=== PATIENT | female | born 1960 ===

== ENCOUNTER 2020-10-23 08:24 | Outpatient (REF) | payer OTHER, SELFPAY ==
--- NOTE | 2020-10-23 08:29 | MM_ITS ---
EXAMINATION: MM SCREENING DIGITAL BREAST TOMOSYNTHESIS, BILATERAL CLINICAL INFORMATION: Screening. Asymptomatic. The lifetime risk of breast cancer based on the Tyrer-Cuzick Model is 8%. COMPARISON: Mammography: 10/06/2018, 08/29/2017 TECHNIQUE: Digital breast tomosynthesis is performed in both the craniocaudal and mediolateral oblique views along with computer-aided detection (CAD). Synthesized 2D images are generated from the tomosynthesis. FINDINGS: The breasts are heterogeneously dense, which may obscure small masses (ACR BI-RADS breast composition Category c). There are no significant masses, abnormal calcifications, or other abnormalities. There are bilateral vascular calcifications. Some superimposed digital processing artifact from the vascular calcifications are seen inner right breast on synthesized right CC view. The axilla and skin contours are unremarkable. No significant changes. MM/MM tomosynthesis screening BI IMPRESSION: No significant changes from prior exams. ASSESSMENT: BI-RADS 2: Benign RECOMMENDATION: Routine annual mammography screening. This patient's information was entered into a reminder system with a target due date for their next mammogram.
== END 2020-10-23 08:25 | disposition home or self-care (01) ==
LOC: HO.MAMMO 08:24
PROVIDERS: PCP Internal Medicine; Visit Provider Internal Medicine
DX: Z12.31 Encounter for screening mammogram for malignant neoplasm of breast (principal)
CPT/HCPCS: 77063; 77067

== ENCOUNTER 2020-10-23 09:36 | Outpatient (REF) | payer OTHER, SELFPAY ==
[2020-10-25 20:57] LABS: TS Negative Control Passed; TS Panel A 6; TS Panel B 0; TS Positive Control Passed; TSpotTB BORDERLINE (SeeBelow)
== END 2020-10-23 09:37 | disposition home or self-care (01) ==
LOC: HO.HMGCLDS 09:36
PROVIDERS: PCP Internal Medicine; Visit Provider Internal Medicine
DX: Z11.1 Encounter for screening for respiratory tuberculosis (principal); Z12.31 Encounter for screening mammogram for malignant neoplasm of breast
CPT/HCPCS: 86481

== ENCOUNTER 2021-02-27 13:57 | Outpatient (REF) | payer OTHER, SELFPAY ==
[2021-02-27 16:54] LABS: Alanine Aminotransferase 23 U/L (0-31); Albumin Level 4.5 g/dL (3.5-5.0); Alkaline Phosphatase 100 U/L (39-117); Anion Gap 13 (12-20); Aspartate Amino Transferase 14 U/L (5-31); Bilirubin Total 0.7 mg/dL (0.0-1.0); Blood Urea Nitrogen 14 mg/dL (9-16); Calcium 9.4 mg/dL (8.4-10.2); Carbon Dioxide 27 mmol/L (22-29); Chloride 102 mmol/L (96-108); Estimated Glomerular Filt Rate > 60; Glucose Random 234 mg/dL (60-115); Potassium 4.4 mmol/L (3.3-5.1); Sodium 138 mmol/L (135-145); Total Protein 7.7 g/dL (6.5-8.0)
== END 2021-02-27 13:58 | disposition home or self-care (01) ==
LOC: HO.HMGCLDS 13:57
PROVIDERS: PCP Internal Medicine; Visit Provider Internal Medicine
DX: F41.1 Generalized anxiety disorder (principal); I10 Essential (primary) hypertension; M79.7 Fibromyalgia; M62.830 Muscle spasm of back
CPT/HCPCS: 36415; 80053

== ENCOUNTER 2021-11-01 12:44 | Outpatient (REF) | payer OTHER, SELFPAY ==
[2021-11-01 12:54] LABS: MANUAL DIFF FLAG NO
[2021-11-01 13:51] LABS: Basophils Percent Auto 0.4 % (0-2); Eosinophils Absolute Auto 0.1 X10*3/uL (0.0-0.4); Eosinophils Percent Auto 0.7 % (0-4); Hematocrit 43.4 % (37.0-47.0); Hemoglobin 14.2 g/dl (12.0-16.0); Imm Gran Abs Auto 0.02 X10*3/uL (0.00-0.03); Imm Gran Pct Auto 0.3 % (0.0-0.4); Lymphocytes Absolute Auto 2.2 X10*3/uL (1.2-4.9); Lymphocytes Percent Auto 32.2 % (20-40); Mean Corpuscular HGB Conc 32.7 g/dl (31.0-35.0); Mean Corpuscular Hemoglobin 29.5 pg (27.0-33.0); Mean Platelet Volume 9.2 fL (9.4-12.3); Monocytes Absolute Auto 0.6 X10*3/uL (0.1-1.2); Neutrophils Percent Auto 58.4 % (45-73); Platelet Count 352 X10*3/uL (160-400); Red Blood Count 4.82 X10*6/uL (4.20-5.50); Red Cell Distribution Width 11.6 % (11.0-16.0); White Blood Count 6.8 X10*3/uL (4.8-10.8)
[2021-11-01 14:14] LABS: Estimated Average Glucose 126 mg/dL
[2021-11-01 14:15] LABS: Alanine Aminotransferase 20 U/L (0-31); Albumin Level 4.6 g/dL (3.5-5.0); Alkaline Phosphatase 102 U/L (39-117); Anion Gap 13 (12-20); Aspartate Amino Transferase 14 U/L (5-31); Bilirubin Total 0.8 mg/dL (0.0-1.0); Blood Urea Nitrogen 12 mg/dL (9-16); Calcium 9.9 mg/dL (8.4-10.2); Carbon Dioxide 30 mmol/L (22-29); Chloride 104 mmol/L (96-108); Estimated Glomerular Filt Rate > 60; Glucose Random 156 mg/dL (60-115); Sodium 143 mmol/L (135-145); Total Protein 7.9 g/dL (6.5-8.0)
[2021-11-01 15:06] LABS: Microalbum/Creatinine Ratio Ur 34.1 ug/mg cr
== END 2021-11-01 12:45 | disposition home or self-care (01) ==
LOC: HO.MRI 12:44
PROVIDERS: PCP Internal Medicine; Visit Provider Psychiatry & Neurology Neurology
DX: E11.65 Type 2 diabetes mellitus with hyperglycemia (principal); F41.1 Generalized anxiety disorder; G43.909 Migraine, unspecified, not intractable, without status migrainosus; I10 Essential (primary) hypertension; M79.7 Fibromyalgia; H53.2 Diplopia
CPT/HCPCS: 36415; 80053; 82043; 83036; 85025

== ENCOUNTER 2021-11-20 17:43 | Outpatient (REF) | payer OTHER, SELFPAY ==
--- NOTE | ~2021-11-20 | MR_ITS ---
EXAMINATION: MR BRAIN WITHOUT CONTRAST CLINICAL INFORMATION: Diplopia. COMPARISON: None available. TECHNIQUE: MRI of the brain was obtained using routine sequences without contrast. FINDINGS: No focal restricted diffusion is demonstrated to suggest acute or subacute cerebral ischemia. No evidence of acute hemorrhagic products on heme-sensitive imaging. Mild hemosiderin staining along a small lacunar infarct of the left cerebellar hemisphere. Scattered periventricular and deep white matter T2 FLAIR hyperintensities consistent with mild underlying microangiopathy. Small chronic lacunar infarcts of the right thalamus and left cerebellar hemisphere. Proportional prominence of the ventricles and sulcal spaces without evidence of obstructive hydrocephalus. No abnormal mass effect. No midline shift. Normal appearance of the pituitary gland. The suprasellar cistern remains widely patent. Normal positioning of the cerebellar tonsils. Normal arterial and venous vascular flow voids are present. Normal, homogeneous marrow signal. Mild mucosal thickening of the paranasal sinuses. Moderate rightward nasal septal deviation. Ossific conchal bullosa. No signal abnormalities within the mastoids. Mild bilateral staphylomas. No additional demonstrated abnormalities of the orbits on limited evaluation. MR/MR head/brain wo con IMPRESSION: 1. No acute intracranial abnormalities. 2. Mild underlying microangiopathy. Chronic lacunar infarcts of the right thalamus and left cerebellar hemisphere. 3. Mild bilateral staphylomas. No additional demonstrated abnormalities of the orbits on limited evaluation.
== END 2021-11-20 17:44 | disposition home or self-care (01) ==
LOC: HO.MRI 17:43
PROVIDERS: Visit Provider Psychiatry & Neurology Neurology
DX: H53.2 Diplopia (principal)
CPT/HCPCS: 70551

== ENCOUNTER 2022-12-12 06:42 | Outpatient (REF) | payer OTHER, SELFPAY ==
[2022-12-12 11:23] LABS: MANUAL DIFF FLAG NO
[2022-12-12 11:38] LABS: Basophils Percent Auto 0.5 % (0-2); Eosinophils Absolute Auto 0.1 X10*3/uL (0.0-0.4); Eosinophils Percent Auto 1.4 % (0-4); Hematocrit 44.9 % (37.0-47.0); Hemoglobin 14.9 g/dl (12.0-16.0); Imm Gran Abs Auto 0.01 X10*3/uL (0.00-0.03); Imm Gran Pct Auto 0.2 % (0.0-0.4); Lymphocytes Absolute Auto 2.4 X10*3/uL (1.2-4.9); Lymphocytes Percent Auto 41.8 % (20-40); Mean Corpuscular HGB Conc 33.2 g/dl (31.0-35.0); Mean Corpuscular Hemoglobin 29.8 pg (27.0-33.0); Mean Corpuscular Volume 89.8 fL (80.0-98.0); Mean Platelet Volume 9.5 fL (9.4-12.3); Monocytes Absolute Auto 0.5 X10*3/uL (0.1-1.2); Monocytes Percent Auto 8.3 % (2-11); Neutrophils Absolute Auto 2.7 x10*3/uL (2.0-8.3); Neutrophils Percent Auto 47.8 % (45-73); Platelet Count 339 X10*3/uL (160-400); Red Cell Distribution Width 11.9 % (11.0-16.0); White Blood Count 5.7 X10*3/uL (4.8-10.8)
[2022-12-12 12:06] LABS: Alanine Aminotransferase 21 U/L (0-31); Albumin Level 4.6 g/dL (3.5-5.0); Alkaline Phosphatase 103 U/L (39-117); Anion Gap 11 (12-20); Aspartate Amino Transferase 18 U/L (5-31); Bilirubin Total 0.8 mg/dL (0.0-1.0); Blood Urea Nitrogen 11 mg/dL (9-16); Calcium 9.5 mg/dL (8.4-10.2); Carbon Dioxide 29 mmol/L (22-29); Chloride 105 mmol/L (96-108); Estimated Glomerular Filt Rate > 60; Glucose Random 151 mg/dL (60-115); Potassium 4.6 mmol/L (3.3-5.1); Sodium 140 mmol/L (135-145); Total Protein 7.6 g/dL (6.5-8.0)
[2022-12-12 12:11] LABS: Estimated Average Glucose 128 mg/dL; Hemoglobin A1c % 6.1 %
[2022-12-12 12:27] LABS: Creatinine Urine 127.37 mg/dL; Microalbum/Creatinine Ratio Ur 41.6 ug/mg cr
[2022-12-13 22:04] LABS: LDL Cholesterol Direct 189 mg/dL (<100)
[2022-12-17 15:52] LABS: TSpotTB Invalid (Negative)
== END 2022-12-12 06:43 | disposition home or self-care (01) ==
LOC: HO.HMGCLDS 06:42
PROVIDERS: PCP Internal Medicine; Visit Provider Internal Medicine
DX: Z11.1 Encounter for screening for respiratory tuberculosis (principal); M79.7 Fibromyalgia; E10.9 Type 1 diabetes mellitus without complications; F41.1 Generalized anxiety disorder; G43.909 Migraine, unspecified, not intractable, without status migrainosus; I10 Essential (primary) hypertension; Z79.4 Long term (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 of insulin
CPT/HCPCS: 36415; 80053; 82043; 83036; 83721; 85025; 86481

== ENCOUNTER 2022-12-27 06:49 | Outpatient (REF) | payer OTHER, SELFPAY ==
[2023-01-02 13:28] LABS: TSpotTB Invalid (Negative)
== END 2022-12-27 06:50 | disposition home or self-care (01) ==
LOC: HO.HMGCLDS 06:49
PROVIDERS: PCP Internal Medicine; Visit Provider Internal Medicine
DX: Z11.1 Encounter for screening for respiratory tuberculosis (principal)
CPT/HCPCS: 36415; 86481

== ENCOUNTER 2023-01-03 12:19 | Outpatient (REF) | payer OTHER, SELFPAY ==
--- NOTE | ~2023-01-03 | XR_ITS ---
EXAMINATION: XR CHEST CLINICAL INFORMATION: Respiratory tuberculosis screening COMPARISON: None TECHNIQUE: 2 views of the chest were obtained. FINDINGS: Normal symmetric lung volumes. No parenchymal consolidation. No pleural effusion. No pneumothorax. Cardiomediastinal silhouette and pulmonary vascularity are within normal limits. No acute osseous abnormalities. XR/XR chest 2V IMPRESSION: Clear lungs
== END 2023-01-03 12:20 | disposition home or self-care (01) ==
LOC: HO.HMGCX 12:19
PROVIDERS: PCP Internal Medicine; Visit Provider Internal Medicine
DX: Z11.1 Encounter for screening for respiratory tuberculosis (principal)
CPT/HCPCS: 71046

== ENCOUNTER 2023-11-19 13:35 | Outpatient (AMB) | payer OTHER, SELFPAY ==
[2023-11-19 13:37] VITALS: BP 130/68; PULSE 97; O2SAT 97; BMI 23.8
--- NOTE | 2023-11-19 13:37 | A.OFFPC_ITS ---
Vital Signs 11/19/23 13:37 Height 5 ft 3 in Weight 134 lb 6 oz BMI 23.8 BP 130/68 Blood Pressure Location Lt brachial Position Sitting Pulse 97 Pulse Source Pulse Oximeter Pulse Oximetry (%) 97 Oxygen Delivery Method Room Air Intake Visit Reasons: Overdue F/U~ Allergies lisinopril Allergy (Unknown, Verified 11/19/23 13:44) rash Medication List - Last Reconciled 11/19/23 by Gila Bragg MD amlodipine 10 mg PO DAILY aspirin (Adult Low Dose Aspirin) 81 mg PO DAILY atorvastatin 40 mg PO BEDTIME cyclobenzaprine 10 mg PO BEDTIME ergocalciferol (vitamin D2) 2,000 units PO DAILY 90 days escitalopram oxalate 10 mg PO DAILY 90 days gabapentin 300 mg PO BEDTIME 90 days ibuprofen 400 mg PO TID 90 days losartan 25 mg PO DAILY meloxicam 15 mg PO DAILY [strips one touch Verio TID] Tobacco use date assessed: 11/19/23 Dental Screening Dental Screen Date: 11/19/23 Did you have a dental visit in the last 12 months?: Yes Did you have a dental problem in the last 6 months where you did not have access to dental care?: No Was dental information given to patient?: Patient has dentist HPI Overdue F/U~ HPI Details Patient is 63-year-old female who has not been seen over 6 months Patient went to [place] as her mother . She tells me that she has been taking her medications she got them from [place] However she is now about to run out She is no longer taking gabapentin as she does not have 1 patient is complaining of pain She has fibromyalgia. She was on gabapentin 300 mg at night I am increasing the dose to b.i.d. We have told her to stop taking all NSAIDs. Blood pressure is 130/80 , she is taking amlodipine 10 mg and losartan 25 mg Continue Lexapro patient is taking that for depression and anxiety Lipid disorder treated with atorvastatin 40 mg, patient is tolerating medication Diabetes mellitus: Patient was on long-acting insulin 17 units before she went to [place], she stopped taking insulin and started taking Ozempic she is requesting a refill on that. I have sent the script for Ozempic patient was notified just in case if that is not covered I have also sent insulin start taking that as her sugars are running above 230 fasting. However if she is able to seed cone picker Ozempic she is not supposed to take both insulin and Ozempic. Lab order placed to be done fasting Chronic back pain: Patient is requesting Lidoderm patch which I have sent for her Patient speaks [place] all communication was done with help of a staff member. [facility] Medical History Fibromyalgia Encounter for general adult medical examination with abnormal findings Anxiety, generalized Vitamin D deficiency Back spasm Hypertension, essential Surgical History History of abdominal hysterectomy Family History Father Parkinson disease Mother Osteoporosis HTN (hypertension) Maternal Grandmother Cancer of kidney Maternal Grandfather Stroke Brother No problems noted. Brother No problems noted. Brother No problems noted. Sister No problems noted. Sister No problems noted. Sister No problems noted. Son No problems noted. Son No problems noted. Daughter No problems noted. Social History Housing: Apartment Alcohol intake: never Patient Tobacco Use Status: Never used Tobacco e-Cigarette/Vaping Use: Never Used service: No Current occupational status: employed Cognitive needs: No Hearing needs: No Vision needs: No Questionnaire PHQ-9 Over the last 2 weeks, how often have you been bothered by any of the following problems? 1. Little interest or pleasure in doing things: not at all 2. Feeling down, depressed, or hopeless: not at all 3. Trouble falling or staying asleep, or sleeping too much: not at all 4. Feeling tired or having little energy: not at all 5. Poor appetite or overeating: not at all 6. Feeling bad about yourself - or that you are a failure or have let yourself or your family down: not at all 7. Trouble concentrating on things, such as reading the newspaper or watching television: not at all 8. Moving or speaking so slowly that other people could have noticed. Or the opposite - being so fidgety or restless that you have been moving around a lot more than usual: not at all 9. Thoughts that you would be better off or of hurting yourself in some way: not at all Total score: 0 Depression Screening Interpretation: Negative Depression Screening Done: Yes [id number] - PHQ-9 Billing: Yes Source: Developed by Drs. Duarte Coleman, George Huerta and colleagues, with an educational chris from [employer]. Thrive Questionnaire Date Thrive assessed: 11/19/23 I am a: Patient What is your living situation today?: I have a steady place to live Within the past 12 months, did the food you bought not last and you didn't have the money to get more?: Often true Within the past 12 months, did you worry whether your food would run out before you got money to buy more?: Often true Do you have trouble paying for medicines?: Yes Do you have trouble getting transportation to medical appointments?: No Do you have trouble paying your heating and electricity bill?: Yes Do you have trouble taking care of your child, family member or friend?: No Do you have trouble with day-to-day activities such as bathing, preparing meals, shopping, managing finances, etc.?: Yes Are you currently unemployed and looking for a job?: No Are you interested in more education?: Yes Please select the resources that you would like help with: Food, Paying for medicine and Utilities Currently or been in a relationship where the following occur: no concerns reported MINDY-7 AMB Questionnaire MINDY-7 Date MINDY - 7 assessed: 11/19/23 Feeling nervous, anxious, or on edge: 1 = Several days Not being able to stop or control worryin = More than half the days Worrying too much about different things: 3 = Nearly every day Trouble relaxin = Nearly every day Being so restless that it is hard to sit still: 2 = More than half the days Becoming easily annoyed or irritable: 2 = More than half the days Feeling afraid as if something awful might happen: 0 = Not at all Total MINDY-7 score (0-4 normal; 5-9 mild; 10-14 moderate; 15-21 severe): 13 Source: Developed by Megan Armenta Kurt Kroenke and colleagues, with an educational chris from [employer]. MINDY-7 Assessment Billing MINDY-7 Assessment Tool: MINDY-7 Assessment 37414 Review of Systems Const Denies chills and Denies fever(s) ENT Denies epistaxis and Denies nasal discharge Card Denies chest pain Resp Denies chest congestion, Denies cough and Denies hemoptysis GI Denies diarrhea and Denies nausea Skin/Breast Denies rash Neuro Reports no additional complaints Psych Reports no additional complaints Endo Reports no additional complaints Physical exam (Primary Care) Vital Signs: Last Vital Signs Pulse 97 11/19/23 13:37 BP 130/68 11/19/23 13:37 Pulse Ox 97 11/19/23 13:37 Oxygen Delivery Method Room Air 11/19/23 13:37 BMI result Body Mass Index 23.8 Tobacco/Smoking Status: Tobacco use Status Tobacco use date assessed 11/19/23 11/19/23 13:38 Patient Tobacco Use Status Never used Tobacco 11/19/23 13:38 e-Cigarette/Vaping Use Never Used 11/19/23 13:38 PHQ-9: PHQ-9 Score PHQ-9: Total score 0 11/19/23 14:02 Depression Screening Interpretation: Negative Thrive Assessment: Date of Thrive Assessment Date Thrive assessed 11/19/23 11/19/23 14:02 Currently or been in a relationship where the following occur: no concerns reported Const General: cooperative, comfortable and no acute distress Orientation/consciousness: patient oriented x3 HENMT Head: Yes normocephalic Eyes General: appearance normal, both eyes and all related structures Neck Neck: Yes supple Resp Effort & Inspection: normal respiratory effort, no cough and no stridor Cardio Rhythm: regular rhythm Heart sounds: S1 normal heart sound present and S2 normal heart sound present Skin General skin exam: turgor normal Neuro General: patient oriented x3, tone normal and moves all extremities Extrem Right lower extremity: no edema Left lower extremity: no edema Assessment and Plan Assessment & Plan (1) [facility] (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 of insulin: Code(s): Z79.4 - 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 container 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 (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 of insulin (2) Insulin dependent type 1 diabetes mellitus: Code(s): E10.9 - Type 1 diabetes mellitus without complications Qualifiers: Diabetes mellitus complication detail: with autonomic neuropathy Diabetes mellitus complication status: with neurologic complications Qualified Code(s): E10.43 - Type 1 diabetes mellitus with diabetic autonomic (poly)neuropathy (3) Hypertension, essential: Code(s): I10 - Essential (primary) hypertension (4) Fibromyalgia: Code(s): M79.7 - Fibromyalgia (5) Major depression, recurrent: Code(s): F33.9 - Major depressive disorder, recurrent, unspecified Qualifiers: Active/Remission status: in partial remission Qualified Code(s): F33.41 - Major depressive disorder, recurrent, in partial remission (6) Lipid disorder: Code(s): E78.9 - Disorder of lipoprotein metabolism, unspecified (7) Migraine headache: Code(s): G43.909 - Migraine, unspecified, not intractable, without status migrainosus Qualifiers: Intractability: intractable Migraine type: unspecified Status migrainosus presence: without status migrainosus Qualified Code(s): G43.919 - Migraine, unspecified, intractable, without status migrainosus (8) Anxiety, generalized: Code(s): F41.1 - Generalized anxiety disorder (9) Vitamin D deficiency: Code(s): E55.9 - Vitamin D deficiency, unspecified (10) Back spasm: Code(s): M62.830 - Muscle spasm of back (11) Difficulty sleeping: Code(s): G47.9 - Sleep disorder, unspecified (12) Chronic pain syndrome: Code(s): G89.4 - Chronic pain syndrome Plan Patient is 63-year-old female who has not been seen over 6 months Patient went to [place] as her mother . She tells me that she has been taking her medications she got them from [facility] However she is now about to run out She is no longer taking gabapentin as she does not have 1 patient is complaining of pain She has fibromyalgia. She was on gabapentin 300 mg at night I am increasing the dose to b.i.d. We have told her to stop taking all NSAIDs. Blood pressure is 130/80 , she is taking amlodipine 10 mg and losartan 25 mg Continue Lexapro patient is taking that for depression and anxiety Lipid disorder treated with atorvastatin 40 mg, patient is tolerating medication Diabetes mellitus: Patient was on long-acting insulin 17 units before she went to [place], she stopped taking insulin and started taking Ozempic she is requesting a refill on that. I have sent the script for Ozempic patient was notified just in case if that is not covered I have also sent insulin start taking that as her sugars are running above 230 fasting. However if she is able to seed cone picker Ozempic she is not supposed to take both insulin and Ozempic. Lab order placed to be done fasting Chronic back pain: Patient is requesting Lidoderm patch which I have sent for her Difficulty sleeping: Patient has started taking CBD gummies which has hurt her. Patient speaks [place] all communication was done with help of a staff member. Orders: Orders Vitamin D 25-OH (D2 and D3) Today E10.9 - Type 1 diabetes mellitus without complications, E55.9 - Vitamin D deficiency, unspecified, E78.9 - Disorder of lipoprotein metabolism, unspecified, F33.9 - Major depressive disorder, recurrent, unspecified, F41.1 - Generalized anxiety disorder, G43.909 - Migraine, unspecified, not intractable, without status migrainosus, G47.9 - Sleep disorder, unspecified, G89.4 - Chronic pain syndrome, I10 - Essential (primary) hypertension, M62.830 - Muscle spasm of back, M79.7 - Fibromyalgia, Z79.4 - 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 container terminal (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 of insulin Vitamin B12 Today E10.9 - Type 1 diabetes mellitus without complications, E55.9 - Vitamin D deficiency, unspecified, E78.9 - Disorder of lipoprotein metabolism, unspecified, F33.9 - Major depressive disorder, recurrent, unspecified, F41.1 - Generalized anxiety disorder, G43.909 - Migraine, unspecified, not intractable, without status migrainosus, G47.9 - Sleep disorder, unspecified, G89.4 - Chronic pain syndrome, I10 - Essential (primary) hypertension, M62.830 - Muscle spasm of back, M79.7 - Fibromyalgia, Z79.4 - 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 container terminal (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 of insulin Microalbumin, Random (w Creat) Today E10.9 - Type 1 diabetes mellitus without complications, E55.9 - Vitamin D deficiency, unspecified, E78.9 - Disorder of lipoprotein metabolism, unspecified, F33.9 - Major depressive disorder, recurrent, unspecified, F41.1 - Generalized anxiety disorder, G43.909 - Migraine, unspecified, not intractable, without status migrainosus, G47.9 - Sleep disorder, unspecified, G89.4 - Chronic pain syndrome, I10 - Essential (primary) hypertension, M62.830 - Muscle spasm of back, M79.7 - Fibromyalgia, Z79.4 - [facility] (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 of insulin Hemoglobin A1c Today E10.9 - Type 1 diabetes mellitus without complications, E55.9 - Vitamin D deficiency, unspecified, E78.9 - Disorder of lipoprotein metabolism, unspecified, F33.9 - Major depressive disorder, recurrent, unsp ecified, F41.1 - Generalized anxiety disorder, G43.909 - Migraine, unspecified, not intractable, without status migrainosus, G47.9 - Sleep disorder, unspecified, G89.4 - Chronic pain syndrome, I10 - Essential (primary) hypertension, M62.830 - Muscle spasm of back, M79.7 - Fibromyalgia, Z79.4 - [facility] (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 of insulin Complete Blood Count Auto Diff Today E10.9 - Type 1 diabetes mellitus without complications, E55.9 - Vitamin D deficiency, unspecified, E78.9 - Disorder of lipoprotein metabolism, unspecified, F33.9 - Major depressive disorder, recurrent, unspecified, F41.1 - Generalized anxiety disorder, G43.909 - Migraine, unspecified, not intractable, without status migrainosus, G47.9 - Sleep disorder, unspecified, G89.4 - Chronic pain syndrome, I10 - Essential (primary) hypertension, M62.830 - Muscle spasm of back, M79.7 - Fibromyalgia, Z79.4 - [facility] (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 of insulin Comprehensive [place]. Panel Fast Today E10.9 - Type 1 diabetes mellitus without complications, E55.9 - Vitamin D deficiency, unspecified, E78.9 - Disorder of lipoprotein metabolism, unspecified, F33.9 - Major depressive disorder, recurrent, unspecified, F41.1 - Generalized anxiety disorder, G43.909 - Migraine, unspecified, not intractable, without status migrainosus, G47.9 - Sleep disorder, unspecified, G89.4 - Chronic pain syndrome, I10 - Essential (primary) hypertension, M62.830 - Muscle spasm of back, M79.7 - Fibromyalgia, Z79.4 - [facility] (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 of insulin Lipid Panel Today E10.9 - Type 1 diabetes mellitus without complications, E55.9 - Vitamin D deficiency, unspecified, E78.9 - Disorder of lipoprotein metabolism, unspecified, F33.9 - Major depressive disorder, recurrent, unspecified, F41.1 - Generalized anxiety disorder, G43.909 - Migraine, unspecified, not intractable, without status migrainosus, G47.9 - Sleep disorder, unspecified, G89.4 - Chronic pain syndrome, I10 - Essential (primary) hypertension, M62.830 - Muscle spasm of back, M79.7 - Fibromyalgia, Z79.4 - [facility] (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 of insulin TSH reflex Free T4 Today E10.9 - Type 1 diabetes mellitus without complications, E55.9 - Vitamin D deficiency, unspecified, E78.9 - Disorder of lipoprotein metabolism, unspecified, F33.9 - Major depressive disorder, recurrent, unspecified, F41.1 - Generalized anxiety disorder, G43.909 - Migraine, unspecified, not intractable, without status migrainosus, G47.9 - Sleep disorder, unspecified, G89.4 - Chronic pain syndrome, I10 - Essential (primary) hypertension, M62.830 - Muscle spasm of back, M79.7 - Fibromyalgia, Z79.4 - 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 container terminal (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 of insulin Medications: New Ozempic (semaglutide) 1 mg (0.75 mL) subcut QWEEK 3 mL 3RF NS lidocaine 5% (Lidoderm) leave on most painful area for up to 12 hrs 1 patch topical DAILY 30 ea 0RF Changed From gabapentin 300 mg PO BEDTIME 90 days 90 caps 1RF For body aches and pains M79.7 - Fibromyalgia To gabapentin 300 mg PO BID 90 days 180 caps 1RF For body aches and pains M79.7 - Fibromyalgia Refilled losartan 25 mg PO DAILY 90 tabs 1RF For high blood pressure insulin glargine U-300 conc 17 units (0.0567 mL) subcut BEDTIME 30 days 1.701 mL 0RF amlodipine 10 mg PO DAILY 90 tabs 0RF I10 - Essential (primary) hypertension aspirin (Adult Low Dose Aspirin) 81 mg PO DAILY 90 tabs 3RF atorvastatin 40 mg PO BEDTIME 90 tabs 1RF For high cholesterol ergocalciferol (vitamin D2) 2,000 units PO DAILY 90 days 90 tabs 1RF E55.9 - Vitamin D deficiency, unspecified escitalopram oxalate 10 mg PO DAILY 90 days 90 tabs 1RF For depression F41.1 - Generalized anxiety disorder Discontinued ibuprofen Take 1 tab 3 times a day with food as needed for back and joint pain[provided [place] instructions] Discontinued Reason: Doctor's Order 400 mg PO TID 90 days 270 tabs 0RF M54.5 - Low back pain meloxicam Discontinued Reason: Doctor's Order 15 mg PO DAILY 14 tabs 0RF cyclobenzaprine Discontinued Reason: Doctor's Order 10 mg PO BEDTIME 14 tabs 0RF Coding Level of Care Code Est Pt Level 5 (82816) Diagnoses 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 container terminal (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 of insulin Z79.4 Type 1 diabetes mellitus with diabetic autonomic neuropathy E10.43 Diabetes mellitus complication detail: with autonomic neuropathy Diabetes mellitus complication status: with neurologic complications Hypertension, essential I10 Fibromyalgia M79.7 Recurrent major depressive disorder, in partial remission F33.41 Active/Remission status: in partial remission Lipid disorder E78.9 Intractable migraine without status migrainosus, unspecified migraine type G43.919 Intractability: intractable Migraine type: unspecified Status migrainosus presence: without status migrainosus Anxiety, generalized F41.1 Vitamin D deficiency E55.9 Back spasm M62.830 Difficulty sleeping G47.9 Chronic pain syndrome G89.4 Additional Codes MINDY-7 Assessment Billing - MINDY-7 Assessment Tool: MINDY-7 Assessment 01263 ([id number]) Time Spent (min) 42 Comment 7 prep, 25 patient, 10 charting coordination care
== END 2023-11-19 14:05 | disposition home or self-care (01) ==
PROVIDERS: PCP Internal Medicine; Visit Provider Internal Medicine
DX: E10.43 Type 1 diabetes mellitus with diabetic autonomic (poly)neuropathy (principal); Z79.4 Long term (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 of insulin; F33.41 Major depressive disorder, recurrent, in partial remission; I10 Essential (primary) hypertension; M79.7 Fibromyalgia; E78.9 Disorder of lipoprotein metabolism, unspecified; G43.919 Migraine, unspecified, intractable, without status migrainosus; F41.1 Generalized anxiety disorder; E55.9 Vitamin D deficiency, unspecified; M62.830 Muscle spasm of back; G47.9 Sleep disorder, unspecified; G89.4 Chronic pain syndrome
CPT/HCPCS: 99215

== ENCOUNTER 2023-11-25 09:19 | Outpatient (REF) | payer OTHER, SELFPAY ==
[2023-11-25 11:45] LABS: MANUAL DIFF FLAG NO
[2023-11-25 11:50] LABS: Basophils Percent Auto 0.3 % (0-2); Eosinophils Absolute Auto 0.1 X10*3/uL (0.0-0.4); Eosinophils Percent Auto 0.9 % (0-4); Hematocrit 42.4 % (37.0-47.0); Hemoglobin 14.3 g/dl (12.0-16.0); Imm Gran Abs Auto 0.01 X10*3/uL (0.00-0.03); Imm Gran Pct Auto 0.2 % (0.0-0.4); Lymphocytes Percent Auto 34.7 % (20-40); Mean Corpuscular HGB Conc 33.7 g/dl (31.0-35.0); Mean Corpuscular Hemoglobin 30.4 pg (27.0-33.0); Mean Platelet Volume 9.6 fL (9.4-12.3); Monocytes Absolute Auto 0.5 X10*3/uL (0.1-1.2); Monocytes Percent Auto 8.6 % (2-11); Neutrophils Absolute Auto 3.2 x10*3/uL (2.0-8.3); Neutrophils Percent Auto 55.3 % (45-73); Platelet Count 341 X10*3/uL (160-400); Red Blood Count 4.71 X10*6/uL (4.20-5.50); Red Cell Distribution Width 11.6 % (11.0-16.0); White Blood Count 5.8 X10*3/uL (4.8-10.8)
[2023-11-25 12:03] LABS: Estimated Average Glucose 151 mg/dL; Hemoglobin A1c % 6.9 % (<6.0)
[2023-11-25 12:16] LABS: Creatinine Urine 134.86 mg/dL; Microalbum/Creatinine Ratio Ur 77.1 ug/mg cr (<30)
[2023-11-25 12:25] LABS: Alanine Aminotransferase 21 U/L (0-31); Albumin Level 4.4 g/dL (3.5-5.0); Alkaline Phosphatase 86 U/L (39-117); Anion Gap 13 (12-20); Aspartate Amino Transferase 13 U/L (5-31); Bilirubin Total 0.7 mg/dL (0.0-1.0); Blood Urea Nitrogen 13 mg/dL (9-16); Calcium 9.5 mg/dL (8.4-10.2); Carbon Dioxide 27 mmol/L (22-29); Chloride 103 mmol/L (96-108); Cholesterol 168 mg/dL (<200); Estimated Glomerular Filt Rate > 60; Glucose Fasting 183 mg/dL (60-99); HDL Cholesterol 41 mg/dL (>40); LDL Cholesterol Calculated 114 mg/dL (<100); Potassium 4.1 mmol/L (3.3-5.1); Sodium 139 mmol/L (135-145); Total Protein 7.9 g/dL (6.5-8.0); Triglycerides 67 mg/dL (<150)
[2023-11-25 12:41] LABS: TSH reflex Free T4 1.39 uIU/mL (0.32-4.0)
[2023-11-25 12:50] LABS: Vitamin B12 956 pg/mL (200-900)
[2023-11-29 14:59] LABS: Vitamin D 25-OH, D2 <4 ng/mL; Vitamin D 25-OH, D3 21 ng/mL; Vitamin D 25-OH, Total 21 ng/mL (30-100)
== END 2023-11-25 09:20 | disposition home or self-care (01) ==
LOC: HO.HMGCLDS 09:19
PROVIDERS: PCP Internal Medicine; Visit Provider Internal Medicine
DX: G43.909 Migraine, unspecified, not intractable, without status migrainosus (principal); F33.9 Major depressive disorder, recurrent, unspecified; E78.9 Disorder of lipoprotein metabolism, unspecified; F41.1 Generalized anxiety disorder; E55.9 Vitamin D deficiency, unspecified; M62.830 Muscle spasm of back; G47.9 Sleep disorder, unspecified; M79.7 Fibromyalgia; G89.4 Chronic pain syndrome; E10.9 Type 1 diabetes mellitus without complications; I10 Essential (primary) hypertension; Z79.4 Long term (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 of insulin
CPT/HCPCS: 36415; 80053; 80061; 82043; 82306; 82570; 82607; 83036; 84443; 85025

== ENCOUNTER 2024-02-25 13:35 | Outpatient (AMB) | payer OTHER, SELFPAY ==
[2024-02-25 13:47] VITALS: BP 130/72; PULSE 76; O2SAT 98; BMI 23.7
--- NOTE | 2024-02-25 13:48 | A.OFFPC_ITS ---
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 Accompanied by: Self / Same As Patient Allergies lisinopril Allergy (Unknown, Verified 02/25/24 13:48) rash Medication List - Last Reconciled 02/25/24 by Gila Bragg MD amlodipine 10 mg PO DAILY aspirin (Adult Low Dose Aspirin) 81 mg PO DAILY atorvastatin 40 mg PO BEDTIME ergocalciferol (vitamin D2) 2,000 units PO DAILY 90 days escitalopram oxalate 10 mg PO DAILY 90 days gabapentin 300 mg PO BID 90 days insulin glargine U-300 conc 17 units (0.0567 mL) subcut BEDTIME 30 days lidocaine 5% (Lidoderm) 1 patch topical DAILY losartan 25 mg PO DAILY Ozempic (semaglutide) 1 mg (0.75 mL) subcut QWEEK NS [strips one touch Verio TID] Tobacco use date assessed: 11/19/23 Dental Screening Dental Screen Date: 11/19/23 HPI 3 month fu HPI Details Patient is a 63-year-old female came in today for regular follow-up appointment Patient says that because of allergies she get asthma exacerbation and is requesting an updraft machine Script provided Patient is also hypertensive and would like to have a monitor, script provided for that as well Fibromyalgia stable these days patient is on gabapentin 300 mg b.i.d. Blood pressure is 130/72 , she is taking amlodipine 10 mg, and losartan 25 mg Continue Lexapro patient is taking that for depression and anxiety Lipid disorder treated with atorvastatin 40 mg, patient is tolerating medication Diabetes mellitus: Patient was on long-acting insulin 17 units , she is also on semaglutide 1 mg once a week She has stopped taking insulin, sugars are running 108 fasting, her last A1c was 6.9 in November we will repeat it again before her next visit Lab order placed to be done fasting Chronic back pain: Patient is requesting Lidoderm patch which I have sent for her Difficulty sleeping: Patient has started taking CBD gummies which has hurt her. Follow-up 3 months [facility] Medical History Fibromyalgia Encounter for general adult medical examination with abnormal findings Anxiety, generalized Vitamin D deficiency Back spasm Hypertension, essential Surgical History History of abdominal hysterectomy Family History Father Parkinson disease Mother Osteoporosis HTN (hypertension) Maternal Grandmother Cancer of kidney Maternal Grandfather Stroke Brother No problems noted. Brother No problems noted. Brother No problems noted. Sister No problems noted. Sister No problems noted. Sister No problems noted. Son No problems noted. Son No problems noted. Daughter No problems noted. Social History Housing: Apartment Alcohol intake: never Patient Tobacco Use Status: Never used Tobacco e-Cigarette/Vaping Use: Never Used service: No Current occupational status: employed Cognitive needs: No Hearing needs: No Vision needs: No Questionnaire PHQ-9 Over the last 2 weeks, how often have you been bothered by any of the following problems? 1. Little interest or pleasure in doing things: not at all 2. Feeling down, depressed, or hopeless: not at all 3. Trouble falling or staying asleep, or sleeping too much: not at all 4. Feeling tired or having little energy: not at all 5. Poor appetite or overeating: not at all 6. Feeling bad about yourself - or that you are a failure or have let yourself or your family down: not at all 7. Trouble concentrating on things, such as reading the newspaper or watching television: not at all 8. Moving or speaking so slowly that other people could have noticed. Or the opposite - being so fidgety or restless that you have been moving around a lot more than usual: not at all 9. Thoughts that you would be better off or of hurting yourself in some way: not at all Total score: 0 Depression Screening Interpretation: Negative Depression Screening Done: Yes 21356 - PHQ-9 Billing: Yes Source: Developed by Drs. Duarte Coleman, Megan Wilson, George Hernandez and colleagues, with an educational chris from [employer]. Thrive Questionnaire Date Thrive assessed: 11/19/23 MINDY-7 AMB Questionnaire MINDY-7 Date MINDY - 7 assessed: 11/19/23 Source: Developed by Drs. Duarte Coleman, Megan Wilson, George Hernandez and colleagues, with an educational chris from [employer]. Review of Systems Const Denies chills and Denies fever(s) ENT Denies epistaxis and Denies nasal discharge Card Denies chest pain Resp Denies chest congestion, Denies cough and Denies hemoptysis GI Denies diarrhea and Denies nausea Skin/Breast Denies rash Neuro Reports no additional complaints Psych Reports no additional complaints Endo Reports no additional complaints Physical exam (Primary Care) Vital Signs: Last Vital Signs Pulse 76 02/25/24 13:47 BP 130/72 02/25/24 13:47 Pulse Ox 98 02/25/24 13:47 Oxygen Delivery Method Room Air 02/25/24 13:47 BMI result Body Mass Index 23.7 Tobacco/Smoking Status: Tobacco use Status Tobacco use date assessed 11/19/23 02/25/24 13:48 Patient Tobacco Use Status Never used Tobacco 02/25/24 13:48 e-Cigarette/Vaping Use Never Used 02/25/24 13:48 PHQ-9: PHQ-9 Score PHQ-9: Total score 0 02/25/24 14:16 Depression Screening Interpretation: Negative Thrive Assessment: Date of Thrive Assessment Date Thrive assessed 11/19/23 02/25/24 13:48 Const General: cooperative, comfortable and no acute distress Orientation/consciousness: patient oriented x3 HENMT Head: Yes normocephalic Eyes General: appearance normal, both eyes and all related structures Neck Neck: Yes supple Resp Effort & Inspection: normal respiratory effort, no cough and no stridor Cardio Rhythm: regular rhythm Heart sounds: S1 normal heart sound present and S2 normal heart sound present Skin General skin exam: turgor normal Neuro General: patient oriented x3, tone normal and moves all extremities Extrem Right lower extremity: no edema Left lower extremity: no edema Assessment and Plan Assessment & Plan (1) Microalbuminuria due to type 2 diabetes mellitus: Code(s): E11.29 - Type 2 diabetes mellitus with other diabetic kidney complication; R80.9 - Proteinuria, unspecified (2) Chronic pain syndrome: Code(s): G89.4 - Chronic pain syndrome (3) Difficulty sleeping: Code(s): G47.9 - Sleep disorder, unspecified (4) Major depression, recurrent: Code(s): F33.9 - Major depressive disorder, recurrent, unspecified Qualifiers: Active/Remission status: in partial remission Qualified Code(s): F33.41 - Major depressive disorder, recurrent, in partial remission (5) Lipid disorder: Code(s): E78.9 - Disorder of lipoprotein metabolism, unspecified (6) 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: Code(s): Z79.4 - FPC (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 of insulin (7) Insulin dependent type 1 diabetes mellitus: Code(s): E10.9 - Type 1 diabetes mellitus without complications Qualifiers: Diabetes mellitus complication detail: with autonomic neuropathy Diabetes mellitus complication status: with neurologic complications Qualified Code(s): E10.43 - Type 1 diabetes mellitus with diabetic autonomic (poly)neuropathy (8) Migraine headache: Code(s): G43.909 - Migraine, unspecified, not intractable, without status migrainosus Qualifiers: Intractability: intractable Migraine type: unspecified Status migr ainosus presence: without status migrainosus Qualified Code(s): G43.919 - Migraine, unspecified, intractable, without status migrainosus (9) Vertigo: Code(s): R42 - Dizziness and giddiness (10) Fibromyalgia: Code(s): M79.7 - Fibromyalgia (11) Hypertension, essential: Code(s): I10 - Essential (primary) hypertension (12) Anxiety, generalized: Code(s): F41.1 - Generalized anxiety disorder (13) Asthma exacerbation: Code(s): J45.901 - Unspecified asthma with (acute) exacerbation Qualifiers: Asthma severity: mild Asthma persistence: intermittent Qualified Code(s): J45.21 - Mild intermittent asthma with (acute) exacerbation (14) Vitamin D deficiency: Code(s): E55.9 - Vitamin D deficiency, unspecified Plan Patient is 63-year-old female who has not been seen over 6 months Patient went to [place] as her mother . She tells me that she has been taking her medications she got them from [place] However she is now about to run out She is no longer taking gabapentin as she does not have 1 patient is complaining of pain She has fibromyalgia. She was on gabapentin 300 mg at night I am increasing the dose to b.i.d. We have told her to stop taking all NSAIDs. Blood pressure is 130/80 , she is taking amlodipine 10 mg and losartan 25 mg Continue Lexapro patient is taking that for depression and anxiety Lipid disorder treated with atorvastatin 40 mg, patient is tolerating medication Diabetes mellitus: Patient was on long-acting insulin 17 units before she went to [place], she stopped taking insulin and started taking Ozempic she is requesting a refill on that. I have sent the script for Ozempic patient was notified just in case if that is not covered I have also sent insulin start taking that as her sugars are running above 230 fasting. 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 Lab order placed to be done fasting Chronic back pain: Patient is requesting Lidoderm patch which I have sent for her Difficulty sleeping: Patient has started taking CBD gummies which has hurt her. Patient speaks Welsh all communication was done with help of a staff member. Orders: Orders Hemoglobin A1c Today E10.43 - Type 1 diabetes mellitus with diabetic autonomic (poly)neuropathy, E11.29 - Type 2 diabetes mellitus with other diabetic kidney complication, E78.9 - Disorder of lipoprotein metabolism, unspecified, F33.41 - Major depressive disorder, recurrent, in partial remission, F41.1 - Generalized anxiety disorder, G43.919 - Migraine, unspecified, intractable, without status migrainosus, G47.9 - Sleep disorder, unspecified, G89.4 - Chronic pain syndrome, I10 - Essential (primary) hypertension, M79.7 - Fibromyalgia, R42 - Dizziness and giddiness, R80.9 - Proteinuria, unspecified, Z79.4 - 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 Microalbumin, Random (w Creat) Today E10.43 - Type 1 diabetes mellitus with diabetic autonomic (poly)neuropathy, E11.29 - Type 2 diabetes mellitus with other diabetic kidney complication, E78.9 - Disorder of lipoprotein metabolism, unspecified, F33.41 - Major depressive disorder, recurrent, in partial remission, F41.1 - Generalized anxiety disorder, G43.919 - Migraine, unspecified, intractable, without status migrainosus, G47.9 - Sleep disorder, unspecified, G89.4 - Chronic pain syndrome, I10 - Essential (primary) hypertension, M79.7 - Fibromyalgia, R42 - Dizziness and giddiness, R80.9 - Proteinuria, unspecified, Z79.4 - 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 Complete Blood Count Auto Diff Today E10.43 - Type 1 diabetes mellitus with diabetic autonomic (poly)neuropathy, E11.29 - Type 2 diabetes mellitus with other diabetic kidney complication, E78.9 - Disorder of lipoprotein metabolism, unspecified, F33.41 - Major depressive disorder, recurrent, in partial remission, F41.1 - Generalized anxiety disorder, G43.919 - Migraine, unspecified, intractable, without status migrainosus, G47.9 - Sleep disorder, unspecified, G89.4 - Chronic pain syndrome, I10 - Essential (primary) hypertension, M79.7 - Fibromyalgia, R42 - Dizziness and giddiness, R80.9 - Proteinuria, unspecified, Z79.4 - 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 Panel Today E10.43 - Type 1 diabetes mellitus with diabetic autonomic (poly)neuropathy, E11.29 - Type 2 diabetes mellitus with other diabeti c kidney complication, E78.9 - Disorder of lipoprotein metabolism, unspecified, F33.41 - Major depressive disorder, recurrent, in partial remission, F41.1 - Generalized anxiety disorder, G43.919 - Migraine, unspecified, intractable, without status migrainosus, G47.9 - Sleep disorder, unspecified, G89.4 - Chronic pain syndrome, I10 - Essential (primary) hypertension, M79.7 - Fibromyalgia, R42 - Dizziness and giddiness, R80.9 - Proteinuria, unspecified, Z79.4 - 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 Medications: New [Blood pressure monitor] As directed 1 ea 0RF I10 - Essential (primary) hypertension albuterol sulfate 0.63 mg (3 mL) inhalation QID PRN 75 mL 0RF shortness of breath or wheezing [Updraft machine] As directed 1 ea 0RF J45.901 - Unspecified asthma with (acute) exacerbation Coding Level of Care Code Est Pt Level 4 (81401) Diagnoses Microalbuminuria due to type 2 diabetes mellitus E11.29; R80.9 Chronic pain syndrome G89.4 Difficulty sleeping G47.9 Recurrent major depressive disorder, in partial remission F33.41 Active/Remission status: in partial remission Lipid disorder E78.9 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 Z79.4 Type 1 diabetes mellitus with diabetic autonomic neuropathy E10.43 Diabetes mellitus complication detail: with autonomic neuropathy Diabetes mellitus complication status: with neurologic complications Intractable migraine without status migrainosus, unspecified migraine type G43.919 Intractability: intractable Migraine type: unspecified Status migrainosus presence: without status migrainosus Vertigo R42 Fibromyalgia M79.7 Hypertension, essential I10 Anxiety, generalized F41.1 Mild intermittent asthma with exacerbation J45.21 Asthma severity: mild Asthma persistence: intermittent Vitamin D deficiency E55.9
== END 2024-02-25 14:17 | disposition home or self-care (01) ==
PROVIDERS: PCP Internal Medicine; Visit Provider Internal Medicine
DX: E11.29 Type 2 diabetes mellitus with other diabetic kidney complication (principal); F33.41 Major depressive disorder, recurrent, in partial remission; Z79.4 Long term (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 of insulin; R80.9 Proteinuria, unspecified; G89.4 Chronic pain syndrome; G47.9 Sleep disorder, unspecified; E78.9 Disorder of lipoprotein metabolism, unspecified; G43.919 Migraine, unspecified, intractable, without status migrainosus; R42 Dizziness and giddiness; M79.7 Fibromyalgia; I10 Essential (primary) hypertension
CPT/HCPCS: 99214

== ENCOUNTER 2024-04-09 07:36 | Outpatient (AMB) | payer OTHER, SELFPAY ==
[2024-04-09 07:39] VITALS: BP 110/70; PULSE 68; O2SAT 99; BMI 22.7
--- NOTE | 2024-04-09 07:39 | A.OFFPC_ITS ---
Vital Signs 04/09/24 07:39 Height 5 ft 3 in Weight 128 lb BMI 22.7 BP 110/70 Blood Pressure Location Rt brachial Position Sitting Pulse 68 Pulse Source Pulse Oximeter Pulse Oximetry (%) 99 Oxygen Delivery Method Room Air Intake Visit Reasons: follow up rescheduled Allergies lisinopril Allergy (Unknown, Verified 04/09/24 07:42) rash Medication List - Last Reconciled 04/09/24 by Gila Bragg MD albuterol sulfate 0.63 mg (3 mL) inhalation QID PRN amlodipine 10 mg PO DAILY aspirin (Adult Low Dose Aspirin) 81 mg PO DAILY atorvastatin 40 mg PO BEDTIME [Blood pressure monitor As directed] ergocalciferol (vitamin D2) 2,000 units PO DAILY 90 days escitalopram oxalate 10 mg PO DAILY 90 days gabapentin 300 mg PO BID 90 days insulin glargine U-300 conc 17 units (0.0567 mL) subcut BEDTIME lidocaine 5% (Lidoderm) 1 patch topical DAILY losartan 25 mg PO DAILY Ozempic (semaglutide) 1 mg (0.75 mL) subcut QWEEK NS [strips one touch Verio TID] [Updraft machine As directed] Tobacco use date assessed: 04/09/24 Dental Screening Dental Screen Date: 04/09/24 Did you have a dental visit in the last 12 months?: No Was dental information given to patient?: No HPI follow up rescheduled HPI Details Patient is 63-year-old female came in for her regular follow-up appointment Patient suffers from fibromyalgia and multiple joint arthrosis She is on gabapentin 300 mg b.i.d., refill sent Blood pressure is well-controlled , she is taking amlodipine 10 mg and losartan 25 mg Continue Lexapro patient is taking that for depression and anxiety Lipid disorder treated with atorvastatin 40 mg, patient is tolerating medication Diabetes mellitus: She is on Ozempic once a week and is doing well , her last hemoglobin A1c was 6.9 in November She forgot to do labs, patient will have them done today Chronic back pain: Using Lidoderm patches with some relief Difficulty sleeping: Patient has started taking CBD gummies She already have appointment for May set up. [facility] Medical History Fibromyalgia Encounter for general adult medical examination with abnormal findings Anxiety, generalized Vitamin D deficiency Back spasm Hypertension, essential Surgical History History of abdominal hysterectomy Family History Father Parkinson disease Mother Osteoporosis HTN (hypertension) Maternal Grandmother Cancer of kidney Maternal Grandfather Stroke Brother No problems noted. Brother No problems noted. Brother No problems noted. Sister No problems noted. Sister No problems noted. Sister No problems noted. Son No problems noted. Son No problems noted. Daughter No problems noted. Social History Housing: Apartment Alcohol intake: never Patient Tobacco Use Status: Never used Tobacco e-Cigarette/Vaping Use: Never Used service: No Current occupational status: employed Cognitive needs: No Hearing needs: No Vision needs: No Questionnaire Thrive Questionnaire Date Thrive assessed: 11/19/23 MNIDY-7 AMB Questionnaire MINDY-7 Date MINDY - 7 assessed: 11/19/23 Source: Developed by Drs. Duarte Coleman, Megan Wilson, George Hernandez and colleagues, with an educational chris from [employer]. Review of Systems Const Denies chills and Denies fever(s) ENT Denies epistaxis and Denies nasal discharge Card Denies chest pain Resp Denies chest congestion, Denies cough and Denies hemoptysis GI Denies diarrhea and Denies nausea Skin/Breast Denies rash Neuro Reports no additional complaints Psych Reports no additional complaints Endo Reports no additional complaints Physical exam (Primary Care) Vital Signs: Last Vital Signs Pulse 68 04/09/24 07:39 BP 110/70 04/09/24 07:39 Pulse Ox 99 04/09/24 07:39 Oxygen Delivery Method Room Air 04/09/24 07:39 BMI result Body Mass Index 22.7 Tobacco/Smoking Status: Tobacco use Status Tobacco use date assessed 04/09/24 04/09/24 07:44 Patient Tobacco Use Status Never used Tobacco 04/09/24 07:41 e-Cigarette/Vaping Use Never Used 04/09/24 07:41 Thrive Assessment: Date of Thrive Assessment Date Thrive assessed 11/19/23 04/09/24 07:41 Const General: cooperative, comfortable and no acute distress Orientation/consciousness: patient oriented x3 HENMD Head: Yes normocephalic Eyes General: appearance normal, both eyes and all related structures Neck Neck: Yes supple Resp Effort & Inspection: normal respiratory effort, no cough and no stridor Cardio Rhythm: regular rhythm Heart sounds: S1 normal heart sound present and S2 normal heart sound present Skin General skin exam: turgor normal Neuro General: patient oriented x3, tone normal and moves all extremities Extrem Right lower extremity: no edema Left lower extremity: no edema Assessment and Plan Assessment & Plan (1) Microalbuminuria due to type 2 diabetes mellitus: Code(s): E11.29 - Type 2 diabetes mellitus with other diabetic kidney complication; R80.9 - Proteinuria, unspecified (2) Chronic pain syndrome: Code(s): G89.4 - Chronic pain syndrome (3) Difficulty sleeping: Code(s): G47.9 - Sleep disorder, unspecified (4) Major depression, recurrent: Code(s): F33.9 - Major depressive disorder, recurrent, unspecified Qualifiers: Active/Remission status: in partial remission Qualified Code(s): F33.41 - Major depressive disorder, recurrent, in partial remission (5) Lipid disorder: Code(s): E78.9 - Disorder of lipoprotein metabolism, unspecified (6) 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: Code(s): Z79.4 - 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 (7) Insulin dependent type 1 diabetes mellitus: Code(s): E10.9 - Type 1 diabetes mellitus without complications Qualifiers: Diabetes mellitus complication status: with neurologic complications Diabetes mellitus complication detail: with autonomic neuropathy Qualified Code (s): E10.43 - Type 1 diabetes mellitus with diabetic autonomic (poly)neuropathy (8) Migraine headache: Code(s): G43.909 - Migraine, unspecified, not intractable, without status migrainosus Qualifiers: Migraine type: unspecified Status migrainosus presence: without status migrainosus Intractability: intractable Qualified Code(s): G43.919 - Migraine, unspecified, intractable, without status migrainosus (9) Vertigo: Code(s): R42 - Dizziness and giddiness (10) Fibromyalgia: Code(s): M79.7 - Fibromyalgia (11) Hypertension, essential: Code(s): I10 - Essential (primary) hypertension (12) Anxiety, generalized: Code(s): F41.1 - Generalized anxiety disorder (13) Vitamin D deficiency: Code(s): E55.9 - Vitamin D deficiency, unspecified (14) Asthma, moderate persistent: Code(s): J45.40 - Moderate persistent asthma, uncomplicated Qualifiers: Asthma complication type: uncomplicated Qualified Code(s): J45.40 - Moderate persistent asthma, uncomplicated Plan Patient is 63-year-old female came in for her regular follow-up appointment She has a history of asthma, doing well at this time Patient suffers from fibromyalgia and multiple joint arthrosis She is on gabapentin 300 mg b.i.d., refill sent Blood pressure is well-controlled , she is taking amlodipine 10 mg and losartan 25 mg Continue Lexapro patient is taking that for depression and anxiety Lipid disorder treated with atorvastatin 40 mg, patient is tolerating medication Diabetes mellitus: She is on Ozempic once a week and is doing well , her last hemoglobin A1c was 6.9 in November She forgot to do labs, patient will have them done today Chronic back pain: Using Lidoderm patches with some relief Difficulty sleeping: Patient has started taking CBD gummies She already have appointment for May set up. 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 Z79.4 Type 1 diabetes mellitus with diabetic autonomic neuropathy E10.43 Diabetes mellitus complication status: with neurologic complications Diabetes mellitus complication detail: with autonomic neuropathy Intractable migraine without status migrainosus, unspecified migraine type G43.919 Migraine type: unspecified Status migrainosus presence: without status migrainosus Intractability: intractable Vertigo R42 Fibromyalgia M79.7 Hypertension, essential I10 Anxiety, generalized F41.1 Vitamin D deficiency E55.9 Moderate persistent asthma without complication J45.40 Asthma complication type: uncomplicated
== END 2024-04-09 08:59 | disposition home or self-care (01) ==
PROVIDERS: PCP Internal Medicine; Visit Provider Internal Medicine
DX: E11.29 Type 2 diabetes mellitus with other diabetic kidney complication (principal); F33.41 Major depressive disorder, recurrent, in partial remission; Z79.4 Long term (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 of insulin; R80.9 Proteinuria, unspecified; G89.4 Chronic pain syndrome; G47.9 Sleep disorder, unspecified; E78.9 Disorder of lipoprotein metabolism, unspecified; G43.919 Migraine, unspecified, intractable, without status migrainosus; R42 Dizziness and giddiness; M79.7 Fibromyalgia; I10 Essential (primary) hypertension
CPT/HCPCS: 99214; G2211

== ENCOUNTER 2024-08-09 12:10 | Emergency (ER) | payer MEDICAID, SELFPAY ==
[2024-08-09 13:13] VITALS: BP 158/89; PULSE 77; RESP 18; O2SAT 96; BMI 19.7
--- NOTE | 2024-08-09 13:14 | ED_ITS ---
HPI - General Adult General Chief complaint: Recheck/Abnormal Lab/Rx Stated complaint: High blood sugar Time Seen by Provider: 08/09/24 21:04 Source: patient Mode of arrival: ambulatory Limitations: no limitations History of Present Illness ED Provider: Dr. Viviana Wells HPI narrative: Patient comes to the emergency room complaining of high blood sugar. Patient states that she checked her blood sugar today with a glucometer of 1 of her patient states she takes care during the day and noted to be above 300. Patient states that she is known to be diabetic. 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 Patient states that it would cost her approximately 350 dollars a month for her medications which she can not afford. Patient states that instead she has been trying to manage her diabetes with diet and exercise, patient states that over the last couple of months she lost 22 lb. Patient states she has a new insurance which will start tomorrow. Patient has no symptoms Related Data Previous Rx's ?Medication ?Instructions ?Recorded strips one touch Verio #100 ea 06/13/21 lidocaine 5 % topical patch 1 patch topical DAILY #30 ea 11/19/23 (Lidoderm) aspirin 81 mg tablet,delayed 81 mg PO DAILY #90 tabs 02/03/24 release (Adult Low Dose Aspirin) Blood pressure monitor #1 ea 02/25/24 Updraft machine #1 ea 02/25/24 albuterol sulfate 0.63 mg/3 mL 0.63 mg (3 mL) inhalation QID PRN 02/25/24 solution for nebulization shortness of breath or wheezing #75 mL escitalopram oxalate 10 mg tablet 10 mg PO DAILY For depression 90 03/15/24 days #90 tabs atorvastatin 40 mg tablet 40 mg PO BEDTIME For high 05/05/24 cholesterol #90 tabs ergocalciferol (vitamin D2) 50 mcg 2,000 unit PO DAILY 90 days #90 05/05/24 (2,000 unit) tablet tabs gabapentin 300 mg capsule 300 mg PO BID For body aches and 05/05/24 pains 90 days #180 caps losartan 25 mg tablet 25 mg PO DAILY For high blood 05/05/24 pressure #90 tabs Ozempic 1 mg/dose (4 mg/3 mL) 1 mg (0.75 mL) subcut QWEEK #9 mL 07/09/24 subcutaneous pen injector (semaglutide) amlodipine 10 mg tablet 10 mg PO DAILY #90 tabs 07/09/24 Touwernero SoloStar U-300 Insulin 300 17 unit (0.0567 mL) subcut BEDTIME 07/13/24 unit/mL (1.5 mL) subcutaneous pen #4.5 mL (insulin glargine U-300 conc) metformin 500 mg tablet 500 mg PO BID #60 tabs 08/09/24 Allergies Allergy/AdvReac Type Severity Reaction Status Date / Time lisinopril Allergy Unknown rash Verified 08/09/24 13:16 Review of Systems 2 Review of Systems: Constitutional : No Weight loss, No Fever, No Chills, No Night Sweats, No Fatigue, No Malaise ENT/Mouth : No Hearing loss, No Ear Pain, No Nasal Congestion, No Sinus Pain, No Hoarseness, No sore throat, No Rhinorrhea, No Swallowing Difficulty Eyes: No Eye Pain, No Swelling, No Redness, No Foreign Body, No Discharge, No Vision Changes Cardiovascular : No Chest Pain, No SOB, No Dyspnea on Exertion, No Orthopnea, No Edema, No Palpitations Respiratory : No Cough, No Sputum, No Wheezing, No Smoke Exposure, No Dyspnea Gastrointestinal : No Nausea, No Vomiting, No Diarrhea, No Constipation, No abdominal Pain, No Hematochezia, No Melena Genitourinary : no irregular bleeding, No Dysuria, No Urinary Frequency, No Hematuria, No Urinary Incontinence, No Urgency, No Flank Pain, No Urinary Flow Changes, No Hesitancy Musculoskeletal : No joint pain, No Myalgias, No Joint Swelling Skin : No Skin Lesions, No rash Neuro : No Weakness, No Numbness, No Paresthesias, No Loss of Consciousness, No Dizziness, No Headache Psych : No Anxiety/Panic, No Depression, No SI/HI/AH/VH, No Social Issues, Heme/Lymph: No Bruising, No Bleeding,No Lymphadenopathy Endocrine : No Polyuria, No Polydipsia, No Temperature Intolerance [facility] Past Medical History Medical History Fibromyalgia Encounter for general adult medical examination with abnormal findings Anxiety, generalized Vitamin D deficiency Back spasm Hypertension, essential Surgical History History of abdominal hysterectomy Family History Family History Father Parkinson disease Mother Osteoporosis HTN (hypertension) Maternal Grandmother Cancer of kidney Maternal Grandfather Stroke Brother No problems noted. Brother No problems noted. Brother No problems noted. Sister No problems noted. Sister No problems noted. Sister No problems noted. Son No problems noted. Son No problems noted. Daughter No problems noted. Social History Social History Housing: Apartment Alcohol intake: never Patient Tobacco Use Status: Never used Tobacco e-Cigarette/Vaping Use: Never Used Do you have a plan to hurt others: No Plan service: No Current occupational status: employed Cognitive needs: No Hearing needs: No Vision needs: No Physical Exam ED Vital Signs: Vital Signs - 24 hr 08/09/24 13:13 Pulse Rate 77 Respiratory Rate 18 Blood Pressure 158/89 H Pulse Oximetry 96 Oxygen Delivery Method Room Air BMI result Body Mass Index 19.7 Const Other: Appearance: Alert. Oriented X3. No acute distress. Eyes: Pupils equal, round and reactive to light. ENT: Pharynx normal. Neck: Normal inspection. Neck supple. No lymph nodes noted. No crepitus CVS: Normal heart rate and rhythm. Pulses normal. Normal S1 and S2 Respiratory: No respiratory distress. Breath sounds normal. No Wheezing. No rales Abdomen: Soft and nontender. No rigidity. No distention. Skin: Skin warm and dry. Normal skin color. Normal skin turgor. Extremities: No lower extremity edema. No Lacerations. No Rash Neuro: Oriented X 3. No motor deficit. No sensory deficit. Moving all extremities. No slurred speech. CN 2 through 12 grossly intact Psych: calm, cooperative, normal affect Course Course Course Narrative: RME, this is a rapid medical exam performed by Manjinder Garcia please refer to primary provider for complete H&P- 64-year-old female presents for evaluation of high blood sugar. She has a history of asthma, diabetes presents for evaluation of elevated blood sugar. She reports an hour prior to arrival her blood sugar was 394. She states that she stopped using her insulin because she did not like poking herself. Plan for labs including beta hydroxybutyrate Medical Decision Making Medical Decision Making [facility] Narrative: My interpretation of labs: Normal hematology and chemistry. Initial glucose 311, then decreased to 165, gap closed. -patient states that she would like to avoid restarting insulin. I discussed with the patient her previous management of diabetes. Patient states that she was started from nothing straight into insulin treatment without metformin or any oral medications. Inserting that the patient has been managing her diabetes diet and exercise and recently lost weight, it is reasonable to start the patient's treatment again with metformin b.i.d.. Discussed the side effects with the patient. Patient agreeable. Patient aware that she needs to have good follow-up with her primary care physician and a log of her blood sugars Differential Diagnosis Differential Diagnoses: The differential diagnosis associated with the presentation includes (Hyperglycemia, medication noncompliance, insurance problems) Lab Data [facility] Lab Attestation statement: I reviewed the patient's lab results. 08/09/24 13:41 08/09/24 13:41 Labs: Lab Results 08/09/24 08/09/24 08/09/24 Range/Units 13:41 13:47 19:55 WBC 6.4 (4.8-10.8) X10*3/uL RBC 4.49 (4.20-5.50) X10*6/uL Hgb 13.9 (12.0-16.0) g/dl Hct 40.5 (37.0-47.0) % MCV 90.2 (80.0-98.0) fL MCH 31.0 (27.0-33.0) pg MCHC 34.3 (31.0-35.0) g/dl RDW 11.3 (11.0-16.0) % Plt Count 344 (160-400) X10*3/uL MPV 9.1 L (9.4-12.3) fL Immature Gran % (Auto) 0.2 (0.0-0.4) % Neut % (Auto) 58.6 (45-73) % Lymph % (Auto) 33.4 (20-40) % [place] % (Auto) 7.3 (2-11) % Eos % (Auto) 0.3 (0-4) % Baso % (Auto) 0.2 (0-2) % Lymph # (Auto) 2.1 (1.2-4.9) X10*3/uL [place] # (Auto) 0.5 (0.1-1.2) X10*3/uL Eos # (Auto) 0.0 (0.0-0.4) X10*3/uL Baso # (Auto) 0.0 (0.0-0.2) X10*3/uL Abs Immat Gran (auto) 0.01 (0.00-0.03) X10*3/uL Absolute Neuts (auto) 3.8 (2.0-8.3) x10*3/uL Absolute Nucleated RBC 0.000 (0.0-0.012) X10*3/uL Nucleated RBC % (auto) 0.0 (0.0-0.2) /100WBC VBG pH 7.37 (7.32-7.43) VBG pCO2 49 mmHg VBG pO2 34 mmHg VBG HCO3 29 H (22-26) mmol/L VBG O2 Saturation 53.0 % VBG Base Excess 3.3 mmol/L Sodium 134 L (135-145) mmol/L Potassium 4.4 (3.3-5.1) mmol/L Chloride 99 (96-108) mmol/L Carbon Dioxide 27 (22-29) mmol/L Anion Gap 12 (12-20) BUN 13 (9-16) mg/dL Creatinine 0.89 (0.5-1.4) mg/dL Estim Creat Clear Calc 52.1 Estimated GFR > 60 POC Glucose 165 H (60-115) mg/dL Random Glucose 311 H (60-115) mg/dL Calcium 9.9 (8.4-10.2) mg/dL Total Bilirubin 0.8 (0.0-1.0) mg/dL AST 19 (5-31) U/L ALT 31 (0-31) U/L Alkaline Phosphatase 99 (39-117) U/L Total Protein 7.8 (6.5-8.0) g/dL Albumin 4.5 (3.5-5.0) g/dL Lipase 22 (8-78) U/L Beta-Hydroxybutyrate 0.49 H (0.02-0.27) mmol/L Discharge Plan Discharge Clinical Impression: Hyperglycemia Patient Disposition: Home, Self-Care Instructions: Diabetic Hyperglycemia (ED) Additional Instructions: Please follow-up with your primary care physician tomorrow. If you have any worsening or new symptoms, please return to the emergency room or call 911 Prescriptions: New metformin 500 mg tablet 500 mg PO BID Qty: 60 3RF No Action aspirin [Adult Low Dose Aspirin] 81 mg tablet,delayed release (DR/EC) 81 mg PO DAILY Qty: 90 3RF escitalopram oxalate 10 mg tablet 10 mg PO DAILY 90 Days Qty: 90 1RF atorvastatin 40 mg tablet 40 mg PO BEDTIME Qty: 90 1RF ergocalciferol (vitamin D2) 50 mcg (2,000 unit) tablet 2,000 unit PO DAILY 90 Days Qty: 90 1RF gabapentin 300 mg capsule 300 mg PO BID 90 Days Qty: 180 1RF losartan 25 mg tablet 25 mg PO DAILY Qty: 90 1RF Ozempic 1 mg/dose (4 mg/3 mL) pen injector 1 mg subcut QWEEK Qty: 9 0RF amlodipine 10 mg tablet 10 mg PO DAILY Qty: 90 0RF insulin glargine U-300 conc [Toujeo SoloStar U-300 Insulin] 300 unit/mL (1.5 mL) insulin pen 17 unit subcut BEDTIME Qty: 4.5 0RF (DME) strips one touch Verio See Rx Instructions .Route .MEDSUPPLY Qty: 100 1RF Rx Instructions: TID lidocaine [Lidoderm] 5 % adhesive patch,medicated 1 patch topical DAILY Qty: 30 0RF Rx Instructions: leave on most painful area for up to 12 hrs (DME) Blood pressure monitor Medium See Rx Instructions .Route .MEDSUPPLY Qty: 1 0RF Rx Instructions: As directed (DME) Updraft machine See Rx Instructions .Route .MEDSUPPLY Qty: 1 0RF Rx Instructions: As directed albuterol sulfate 0.63 mg/3 mL solution for nebulization 0.63 mg inhalation QID PRN (Reason: shortness of breath or wheezing) Qty: 75 0RF Print Language: Ukrainian
--- NOTE | 2024-08-09 13:17 | ECG_ITS ---
Test Reason : PAIN Blood Pressure : / mmHG Vent. Rate : 070 BPM Atrial Rate : 070 BPM P-R Int : 166 ms QRS Dur : 090 ms QT Int : 404 ms P-R-T Axes : 000 -27 -13 degrees QTc Int : 436 ms Normal sinus rhythm Normal ECG When compared with ECG of 22-FEB-2016 17:13, QRS axis Shifted left Referred By: Oli Garcia Electronically Signed By:MICHELLE BENTON
[2024-08-09 13:46] LABS: MANUAL DIFF FLAG NO
[2024-08-09 13:48] LABS: Basophils Percent Auto 0.2 % (0-2); Eosinophils Percent Auto 0.3 % (0-4); Hematocrit 40.5 % (37.0-47.0); Hemoglobin 13.9 g/dl (12.0-16.0); Imm Gran Abs Auto 0.01 X10*3/uL (0.00-0.03); Imm Gran Pct Auto 0.2 % (0.0-0.4); Lymphocytes Absolute Auto 2.1 X10*3/uL (1.2-4.9); Lymphocytes Percent Auto 33.4 % (20-40); Mean Corpuscular HGB Conc 34.3 g/dl (31.0-35.0); Mean Corpuscular Volume 90.2 fL (80.0-98.0); Mean Platelet Volume 9.1 fL (9.4-12.3); Monocytes Absolute Auto 0.5 X10*3/uL (0.1-1.2); Monocytes Percent Auto 7.3 % (2-11); Neutrophils Absolute Auto 3.8 x10*3/uL (2.0-8.3); Neutrophils Percent Auto 58.6 % (45-73); Platelet Count 344 X10*3/uL (160-400); Red Blood Count 4.49 X10*6/uL (4.20-5.50); Red Cell Distribution Width 11.3 % (11.0-16.0); White Blood Count 6.4 X10*3/uL (4.8-10.8)
[2024-08-09 13:51] LABS: VBG Base Excess 3.3 mmol/L; VBG HCO3 29 mmol/L (22-26); VBG pCO2 49 mmHg; VBG pH 7.37 (7.32-7.43); VBG pO2 34 mmHg
[2024-08-09 13:51] LABS: Venous Blood Gas Refer to POC result
[2024-08-09 14:03] LABS: Alanine Aminotransferase 31 U/L (0-31); Albumin Level 4.5 g/dL (3.5-5.0); Alkaline Phosphatase 99 U/L (39-117); Anion Gap 12 (12-20); Aspartate Amino Transferase 19 U/L (5-31); Beta-Hydroxybutyrate 0.49 mmol/L (0.02-0.27); Bilirubin Total 0.8 mg/dL (0.0-1.0); Blood Urea Nitrogen 13 mg/dL (9-16); Calcium 9.9 mg/dL (8.4-10.2); Carbon Dioxide 27 mmol/L (22-29); Chloride 99 mmol/L (96-108); Creatinine Clr Calc Pharmacy 52.1; Estimated Glomerular Filt Rate > 60; Glucose Random 311 mg/dL (60-115); Lipase 22 U/L (8-78); Potassium 4.4 mmol/L (3.3-5.1); Sodium 134 mmol/L (135-145); Total Protein 7.8 g/dL (6.5-8.0)
--- NOTE | 2024-08-09 19:57 | PC.NURSE ---
POC Glucose 165.
[2024-08-09 19:59] LABS: Glucose, Whole Blood 165 mg/dL (60-115)
[2024-08-09 21:45] VITALS: BP 142/79; PULSE 62; RESP 16; TEMP 36.2; O2SAT 95
== END 2024-08-09 21:46 | disposition home or self-care (01) ==
PROVIDERS: Physician Assistant; Emergency Provider Emergency Medicine; PCP Internal Medicine
DX: E11.65 Type 2 diabetes mellitus with hyperglycemia (principal); I10 Essential (primary) hypertension
CPT/HCPCS: 36415; 80053; 82010; 82803; 82947; 83690; 85025; 93005; 99283; 99284

== ENCOUNTER 2024-08-11 09:06 | Emergency (ER) | payer MEDICAID, SELFPAY ==
[2024-08-11 09:12] VITALS: BP 135/79; PULSE 79; RESP 16; TEMP 2.6; TEMP 36.6; O2SAT 98
--- NOTE | 2024-08-11 09:35 | ED_ITS ---
HPI - General Adult General Chief complaint: Recheck/Abnormal Lab/Rx Stated complaint: high blood sugar-diabetic Time Seen by Provider: 08/11/24 09:33 Source: patient Mode of arrival: ambulatory Limitations: no limitations History of Present Illness HPI narrative: 64-year-old female insulin-dependent diabetic who stopped taking her insulin due to cost she states she stopped taking because she was tired of taking in triage. She was seen here 3 days ago and states that it is due to cost. She has past medical history significant for hypertension hyperlipidemia diabetes asthma noncompliant with her medications. She states she is having excessive thirst she denies any falls or injuries chest pain cough Related Data Previous Rx's ?Medication ?Instructions ?Recorded strips one touch Verio #100 ea 06/13/21 lidocaine 5 % topical patch 1 patch topical DAILY #30 ea 11/19/23 (Lidoderm) aspirin 81 mg tablet,delayed 81 mg PO DAILY #90 tabs 02/03/24 release (Adult Low Dose Aspirin) Blood pressure monitor #1 ea 02/25/24 Updraft machine #1 ea 02/25/24 albuterol sulfate 0.63 mg/3 mL 0.63 mg (3 mL) inhalation QID PRN 02/25/24 solution for nebulization shortness of breath or wheezing #75 mL escitalopram oxalate 10 mg tablet 10 mg PO DAILY For depression 90 03/15/24 days #90 tabs atorvastatin 40 mg tablet 40 mg PO BEDTIME For high 05/05/24 cholesterol #90 tabs ergocalciferol (vitamin D2) 50 mcg 2,000 unit PO DAILY 90 days #90 05/05/24 (2,000 unit) tablet tabs gabapentin 300 mg capsule 300 mg PO BID For body aches and 05/05/24 pains 90 days #180 caps losartan 25 mg tablet 25 mg PO DAILY For high blood 05/05/24 pressure #90 tabs Ozempic 1 mg/dose (4 mg/3 mL) 1 mg (0.75 mL) subcut QWEEK #9 mL 07/09/24 subcutaneous pen injector (semaglutide) amlodipine 10 mg tablet 10 mg PO DAILY #90 tabs 07/09/24 Toureji SoloStar U-300 Insulin 300 17 unit (0.0567 mL) subcut BEDTIME 07/13/24 unit/mL (1.5 mL) subcutaneous pen #4.5 mL (insulin glargine U-300 conc) metformin 500 mg tablet 500 mg PO BID #60 tabs 08/09/24 Allergies Allergy/AdvReac Type Severity Reaction Status Date / Time lisinopril Allergy Unknown rash Verified 08/11/24 09:21 Review of Systems 2 Review of Systems: Review of systems: General: Patient denies any fever chills recent illness or falls she is experiencing thirst Musculoskeletal: Denies back pain or body aches or other injuries HEENT: denies headache, runny nose, ear pain Respiratory: denies shortness of breath, cough Cardiovascular: no chest pain or palpitations : denies dysuria, frequency Abdomen: no nausea vomiting denies abdominal pain Extremities: no swelling, no pain Skin: no diaphoresis Yes all other systems are reviewed and are negative [facility] Past Medical History Medical History Fibromyalgia Encounter for general adult medical examination with abnormal findings Anxiety, generalized Vitamin D deficiency Back spasm Hypertension, essential Surgical History History of abdominal hysterectomy Family History Family History Father Parkinson disease Mother Osteoporosis HTN (hypertension) Maternal Grandmother Cancer of kidney Maternal Grandfather Stroke Brother No problems noted. Brother No problems noted. Brother No problems noted. Sister No problems noted. Sister No problems noted. Sister No problems noted. Son No problems noted. Son No problems noted. Daughter No problems noted. Social History Social History Housing: Apartment Alcohol intake: never Patient Tobacco Use Status: Never used Tobacco Smoked in Last 30 Days: No e-Cigarette/Vaping Use: Never Used Use of substances other than those prescribed or required for medical reasons: No Advance Directives: No Do you have a plan to hurt others: No Plan Patient : No service: No Current occupational status: employed Cognitive needs: No Hearing needs: No Vision needs: No Physical Exam ED Vital Signs: Vital Signs - 24 hr 08/11/24 09:12 08/11/24 10:24 Temperature 36.6 F L 98.1 F Pulse Rate 79 76 Respiratory Rate 16 16 Blood Pressure 135/79 125/73 Pulse Oximetry 98 98 Oxygen Delivery Method Room Air Room Air BMI result Body Mass Index 20.0 General: Well-appearing well-nourished in no signs of distress HEENT: Normocephalic atraumatic Neck: No signs of JVD, no masses no tenderness or lymphadenopathy Cardiovascular: Regular rate and rhythm Respiratory: Clear to auscultation bilaterally Abdomen: Soft nontender no masses Extremities: Normal pedal pulses no signs of edema Skin: Dry warm no rashes Back: No tenderness full ROM Course Reevaluation(s) Reevaluation #1: Patient looks well blood sugar is trending down I did explain the need for the patient to start insulin she has a plan with her doctor soon I will discharge the patient home she has no signs of DKA her labs are actually improved other than her blood sugar was little bit higher today than it was when she was here previously. Time: 10:49 Medications Administered Discontinued Medications Generic Name Dose Route Start Last Admin Trade Name Freq PRN Reason Stop Dose Admin Sodium Chloride 1,000 mls @ 999 mls/hr 08/11/24 09:45 08/11/24 09:49 Ns IV 08/11/24 10:45 999 mls/hr .Q1H1M EJ Administration Lactated Ringer's 1,000 mls @ 999 mls/hr 08/11/24 09:45 08/11/24 09:49 Lr IV 08/11/24 10:45 999 mls/hr .Q1H1M EJ Administration Insulin Human Lispro 5 unit 08/11/24 10:19 08/11/24 10:26 Insulin Lispro 100 Unit/Ml 3 Ml Vial SUBCUT 08/11/24 10:20 5 unit ONCE ONE Administration Medical Decision Making Medical Decision Making [facility] Narrative: I will give the patient 2 L flu I will check for DKA and reassess Differential Diagnosis Differential Diagnoses: The differential diagnosis associated with the presentation includes DKA medication noncompliance dehydration electrolyte abnormality Lab Data 08/11/24 09:30 08/11/24 09:30 Labs: Lab Results 08/11/24 08/11/24 08/11/24 Range/Units 09:30 09:44 09:47 WBC 5.8 (4.8-10.8) X10*3/uL RBC 4.30 (4.20-5.50) X10*6/uL Hgb 13.4 (12.0-16.0) g/dl Hct 38.7 (37.0-47.0) % MCV 90.0 (80.0-98.0) fL MCH 31.2 (27.0-33.0) pg MCHC 34.6 (31.0-35.0) g/dl RDW 11.5 (11.0-16.0) % Plt Count 350 (160-400) X10*3/uL MPV 9.1 L (9.4-12.3) fL Immature Gran % (Auto) 0.3 (0.0-0.4) % Neut % (Auto) 66.3 (45-73) % Lymph % (Auto) 23.8 (20-40) % [place] % (Auto) 8.6 (2-11) % Eos % (Auto) 0.7 (0-4) % Baso % (Auto) 0.3 (0-2) % Lymph # (Auto) 1.4 (1.2-4.9) X10*3/uL [place] # (Auto) 0.5 (0.1-1.2) X10*3/uL Eos # (Auto) 0.0 (0.0-0.4) X10*3/uL Baso # (Auto) 0.0 (0.0-0.2) X10*3/uL Abs Immat Gran (auto) 0.02 (0.00-0.03) X10*3/uL Absolute Neuts (auto) 3.9 (2.0-8.3) x10*3/uL Absolute Nucleated RBC 0.000 (0.0-0.012) X10*3/uL Nucleated RBC % (auto) 0.0 (0.0-0.2) /100WBC VBG pH (7.32-7.43) VBG pCO2 mmHg VBG pO2 mmHg VBG HCO3 (22-26) mmol/L VBG O2 Saturation % VBG Base Excess mmol/L Sodium 134 L (135-145) mmol/L Potassium 4.6 (3.3-5.1) mmol/L Chloride 103 (96-108) mmol/L Carbon Dioxide 22 (22-29) mmol/L Anion Gap 14 (12-20) BUN 17 H (9-16) mg/dL Creatinine 0.98 (0.5-1.4) mg/dL Estim Creat Clear Calc 47.9 Estimated GFR 58 POC Glucose 450 H* (60-115) mg/dL Random Glucose 503 H* (60-115) mg/dL Calcium 8.9 D (8.4-10.2) mg/dL Total Bilirubin 0.5 (0.0-1.0) mg/dL Direct Bilirubin 0.2 (0.0-0.5) mg/dL AST 18 (5-31) U/L ALT 26 (0-31) U/L Alkaline Phosphatase 94 (39-117) U/L Total Protein 7.0 (6.5-8.0) g/dL Albumin 4.1 (3.5-5.0) g/dL Lipase 31 (8-78) U/L Beta-Hydroxybutyrate 0.23 (0.02-0.27) mmol/L Urine Color Urine Appearance Urine pH (5.0-9.0) Ur Specific [place] (1.005-1.025) Urine Protein (Neg-Trace) mg/dL Urine Glucose (UA) (Negative) mg/dL Urine Ketones (Negative) mg/dL Urine Blood (Negative) Urine Nitrite (Negative) Ur Leukocyte Esterase (Negative) 08/11/24 08/11/24 Range/Units 10:01 10:20 WBC (4.8-10.8) X10*3/uL RBC (4.20-5.50) X10*6/uL Hgb (12.0-16.0) g/dl Hct (37.0-47.0) % MCV (80.0-98.0) fL MCH (27.0-33.0) pg MCHC (31.0-35.0) g/dl RDW (11.0-16.0) % Plt Count (160-400) X10*3/uL MPV (9.4-12.3) fL Immature Gran % (Auto) (0.0-0.4) % Neut % (Auto) (45-73) % Lymph % (Auto) (20-40) % [place] % (Auto) (2-11) % Eos % (Auto) (0-4) % Baso % (Auto) (0-2) % Lymph # (Auto) (1.2-4.9) X10*3/uL [place] # (Auto) (0.1-1.2) X10*3/uL Eos # (Auto) (0.0-0.4) X10*3/uL Baso # (Auto) (0.0-0.2) X10*3/uL Abs Immat Gran (auto) (0.00-0.03) X10*3/uL Absolute Neuts (auto) (2.0-8.3) x10*3/uL Absolute Nucleated RBC (0.0-0.012) X10*3/uL Nucleated RBC % (auto) (0.0-0.2) /100WBC VBG pH 7.35 (7.32-7.43) VBG pCO2 41 mmHg VBG pO2 38 mmHg VBG HCO3 23 (22-26) mmol/L VBG O2 Saturation 58.0 % VBG Base Excess -1.7 mmol/L Sodium (135-145) mmol/L Potassium (3.3-5.1) mmol/L Chloride (96-108) mmol/L Carbon Dioxide (22-29) mmol/L Anion Gap (12-20) BUN (9-16) mg/dL Creatinine (0.5-1.4) mg/dL Estim Creat Clear Calc Estimated GFR POC Glucose (60-115) mg/dL Random Glucose (60-115) mg/dL Calcium (8.4-10.2) mg/dL Total Bilirubin (0.0-1.0) mg/dL Direct Bilirubin (0.0-0.5) mg/dL AST (5-31) U/L ALT (0-31) U/L Alkaline Phosphatase (39-117) U/L Total Protein (6.5-8.0) g/dL Albumin (3.5-5.0) g/dL Lipase (8-78) U/L Beta-Hydroxybutyrate (0.02-0.27) mmol/L Urine Color Yellow Urine Appearance Clear Urine pH 6.0 (5.0-9.0) Ur Specific [place] 1.025 (1.005-1.025) Urine Protein Negative (Neg-Trace) mg/dL Urine Glucose (UA) >=1000 H (Negative) mg/dL Urine Ketones Negative (Negative) mg/dL Urine Blood Negative (Negative) Urine Nitrite Positive H (Negative) Ur Leukocyte Esterase Moderate (2+) H (Negative) Discharge Plan Discharge Clinical Impression: Type 2 diabetes mellitus, Diabetes mellitus with hyperglycemia, Noncompliance with medication regimen Patient Disposition: Home, Self-Care Instructions: Diabetic Hyperglycemia (ED), How to Give an Insulin Injection (ED) Additional Instructions: You were seen today for elevated blood sugar. You have appointment to follow up with her doctor if you have any other concerns please return to emergency department. Prescriptions: No Action aspirin [Adult Low Dose Aspirin] 81 mg tablet,delayed release (DR/EC) 81 mg PO DAILY Qty: 90 3RF escitalopram oxalate 10 mg tablet 10 mg PO DAILY 90 Days Qty: 90 1RF atorvastatin 40 mg tablet 40 mg PO BEDTIME Qty: 90 1RF ergocalciferol (vitamin D2) 50 mcg (2,000 unit) tablet 2,000 unit PO DAILY 90 Days Qty: 90 1RF gabapentin 300 mg capsule 300 mg PO BID 90 Days Qty: 180 1RF losartan 25 mg tablet 25 mg PO DAILY Qty: 90 1RF Ozempic 1 mg/dose (4 mg/3 mL) pen injector 1 mg subcut QWEEK Qty: 9 0RF amlodipine 10 mg tablet 10 mg PO DAILY Qty: 90 0RF insulin glargine U-300 conc [Toujeo SoloStar U-300 Insulin] 300 unit/mL (1.5 mL) insulin pen 17 unit subcut BEDTIME Qty: 4.5 0RF metformin 500 mg tablet 500 mg PO BID Qty: 60 3RF (DME) strips one touch Verio See Rx Instructions .Route .MEDSUPPLY Qty: 100 1RF Rx Instructions: TID lidocaine [Lidoderm] 5 % adhesive patch,medicated 1 patch topical DAILY Qty: 30 0RF Rx Instructions: leave on most painful area for up to 12 hrs (DME) Blood pressure monitor Medium See Rx Instructions .Route .MEDSUPPLY Qty: 1 0RF Rx Instructions: As directed (DME) Updraft machine See Rx Instructions .Route .MEDSUPPLY Qty: 1 0RF Rx Instructions: As directed albuterol sulfate 0.63 mg/3 mL solution for nebulization 0.63 mg inhalation QID PRN (Reason: shortness of breath or wheezing) Qty: 75 0RF Print Language: Malay
[2024-08-11 09:36] LABS: MANUAL DIFF FLAG NO
[2024-08-11 09:37] LABS: Basophils Percent Auto 0.3 % (0-2); Eosinophils Percent Auto 0.7 % (0-4); Hematocrit 38.7 % (37.0-47.0); Hemoglobin 13.4 g/dl (12.0-16.0); Imm Gran Abs Auto 0.02 X10*3/uL (0.00-0.03); Imm Gran Pct Auto 0.3 % (0.0-0.4); Lymphocytes Absolute Auto 1.4 X10*3/uL (1.2-4.9); Lymphocytes Percent Auto 23.8 % (20-40); Mean Corpuscular HGB Conc 34.6 g/dl (31.0-35.0); Mean Corpuscular Hemoglobin 31.2 pg (27.0-33.0); Mean Platelet Volume 9.1 fL (9.4-12.3); Monocytes Absolute Auto 0.5 X10*3/uL (0.1-1.2); Monocytes Percent Auto 8.6 % (2-11); Neutrophils Absolute Auto 3.9 x10*3/uL (2.0-8.3); Neutrophils Percent Auto 66.3 % (45-73); Platelet Count 350 X10*3/uL (160-400); Red Cell Distribution Width 11.5 % (11.0-16.0); White Blood Count 5.8 X10*3/uL (4.8-10.8)
[2024-08-11 09:48] LABS: Glucose, Whole Blood 450 mg/dL (60-115)
[2024-08-11] MEDS: 0.9 % Sodium Chloride 1,000 ML 999 ML IV (09:49)
[2024-08-11] MEDS: Lactated Ringers 1,000 ML 999 ML IV (09:49)
--- NOTE | 2024-08-11 09:52 | PC.NURSE ---
18gIV placed in the right forearm - labs obtained/sent to lab. repeat POC obtained by tech displaying 450mg/dL. MD bedside/aware. IVF infusing per provider order. will reassess POC shortly. no sob/wob noted. respirations even/unlabored. plan of care ongoing. call drew placed within reach.
[2024-08-11 09:59] LABS: Anion Gap 14 (12-20); Blood Urea Nitrogen 17 mg/dL (9-16); Calcium 8.9 mg/dL (8.4-10.2); Carbon Dioxide 22 mmol/L (22-29); Chloride 103 mmol/L (96-108); Creatinine Clr Calc Pharmacy 47.9; Estimated Glomerular Filt Rate 58; Glucose Random 503 mg/dL (60-115); Potassium 4.6 mmol/L (3.3-5.1); Sodium 134 mmol/L (135-145)
[2024-08-11 10:07] LABS: VBG Base Excess -1.7 mmol/L; VBG HCO3 23 mmol/L (22-26); VBG pCO2 41 mmHg; VBG pH 7.35 (7.32-7.43); VBG pO2 38 mmHg
[2024-08-11 10:09] LABS: Venous Blood Gas Refer to POC result
[2024-08-11 10:24] VITALS: BP 125/73; PULSE 76; RESP 16; TEMP 36.7; O2SAT 98
[2024-08-11 10:25] LABS: Beta-Hydroxybutyrate 0.23 mmol/L (0.02-0.27)
[2024-08-11 10:26] LABS: Alanine Aminotransferase 26 U/L (0-31); Albumin Level 4.1 g/dL (3.5-5.0); Alkaline Phosphatase 94 U/L (39-117); Aspartate Amino Transferase 18 U/L (5-31); Bilirubin Direct 0.2 mg/dL (0.0-0.5); Bilirubin Total 0.5 mg/dL (0.0-1.0); Lipase 31 U/L (8-78)
[2024-08-11] MEDS: Insulin Lispro 100 UNIT/ML 3 ML VIAL SUBCUT (10:26)
--- NOTE | 2024-08-11 10:28 | PC.NURSE ---
vss and up to date. nsr on the maintenance service dispatcher. UA obtained/sent to lab. IVF continues to infuse at this time. insulin administered per provider order. effectiveness pending. will reassess POC s/p IVF infusion. respirations remain even/unlabored. plan of care ongoing.
[2024-08-11 10:44] LABS: Appearance Urine Clear; Color Urine Yellow; Glucose Urine UA >=1000 mg/dL (Negative); Leukocyte Esterase Urine Moderate (2+) (Negative); Nitrite Urine Positive (Negative); Specific Gravity - Urine 1.025 (1.005-1.025); UMIC TRIGGER UACC YES; Urine Blood Negative (Negative); Urine Ketones Negative (Negative); Urine Protein Negative (Neg-Trace)
--- NOTE | 2024-08-11 10:50 | PC.NURSE ---
repeat POC s/p insulin/IVF = 344mg/dL. Dr. Kim notified/aware.
[2024-08-11 10:51] LABS: Bacteria Urine 4+ (None Seen); Hyaline Casts Urine 0-2 /LPF (0-2); RBC Urine 0-2 /HPF (0-2); Squamous Epithelial Cell Urine 0-2 /HPF (0-2); UACC Culture Trigger YES; WBC Urine 21-50 /HPF (0-5)
[2024-08-11 10:52] LABS: Glucose, Whole Blood 344 mg/dL (60-115)
[2024-08-11 10:58] VITALS: BP 125/73; PULSE 76; RESP 16; TEMP 36.7; O2SAT 98
== END 2024-08-11 11:28 | disposition home or self-care (01) ==
PROVIDERS: Emergency Provider Student in an Organized Health Care Education/Training Program; PCP Internal Medicine
DX: E11.65 Type 2 diabetes mellitus with hyperglycemia (principal); Z91.141 Patient's other noncompliance with medication regimen due to financial hardship; I10 Essential (primary) hypertension; E78.5 Hyperlipidemia, unspecified; Z79.82 Long term (current) use of aspirin; Z79.02 Long term (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 of antithrombotics/antiplatelets; Z79.899 Other long term (current) drug therapy
CPT/HCPCS: 36415; 80048; 80076; 81001; 82010; 82803; 82947; 83690; 85025; 87086; 87088; 87186; 96360; 99284; J7120

== ENCOUNTER 2024-08-17 09:19 | Outpatient (AMB) | payer OTHER, SELFPAY ==
[2024-08-17 09:21] VITALS: BP 110/68; PULSE 65; O2SAT 98; BMI 20.2
--- NOTE | 2024-08-17 09:21 | A.OFFPC_ITS ---
Vital Signs 08/17/24 09:21 Height 5 ft 3 in Weight 114 lb BMI 20.2 BP 110/68 Blood Pressure Location Lt brachial Position Sitting Pulse 65 Pulse Source Pulse Oximeter Pulse Oximetry (%) 98 Oxygen Delivery Method Room Air Intake Visit Reasons: 9 Month F/U Allergies lisinopril Allergy (Unknown, Verified 08/17/24 09:26) rash Medication List - Last Reconciled 08/17/24 by Gila Bragg MD albuterol sulfate 0.63 mg (3 mL) inhalation QID PRN alcohol swabs (Alcohol Pads) 1 pad topical .three times per day amlodipine 10 mg PO DAILY aspirin (Adult Low Dose Aspirin) 81 mg PO DAILY atorvastatin 40 mg PO BEDTIME [Blood pressure monitor As directed] blood-glucose meter ([employer] Verio Flex Meter) As directed ergocalciferol (vitamin D2) 2,000 units PO DAILY 90 days escitalopram oxalate 10 mg PO DAILY 90 days gabapentin 300 mg PO BID 90 days insulin glargine 17 units (0.17 mL) subcut QPM 90 days lancets (Asetek Delica Plus Lancet) As directed lidocaine 5% (Lidoderm) 1 patch topical DAILY losartan 25 mg PO DAILY metformin 500 mg PO BID Ozempic (semaglutide) 1 mg (0.75 mL) subcut QWEEK NS [strips one touch Verio TID] [Updraft machine As directed] Tobacco use date assessed: 08/17/24 Dental Screening Dental Screen Date: 08/17/24 Did you have a dental visit in the last 12 months?: Yes Did you have a dental problem in the last 6 months where you did not have access to dental care?: No Was dental information given to patient?: Patient has dentist HPI 9 Month F/U HPI Details Patient was in [facility] Emergency room on 08/11/2024 64-year-old female insulin-dependent laura duncan who stopped taking her insulin due to cost . She has past medical history significant for hypertension, hyperlipidemia , asthma Patient was on Toujeo, she lost her insurance in between and stopped taking medication We will call the pharmacy to make sure she has gotten her insulin Also will sent Becky glucometer She will have labs done today Patient will return in 7-10 days for follow-up again Her other medications are Escitalopram for anxiety Gabapentin 300 b.i.d. for fibromyalgia pain Atorvastatin 40 mg for lipid control amlodipine 10 mg for blood pressure control along with losartan 25 mg She is supposed to be on 17 units of insulin glargine and metformin 500 mg b.i.d., patient was on semaglutide 1 mg injection per week as well I have sent all her medications again [facility] Medical History Fibromyalgia Encounter for general adult medical examination with abnormal findings Anxiety, generalized Vitamin D deficiency Back spasm Hypertension, essential Surgical History History of abdominal hysterectomy Family History Father Parkinson disease Mother Osteoporosis HTN (hypertension) Maternal Grandmother Cancer of kidney Maternal Grandfather Stroke Brother No problems noted. Brother No problems noted. Brother No problems noted. Sister No problems noted. Sister No problems noted. Sister No problems noted. Son No problems noted. Son No problems noted. Daughter No problems noted. Social History Housing: Apartment Alcohol intake: never Patient Tobacco Use Status: Never used Tobacco e-Cigarette/Vaping Use: Never Used service: No Current occupational status: employed Cognitive needs: No Hearing needs: No Vision needs: No Questionnaire PHQ-9 Over the last 2 weeks, how often have you been bothered by any of the following problems? 1. Little interest or pleasure in doing things: not at all 2. Feeling down, depressed, or hopeless: not at all 3. Trouble falling or staying asleep, or sleeping too much: not at all 4. Feeling tired or having little energy: several days 5. Poor appetite or overeating: not at all 6. Feeling bad about yourself - or that you are a failure or have let yourself or your family down: not at all 7. Trouble concentrating on things, such as reading the newspaper or watching television: not at all 8. Moving or speaking so slowly that other people could have noticed. Or the opposite - being so fidgety or restless that you have been moving around a lot more than usual: not at all 9. Thoughts that you would be better off or of hurting yourself in some way: not at all Total score: 1 Depression Screening Interpretation: Negative Depression Screening Done: Yes 93757 - PHQ-9 Billing: Yes Source: Developed by Drs. Durate Coleman, Megan Wilson, George Hernandez and colleagues, with an educational chris from [employer]. Thrive Questionnaire Date Thrive assessed: 08/17/24 I am a: Patient What is your living situation today?: I have a steady place to live Within the past 12 months, did the food you bought not last and you didn't have the money to get more?: Sometimes True Within the past 12 months, did you worry whether your food would run out before you got money to buy more?: Often true Do you have trouble paying for medicines?: Yes Do you have trouble getting transportation to medical appointments?: No Do you have trouble paying your heating and electricity bill?: No Do you have trouble taking care of your child, family member or friend?: No Do you have trouble with day-to-day activities such as bathing, preparing meals, shopping, managing finances, etc.?: No Are you currently unemployed and looking for a job?: No Are you interested in more education?: I choose not to answer this question Please select the resources that you would like help with: Paying for medicine and Job search/training Currently or been in a relationship where the following occur: No concerns reported THRIVE Score: 2 AUDIT C Alcohol Use Questionnaire (AUDIT-C) 1. How often do you have a drink containing alcohol?: Monthly or less 2. How many drinks containing alcohol do you have on a typical day when you are drinking?: 1 or 2 3. How often do you have six or more drinks on one occasion?: Never Total Score: 1 Score Reviewed/Action Taken: Yes MINDY-7 AMB Questionnaire MINDY-7 Date MINDY - 7 assessed: 08/17/24 Feeling nervous, anxious, or on edge: 0 = Not at all Not being able to stop or control worryin = Not at all Worrying too much about different things: 0 = Not at all Trouble relaxin = Not at all Being so restless that it is hard to sit still: 0 = Not at all Becoming easily annoyed or irritable: 0 = Not at all Feeling afraid as if something awful might happen: 0 = Not at all Total MINDY-7 score (0-4 normal; 5-9 mild; 10-14 moderate; 15-21 severe): 0 Source: Developed by Drs. Duarte Coleman, Megan Wilson, George Hernandez and colleagues, with an educational chris from [employer]. MINDY-7 Assessment Billing MINDY-7 Assessment Tool: MINDY-7 Assessment 44779 Review of Systems Const Denies chills and Denies fever(s) ENT Denies epistaxis and Denies nasal discharge Card Denies chest pain Resp Denies chest congestion, Denies cough and Denies hemoptysis GI Denies diarrhea and Denies nausea Skin/Breast Denies rash Neuro Reports no additional complaints Psych Reports no additional complaints Endo Reports no additional complaints Physical exam (Primary Care) Vital Signs: Last Vital Signs Pulse 65 08/17/24 09:21 BP 110/68 08/17/24 09:21 Pulse Ox 98 08/17/24 09:21 Oxygen Delivery Method Room Air 08/17/24 09:21 BMI result Body Mass Index 20.2 Tobacco/Smoking Status: Tobacco use Status Tobacco use date assessed 08/17/24 08/17/24 09:26 Patient Tobacco Use Status Never used Tobacco 08/17/24 09:21 e-Cigarette/Vaping Use Never Used 08/17/24 09:21 PHQ-9: PHQ-9 Score PHQ-9: Total score 1 08/17/24 09:40 Depression Screening Interpretation: Negative Thrive Assessment: Date of Thrive Assessment Date Thrive assessed 08/17/24 08/17/24 09:26 Currently or been in a relationship where the following occur: No concerns reported Const General: cooperative, comfortable and no acute distress Orientation/consciousness: patient oriented x3 HENMT Head: Yes normocephalic Eyes General: appearance normal, both eyes and all related structures Neck Neck: Yes supple Resp Effort & Inspection: normal respiratory effort, no cough and no stridor Cardio Rhythm: regular rhythm Heart sounds: S1 normal heart sound present and S2 normal heart sound present Skin General skin exam: turgor normal Neuro General: patient oriented x3, tone normal and moves all extremities Extrem Right lower extremity: no edema Left lower extremity: no edema Coding Level of Care Code Est Pt Level 4 (30321) Complex EM visit Add On G2211 Diagnoses Type 2 diabetes mellitus with diabetic microalbuminuria, with long-term current use of insulin E11.29; R80.9; Z79.4 Diabetes mellitus complication detail: with diabetic microalbuminuria Diabetes mellitus complication status: with kidney complications Diabetes mellitus rn long term care insulin use: with rn long term care use Hypertension, essential I10 Fibromyalgia M79.7 Elevated blood sugar R73.9 Lipid disorder E78.9 Microalbuminuria due to type 2 diabetes mellitus E11.29; R80.9 Vitamin D deficiency E55.9 Anxiety, generalized F41.1 terminal makeup operator (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 of insulin Z79.4 Recurrent major depressive disorder, in partial remission F33.41 Active/Remission status: in partial remission Additional Codes MINDY-7 Assessment Billing - MINDY-7 Assessment Tool: MINDY-7 Assessment [id number] ([id number]) Assessment & Plan Assessment & Plan (1) Type 2 diabetes mellitus: Code(s): E11.9 - Type 2 diabetes mellitus without complications Category: Medical Qualifiers: Diabetes mellitus complication detail: with diabetic microalbuminuria Diabetes mellitus complication status: with kidney complications Diabetes mellitus assisted insulin use: with rn long term care use Qualified Code(s): E11.29 - Type 2 diabetes mellitus with other diabetic kidney complication; R80.9 - Proteinuria, unspecified; Z79.4 - terminal makeup operator (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 of insulin (2) Hypertension, essential: Code(s): I10 - Essential (primary) hypertension Category: Medical (3) Fibromyalgia: Code(s): M79.7 - Fibromyalgia Category: Medical (4) Elevated blood sugar: Code(s): R73.9 - Hyperglycemia, unspecified Category: Medical (5) Lipid disorder: Code(s): E78.9 - Disorder of lipoprotein metabolism, unspecified Category: Medical (6) Microalbuminuria due to type 2 diabetes mellitus: Code(s): E11.29 - Type 2 diabetes mellitus with other diabetic kidney complication; R80.9 - Proteinuria, unspecified Category: Medical (7) Vitamin D deficiency: Code(s): E55.9 - Vitamin D deficiency, unspecified Category: Medical (8) Anxiety, generalized: Code(s): F41.1 - Generalized anxiety disorder Category: Medical (9) terminal makeup operator (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 of insulin: Code(s): Z79.4 - jail (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 of insulin Category: Medical (10) Major depression, recurrent: Code(s): F33.9 - Major depressive disorder, recurrent, unspecified Category: Medical Qualifiers: Active/Remission status: in partial remission Qualified Code(s): F33.41 - Major depressive disorder, recurrent, in partial remission Plan Patient was in [facility] Emergency room on 08/11/2024 64-year-old female insulin-dependent diabetic who stopped taking her insulin due to cost . She has past medical history significant for hypertension, hyperlipidemia , asthma Patient was on Toujeo, she lost her insurance in between and stopped taking medication We will call the pharmacy to make sure she has gotten her insulin Also will sent Becky glucometer She will have labs done today Patient will return in 7-10 days for follow-up again Her other medications are Escitalopram for anxiety Gabapentin 300 b.i.d. for fibromyalgia pain Atorvastatin 40 mg for lipid control amlodipine 10 mg for blood pressure control along with losartan 25 mg She is supposed to be on 17 units of insulin glargine and metformin 500 mg b.i.d., patient was on semaglutide 1 mg injection per week as well I have sent all her medications again Orders: Orders Complete Blood Count Auto Diff Today E11.29 - Type 2 diabetes mellitus with other diabetic kidney complication, E11.9 - Type 2 diabetes mellitus without complications, E78.9 - Disorder of lipoprotein metabolism, unspecified, I10 - Essential (primary) hypertension, M79.7 - Fibromyalgia, R73.9 - Hyperglycemia, unspecified, R80.9 - Proteinuria, unspecified Comprehensive Met. Panel Today E11.29 - Type 2 diabetes mellitus with other diabetic kidney complication, E11.9 - Type 2 diabetes mellitus without complications, E78.9 - Disorder of lipoprotein metabolism, unspecified, I10 - Essential (primary) hypertension, M79.7 - Fibromyalgia, R73.9 - Hyperglycemia, unspecified, R80.9 - Proteinuria, unspecified LDL Cholesterol Direct Today E11.29 - Type 2 diabetes mellitus with other diabetic kidney complication, E11.9 - Type 2 diabetes mellitus without complications, E78.9 - Disorder of lipoprotein metabolism, unspecified, I10 - Essential (primary) hypertension, M79.7 - Fibromyalgia, R73.9 - Hyperglycemia, unspecified, R80.9 - Proteinuria, unspecified Hemoglobin A1c Today E11.29 - Type 2 diabetes mellitus with other diabetic kidney complication, E11.9 - Type 2 diabetes mellitus without complications, E78.9 - Disorder of lipoprotein metabolism, unspecified, I10 - Essential (prima ry) hypertension, M79.7 - Fibromyalgia, R73.9 - Hyperglycemia, unspecified, R80.9 - Proteinuria, unspecified TSH reflex Free T4 Today E11.29 - Type 2 diabetes mellitus with other diabetic kidney complication, E11.9 - Type 2 diabetes mellitus without complications, E78.9 - Disorder of lipoprotein metabolism, unspecified, I10 - Essential (primary) hypertension, M79.7 - Fibromyalgia, R73.9 - Hyperglycemia, unspecified, R80.9 - Proteinuria, unspecified Medications: New blood-glucose sensor (FreeStyle Becky 3 Plus Sensor device) As directed 1 ea 0RF E11.29 - Type 2 diabetes mellitus with other diabetic kidney complication, E11.65 - Type 2 diabetes mellitus with hyperglycemia, R80.9 - Proteinuria, unspecified, Z79.4 - jail (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 of insulin blood-glucose meter,continuous (FreeStyle Becky 3 Lyman) As directed 1 ea 0RF E10.43 - Type 1 diabetes mellitus with diabetic autonomic (poly)neuropathy, E11.29 - Type 2 diabetes mellitus with other diabetic kidney complication, R80.9 - Proteinuria, unspecified, Z79.4 - terminal makeup operator (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 of insulin Refilled atorvastatin 40 mg PO BEDTIME 90 tabs 1RF For high cholesterol ergocalciferol (vitamin D2) 2,000 units PO DAILY 90 tabs 1RF 90 days E55.9 - Vitamin D deficiency, unspecified insulin glargine 17 units (0.17 mL) subcut QPM 15.3 mL 0RF 90 days losartan 25 mg PO DAILY 90 tabs 1RF For high blood pressure Ozempic (semaglutide) 1 mg (0.75 mL) subcut QWEEK 9 mL 0RF NS amlodipine 10 mg PO DAILY 90 tabs 0RF I10 - Essential (primary) hypertension escitalopram oxalate 10 mg PO DAILY 90 tabs 1RF For depression 90 days F41.1 - Generalized anxiety disorder gabapentin 300 mg PO BID 180 caps 1RF For body aches and pains 90 days M79.7 - Fibromyalgia metformin 500 mg PO BID 60 tabs 3RF
== END 2024-08-17 09:46 | disposition home or self-care (01) ==
PROVIDERS: PCP Internal Medicine; Visit Provider Internal Medicine
DX: E11.29 Type 2 diabetes mellitus with other diabetic kidney complication (principal); Z79.4 Long term (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 of insulin; F33.41 Major depressive disorder, recurrent, in partial remission; R80.9 Proteinuria, unspecified; I10 Essential (primary) hypertension; M79.7 Fibromyalgia; R73.9 Hyperglycemia, unspecified; E78.9 Disorder of lipoprotein metabolism, unspecified; E55.9 Vitamin D deficiency, unspecified; F41.1 Generalized anxiety disorder

== ENCOUNTER → 2024-08-17 09:19 | Outpatient (BNVA) | payer OTHER, SELFPAY | PROVIDERS: PCP Internal Medicine; Visit Provider Internal Medicine | DX: E11.29 Type 2 diabetes mellitus with other diabetic kidney complication (principal); R80.9 Proteinuria, unspecified; I10 Essential (primary) hypertension; M79.7 Fibromyalgia; E78.9 Disorder of lipoprotein metabolism, unspecified; F41.1 Generalized anxiety disorder; F33.41 Major depressive disorder, recurrent, in partial remission; Z79.4 Long term (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 of insulin | CPT/HCPCS: 96127; 99212 ==

== ENCOUNTER 2024-08-17 09:49 | Outpatient (REF) | payer OTHER, SELFPAY ==
[2024-08-17 13:08] LABS: MANUAL DIFF FLAG NO
[2024-08-17 13:26] LABS: Basophils Percent Auto 0.8 % (0-2); Eosinophils Percent Auto 0.8 % (0-4); Hematocrit 40.6 % (37.0-47.0); Hemoglobin 13.4 g/dl (12.0-16.0); Imm Gran Abs Auto 0.02 X10*3/uL (0.00-0.03); Imm Gran Pct Auto 0.4 % (0.0-0.4); Lymphocytes Absolute Auto 1.4 X10*3/uL (1.2-4.9); Lymphocytes Percent Auto 28.3 % (20-40); Mean Corpuscular Hemoglobin 30.9 pg (27.0-33.0); Mean Corpuscular Volume 93.5 fL (80.0-98.0); Mean Platelet Volume 10.2 fL (9.4-12.3); Monocytes Absolute Auto 0.4 X10*3/uL (0.1-1.2); Monocytes Percent Auto 8.8 % (2-11); Neutrophils Percent Auto 60.9 % (45-73); Platelet Count 291 X10*3/uL (160-400); Red Blood Count 4.34 X10*6/uL (4.20-5.50); Red Cell Distribution Width 11.4 % (11.0-16.0); White Blood Count 4.9 X10*3/uL (4.8-10.8)
[2024-08-17 13:54] LABS: Alanine Aminotransferase 31 U/L (0-31); Albumin Level 4.4 g/dL (3.5-5.0); Alkaline Phosphatase 77 U/L (39-117); Anion Gap 13 (12-20); Aspartate Amino Transferase 24 U/L (5-31); Bilirubin Total 0.6 mg/dL (0.0-1.0); Blood Urea Nitrogen 17 mg/dL (9-16); Calcium 9.7 mg/dL (8.4-10.2); Carbon Dioxide 26 mmol/L (22-29); Chloride 104 mmol/L (96-108); Estimated Glomerular Filt Rate > 60; Glucose Random 230 mg/dL (60-115); Potassium 4.9 mmol/L (3.3-5.1); Sodium 138 mmol/L (135-145); Total Protein 7.6 g/dL (6.5-8.0)
[2024-08-17 14:08] LABS: Hemoglobin A1C 604.1817 umol/L; Hemoglobin A1c % > 14.0 % (<6.0); Total Hemoglobin (HGBA1C) 4568.6117 umol/L
[2024-08-18 18:04] LABS: LDL Cholesterol Direct 69 mg/dL (<100)
== END 2024-08-17 09:50 | disposition home or self-care (01) ==
LOC: HO.HMGCLDS 09:49
PROVIDERS: PCP Internal Medicine; Visit Provider Internal Medicine
DX: I10 Essential (primary) hypertension (principal); R73.9 Hyperglycemia, unspecified; M79.7 Fibromyalgia; E78.9 Disorder of lipoprotein metabolism, unspecified; E11.29 Type 2 diabetes mellitus with other diabetic kidney complication; R80.9 Proteinuria, unspecified
CPT/HCPCS: 36415; 80053; 83036; 83721; 84443; 85025

== ENCOUNTER 2024-08-25 09:09 | Outpatient (AMB) | payer OTHER, SELFPAY ==
[2024-08-25 09:23] VITALS: BP 124/70; PULSE 84; O2SAT 98; BMI 20.4
--- NOTE | 2024-08-25 09:23 | MHC.PC.OV ---
Vital Signs 08/25/24 09:23 Height 5 ft 3 in Weight 115 lb 4 oz BMI 20.4 BP 124/70 Blood Pressure Location Rt brachial Position Sitting Pulse 84 Pulse Source Pulse Oximeter Pulse Oximetry (%) 98 Oxygen Delivery Method Room Air Intake Visit Reasons: 7-10 days f/up Allergies lisinopril Allergy (Unknown, Verified 08/25/24 09:25) rash Medication List - Last Reconciled 08/25/24 by Gila Bragg MD albuterol sulfate 0.63 mg (3 mL) inhalation QID PRN alcohol swabs (Alcohol Pads) 1 pad topical .three times per day amlodipine 10 mg PO DAILY aspirin (Adult Low Dose Aspirin) 81 mg PO DAILY atorvastatin 40 mg PO BEDTIME [Blood pressure monitor As directed] blood-glucose meter (View the Spaceuch Verio Flex Meter) As directed blood-glucose meter,continuous (FreeStyle Becky 3 [place]) As directed blood-glucose sensor (FreeStyle Becky 3 Plus Sensor device) Test blood sugar 4 times a day, change sensor every 14 days ergocalciferol (vitamin D2) 2,000 units PO DAILY 90 days escitalopram oxalate 10 mg PO DAILY 90 days gabapentin 300 mg PO BID 90 days lancets (StrevusTouch Delica Plus Lancet) As directed Lantus Solostar U-100 Insulin (insulin glargine) 17 units (0.17 mL) subcut QPM 90 days NS lidocaine 5% (Lidoderm) 1 patch topical DAILY losartan 25 mg PO DAILY metformin 500 mg PO BID Ozempic (semaglutide) 1 mg (0.75 mL) subcut QWEEK NS [strips one touch Verio TID] [Updraft machine As directed] Tobacco use date assessed: 08/25/24 Dental Screening Dental Screen Date: 08/25/24 Did you have a dental visit in the last 12 months?: Yes Did you have a dental problem in the last 6 months where you did not have access to dental care?: No Was dental information given to patient?: Patient has dentist HPI 7-10 days f/up HPI Details Patient is 64-year-old female came in today for her follow-up appointment She has restarted all her medications Fasting sugars are ranging from 130s to 160 now Labs done without insulin showed hemoglobin A1c of above 9 Tells me that at night sometimes she feels as if her sugar drops as she wakes up and sweats Insurance did not approve Becky glucometer, we will try to get it approved again Continued to have pain, she has a script for gabapentin 300 mg b.i.d. But she is taking it only once at night, notify patient to start taking it 2 times a day She also suffers from fibromyalgia Labs need to be repeated again in 3 months She will return in 3 months for follow-up appointment Due for eye exam, referral placed. Blood pressure is well-controlled [facility] Medical History Fibromyalgia Encounter for general adult medical examination with abnormal findings Anxiety, generalized Vitamin D deficiency Back spasm Hypertension, essential Surgical History History of abdominal hysterectomy Family History Father Parkinson disease Mother Osteoporosis HTN (hypertension) Maternal Grandmother Cancer of kidney Maternal Grandfather Stroke Brother No problems noted. Brother No problems noted. Brother No problems noted. Sister No problems noted. Sister No problems noted. Sister No problems noted. Son No problems noted. Son No problems noted. Daughter No problems noted. Social History Housing: Apartment Alcohol intake: never Patient Tobacco Use Status: Never used Tobacco e-Cigarette/Vaping Use: Never Used service: No Current occupational status: employed Cognitive needs: No Hearing needs: No Vision needs: No Questionnaire Thrive Questionnaire Date Thrive assessed: 08/25/24 I am a: Patient What is your living situation today?: I have a steady place to live Within the past 12 months, did the food you bought not last and you didn't have the money to get more?: Sometimes True Within the past 12 months, did you worry whether your food would run out before you got money to buy more?: Often true Do you have trouble paying for medicines?: Yes Do you have trouble getting transportation to medical appointments?: No Do you have trouble paying your heating and electricity bill?: No Do you have trouble taking care of your child, family member or friend?: No Do you have trouble with day-to-day activities such as bathing, preparing meals, shopping, managing finances, etc.?: No Are you currently unemployed and looking for a job?: No Are you interested in more education?: I choose not to answer this question Please select the resources that you would like help with: None Currently or been in a relationship where the following occur: No concerns reported THRIVE Score: 2 AUDIT C Alcohol Use Questionnaire (AUDIT-C) 1. How often do you have a drink containing alcohol?: Monthly or less 2. How many drinks containing alcohol do you have on a typical day when you are drinking?: 1 or 2 3. How often do you have six or more drinks on one occasion?: Never Total Score: 1 Score Reviewed/Action Taken: Yes MINDY-7 AMB Questionnaire MINDY-7 Date MINDY - 7 assessed: 08/17/24 Source: Developed by Drs. Duarte Coleman, Megan Wilson, George Hernandez and colleagues, with an educational chris from [employer]. Review of Systems Const Denies chills and Denies fever(s) ENT Denies epistaxis and Denies nasal discharge Card Denies chest pain Resp Denies chest congestion, Denies cough and Denies hemoptysis GI Denies diarrhea and Denies nausea Skin/Breast Denies rash Neuro Reports no additional complaints Psych Reports no additional complaints Endo Reports no additional complaints Physical exam (Primary Care) Vital Signs: Last Vital Signs Pulse 84 08/25/24 09:23 BP 124/70 08/25/24 09:23 Pulse Ox 98 08/25/24 09:23 Oxygen Delivery Method Room Air 08/25/24 09:23 BMI result Body Mass Index 20.4 Tobacco/Smoking Status: Tobacco use Status Tobacco use date assessed 08/25/24 08/25/24 09:26 Patient Tobacco Use Status Never used Tobacco 08/25/24 09:26 e-Cigarette/Vaping Use Never Used 08/25/24 09:26 Thrive Assessment: Date of Thrive Assessment Date Thrive assessed 08/25/24 08/25/24 09:26 Currently or been in a relationship where the following occur: No concerns reported Const General: cooperative, comfortable and no acute distress Orientation/consciousness: patient oriented x3 HENMT Head: Yes normocephalic Eyes General: appearance normal, both eyes and all related structures Neck Neck: Yes supple Resp Effort & Inspection: normal respiratory effort, no cough and no stridor Cardio Rhythm: regular rhythm Heart sounds: S1 normal heart sound present and S2 normal heart sound present Skin General skin exam: turgor normal Neuro General: patient oriented x3, tone normal and moves all extremities Extrem Right lower extremity: no edema Left lower extremity: no edema Coding Level of Care Code Est Pt Level 4 (88026) Complex EM visit Add On G2211 Diagnoses Type 1 diabetes mellitus with diabetic autonomic neuropathy E10.43 Diabetes mellitus complication detail: with autonomic neuropathy Diabetes mellitus complication status: with neurologic complications Hypertension, essential I10 Anxiety, generalized F41.1 Fibromyalgia M79.7 assisted (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 of insulin Z79.4 Lipid disorder E78.9 Recurrent major depressive disorder, in partial remission F33.41 Active/Remission status: in partial remission Chronic pain syndrome G89.4 Microalbuminuria due to type 2 diabetes mellitus E11.29; R80.9 Moderate persistent asthma without complication J45.40 Asthma complication type: uncomplicated Assessment & Plan Assessment & Plan (1) Insulin dependent type 1 diabetes mellitus: Code(s): E10.9 - Type 1 diabetes mellitus without complications Category: Medical Qualifiers: Diabetes mellitus complication detail: with autonomic neuropathy Diabetes mellitus complication status: with neurologic complications Qualified Code(s): E10.43 - Type 1 diabetes mellitus with diabetic autonomic (poly)neuropathy (2) Hypertension, essential: Code(s): I10 - Essential (primary) hypertension Category: Medical (3) Anxiety, generalized: Code(s): F41.1 - Generalized anxiety disorder Category: Medical (4) Fibromyalgia: Code(s): M79.7 - Fibromyalgia Category: Medical (5) assisted (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 of insulin: Code(s): Z79.4 - assisted (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 of insulin Category: Medical (6) Lipid disorder: Code(s): E78.9 - Disorder of lipoprotein metabolism, unspecified Category: Medical (7) Major depression, recurrent: Code(s): F33.9 - Major depressive disorder, recurrent, unspecified Category: Medical Qualifiers: Active/Remission status: in partial remission Qualified Code(s): F33.41 - Major depressive disorder, recurrent, in partial remission (8) Chronic pain syndrome: Code(s): G89.4 - Chronic pain syndrome Category: Medical (9) Microalbuminuria due to type 2 diabetes mellitus: Code(s): E11.29 - Type 2 diabetes mellitus with other diabetic kidney complication; R80.9 - Proteinuria, unspecified Category: Medical (10) Asthma, moderate persistent: Code(s): J45.40 - Moderate persistent asthma, uncomplicated Category: Medical Qualifiers: Asthma complication type: uncomplicated Qualified Code(s): J45.40 - Moderate persistent asthma, uncomplicated Plan Patient is 64-year-old female came in today for her follow-up appointment She has restarted all her medications Fasting sugars are ranging from 130s to 160 now Labs done without insulin showed hemoglobin A1c of above 9 Tells me that at night sometimes she feels as if her sugar drops as she wakes up and sweats Insurance did not approve Becky glucometer, we will try to get it approved again Continued to have pain, she has a script for gabapentin 300 mg b.i.d. But she is taking it only once at night, notify patient to start taking it 2 times a day She also suffers from fibromyalgia Labs need to be repeated again in 3 months She will return in 3 months for follow-up appointment Due for eye exam, referral placed. 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 Complete Blood Count Auto Diff 3 Months E10.43 - Type 1 diabetes mellitus with diabetic autonomic (poly)neuropathy, E11.29 - Type 2 diabetes mellitus with other diabetic kidney complication, E78.9 - Disorder of lipoprotein metabolism, unspecified, F33.41 - Major depressive disorder, recurrent, in partial remission, F41.1 - Generalized anxiety disorder, G89.4 - Chronic pain syndrome, I10 - Essential (primary) hypertension, J45.40 - Moderate persistent asthma, uncomplicated, M79.7 - Fibromyalgia, R80.9 - Proteinuria, unspecified, 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 Panel Fast 3 Months E10.43 - Type 1 diabetes mellitus with diabetic autonomic (poly)neuropathy, E11.29 - Type 2 diabetes mellitus with other diabetic kidney complication, E78.9 - Disorder of lipoprotein metabolism, unspecified, F33.41 - Major depressive disorder, recurrent, in partial remission, F41.1 - Generalized anxiety disorder, G89.4 - Chronic pain syndrome, I10 - Essential (primary) hypertension, J45.40 - Moderate persistent asthma, uncomplicated, M79.7 - Fibromyalgia, R80.9 - Proteinuria, unspecified, Z79.4 - assisted (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 of insulin Referrals Ophthalmology Referral E10.43 - Type 1 diabetes mellitus with diabetic autonomic (poly)neuropathy, H53.8 - Other visual disturbances
== END 2024-08-25 09:38 | disposition home or self-care (01) ==
PROVIDERS: PCP Internal Medicine; Visit Provider Internal Medicine
DX: E11.29 Type 2 diabetes mellitus with other diabetic kidney complication (principal); Z79.4 Long term (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 of insulin; F33.41 Major depressive disorder, recurrent, in partial remission; I10 Essential (primary) hypertension; F41.1 Generalized anxiety disorder; M79.7 Fibromyalgia; E78.9 Disorder of lipoprotein metabolism, unspecified; G89.4 Chronic pain syndrome; R80.9 Proteinuria, unspecified; J45.40 Moderate persistent asthma, uncomplicated

== ENCOUNTER → 2024-08-25 09:09 | Outpatient (BNVA) | payer OTHER, SELFPAY | PROVIDERS: PCP Internal Medicine; Visit Provider Internal Medicine | DX: E10.43 Type 1 diabetes mellitus with diabetic autonomic (poly)neuropathy (principal); I10 Essential (primary) hypertension; F41.1 Generalized anxiety disorder; M79.7 Fibromyalgia; E78.9 Disorder of lipoprotein metabolism, unspecified; F33.41 Major depressive disorder, recurrent, in partial remission; E10.29 Type 1 diabetes mellitus with other diabetic kidney complication; R80.9 Proteinuria, unspecified; J45.40 Moderate persistent asthma, uncomplicated; Z79.4 Long term (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 of insulin | CPT/HCPCS: 99212 ==

== ENCOUNTER 2024-09-03 13:33 | Outpatient (AMB) | payer OTHER, SELFPAY ==
--- NOTE | 2024-09-03 13:37 | MHC.OFFVIS ---
Vital Signs 09/03/24 13:45 Height 5 ft 3 in Weight 116 lb 13.52 oz BMI 20.7 BP 122/72 Blood Pressure Location Rt brachial Position Sitting Pulse 75 Pulse Source Pulse Oximeter Intake Visit Reasons: T1DM/lvm Intake Note: NEW Patient presents today to establish treatment for Type 1 Diabetes Mellitus: Last Diabetic eye exam was on: OVER DUE, has an appt 09/14/2024 Last Podiatry exam was on: Does not see a [employer] Most recent HbA1c: >14.0%, 08/17/2024 Random Glucose- 88 mg/dL, Today Colored Liquid Plastic Applier Required: Yes Colored Liquid Plastic Applier Language: [employer] Architect Name: Dat Isaac, LOWELL/NAKUL Herediai Information Interpreted: clinical only Accompanied by: Self / Same As Patient Allergies lisinopril Allergy (Unknown, Verified 09/03/24 13:48) rash HPI Comments Details: This is a 64-year-old female with a past medical history of asthma, chronic pain, depression and anxiety, hypertension, fibromyalgia and hyperlipidemia presenting for an initial consult for diabetic management. The patient says she was diagnosed with diabetes about 4 years ago. She is unsure if she is a type 1 or type 2 diabetic. Both are listed on her problem list, and she has been prescribed insulin, GLP 1 and metformin historically. She denies family history of type 1 and type 2 diabetes. She has not seen endocrinology in the past. She did not bring her glucometer today. She is checking her blood sugars 3 times a day. In the morning patient reports blood sugars have been around 170 during the past week. In the afternoon they are around 130-140, and in the evening they are between 170 and 200. She was prescribed Becky 3, but it needs a prior authorization. Patient was recently in the emergency department x3 for hyperglycemia. States she had an insurance lap for 3-4 months, and she did not have her medications, and she stopped following a diabetic diet. Prior to the insurance lapse she was on insulin and Ozempic. She endorses 30 lb weight loss over the past 2 months. Hemoglobin a1c over 14% 08/17/2024. In November this year her A1c was 6.9%. Current medication regimen: Lantus 17 units nightly. She restarted 2 weeks ago. She notes that she is very needle phobic. Compliance issues: Ozempic is on her med list, but she did not receive it from the pharmacy. She is not taking metformin. Diet: Breakfast-blueberry yogurt, ensure for diabetes, 2 boiled eggs Lunch-salad, vegetables, chicken soup with vegetables, corn Dinner-kiwi, green apple, almonds Drinks vitamin water zero sugar Snacks/desserts: None No alcohol or tobacco user. She does not have juice or soda. Hypoglycemia symptoms: none Hyperglycemia symptoms: polyuria, polydipsia, off balance, blurry vision Eye exam: scheduled Microvascular complications: neuropathy, nephropathy (microalbuminuria) Macrovascular complications: No known Hypertension: treated with amlodipine and lisinopril. Hyperlipidemia: treated with atorvastatin. LDL at goal <100. ROS: Constitutional: No fevers, chills or night sweats. +weight loss per HPI. Eyes: No double vision or loss of vision or current blurry vision. Respiratory: No shortness of breath Cardiovascular: No chest pain Gastrointestinal: No anorexia, nausea, vomiting or diarrhea. No abdominal pain Neurologic: No headache, dizziness, syncope Skin: No open wounds. Endocrine: see HPI Physical exam: Constitutional: Alert, in no distress. Eyes: Pupils are equal, round and reactive to light. Extraocular muscles intact. Neck: Supple, Full range of motion. No lymphadenopathy. No palpable thyroid masses. Respiratory: Clear to auscultation. Cardiovascular: S1 S2 regular. No murmurs. Right foot: Warm and well perfused. No clubbing, cyanosis or edema. DP pulse 3+. Intact vibratory sensation. Intact sensation to monofilament. Left foot: Warm and well perfused. No clubbing, cyanosis or edema. DP pulse 3+. Intact vibratory sensation. Intact sensation to monofilament. [facility] Medical History (Updated 09/03/24 @ 14:58 by CHENG La) Diabetes mellitus with hyperglycemia Fibromyalgia Encounter for general adult medical examination with abnormal findings Anxiety, generalized Vitamin D deficiency Back spasm Hypertension, essential Surgical History History of abdominal hysterectomy Family History Father Parkinson disease Mother Osteoporosis HTN (hypertension) Maternal Grandmother Cancer of kidney Maternal Grandfather Stroke Brother No problems noted. Brother No problems noted. Brother No problems noted. Sister No problems noted. Sister No problems noted. Sister No problems noted. Son No problems noted. Son No problems noted. Daughter No problems noted. Social History Housing: Apartment Alcohol intake: never Patient Tobacco Use Status: Never used Tobacco e-Cigarette/Vaping Use: Never Used service: No Current occupational status: employed Cognitive needs: No Hearing needs: No Vision needs: No Physical Exam Vital Signs: Last Vital Signs Pulse 75 09/03/24 13:45 BP 122/72 09/03/24 13:45 BMI result Body Mass Index 20.7 Results Reviewed Results Reviewed: Laboratory Tests 11/25/23 08/17/24 09:30 09:54 Creatinine 0.84 Estimated GFR > 60 Hemoglobin A1c % > 14.0 H LDL Cholesterol Direct 69 TSH 1.00 Urine Creatinine 134.86 Urine Microalbumin 104.0 Microalb/Creat Ratio 77.1 H Assessment & Plan Assessment & Plan (1) Uncontrolled diabetes mellitus: Code(s): E11.65 - Type 2 diabetes mellitus with hyperglycemia Category: Medical Plan In summary this is a 64-year-old female with uncontrolled diabetes currently on bolus insulin. Hyperglycemia has improved, and we need to determine if she is a type 1 or type 2 diabetic before starting her back on a GLP 1 or oral agents. MINDY antibody, C-peptide and islet cell antibody screening ordered today. We will also check screening BNP for diabetes. If it is greater than 50 I will order an echocardiogram. Reordered Becky 3 sensor and reader. Refer to nurse educator. She is also agreeable to seeing the dietitian. Continue using fingerstick glucometer as directed until Becky 3 is received. Reviewed treatment of hypo and hyperglycemia. Glucose tablets sent to pharmacy. Follow up in 2 weeks to review labs and glucometer data. Orders: Orders B Type Natriuretic Peptide Today E11.65 - Type 2 diabetes mellitus with hyperglycemia, E11.9 - Type 2 diabetes mellitus without complications Islet Cell Antibody Scrn/Titer Today E11.65 - Type 2 diabetes mellitus with hyperglycemia Glutamic acid decarboxylase Ab Today E11.65 - Type 2 diabetes mellitus with hyperglycemia C Peptide Today E11.65 - Type 2 diabetes mellitus with hyperglycemia Medications: New glucose (Dex4 Glucose) until symptoms of low blood sugar are controlled 16 grams (4 x 4 gram) PO Q15M PRN 60 tabs 1RF hypoglycemia Changed From blood-glucose meter,continuous (FreeStyle Becky 3 [place]) As directed 1 ea 0RF E10.43 - Type 1 diabetes mellitus with diabetic autonomic (poly)neuropathy, E11.29 - Type 2 diabetes mellitus with other diabetic kidney complication, R80.9 - Proteinuria, unspecified, 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 To blood-glucose meter,continuous (FreeStyle Becky 3 [place]) use as directed to monitor blood glucose continuously 1 ea 0RF E10.43 - Type 1 diabetes mellitus with diabetic autonomic (poly)neuropathy, E11.29 - Type 2 diabetes mellitus with other diabetic kidney complication, R80.9 - Proteinuria, unspecified, Z79.4 - senior living (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 of 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 From blood-glucose sensor (FreeStyle Becky 3 Plus Sensor device) Test blood sugar 4 times a day, change sensor every 14 days 2 ea 5RF E11.29 - Type 2 diabetes mellitus with other diabetic kidney complication, E11.65 - Type 2 diabetes mellitus with hyperglycemia, R80.9 - Proteinuria, unspecified, Z79.4 - senior living (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 of insulin To blood-glucose sensor (FreeStyle Becky 3 Plus Sensor device) apply new sensor every 14 days to monitor glucose continuously 2 ea 11RF E11.29 - Type 2 diabetes mellitus with other diabetic kidney complication, E11.65 - Type 2 diabetes mellitus with hyperglycemia, R80.9 - Proteinuria, unspecified, 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 If your blood sugar is under 50, take double the amount of one of the above. Recheck your blood sugar in 15 minutes. Si experimenta un nivel bajo de az?car en la gregorio, tr?telo comiendo un annalee de fruta masticable tere bolos o gominolas (aproximadamente 8 piezas), 4 onzas (1/2 taza) de jugo de fruta (no diet?dorcas), 1 cucharada de miel o 4 tabletas de glucosa. . Si michelle nivel de az?car en gregorio es inferior a 50, tome el doble de lupe de los anteriores. Vuelva a controlar michelle nivel de az?car en la gregorio en 15 minutos. Coding Level of Care Code New Pt Level 5 (54525) Complex EM visit Add On G2211 Diagnoses Uncontrolled diabetes mellitus E11.65 Time Spent (min) 65 Comment Chart review, direct patient care, completing documentation
[2024-09-03 13:45] VITALS: BP 122/72; PULSE 75; BMI 20.7
[2024-09-03 14:00] LABS: Glucose, Whole Blood 88 mg/dL (60-115)
== END 2024-09-03 14:36 | disposition home or self-care (01) ==
PROVIDERS: PCP Internal Medicine; Visit Provider Physician Assistant Medical
DX: E11.65 Type 2 diabetes mellitus with hyperglycemia (principal)

== ENCOUNTER 2024-09-03 13:33 | Outpatient (REF) | payer OTHER, SELFPAY ==
[2024-09-03 15:18] LABS: B Type Natriuretic Peptide 31 pg/mL (<100)
[2024-09-05 00:04] LABS: C Peptide 2.47 ng/mL (0.80-3.85)
[2024-09-08 17:12] LABS: Glutamic acid decarboxylase Ab <5 IU/mL (<5)
[2024-09-13 00:04] LABS: Islet Cell Antibody Screen NEGATIVE (NEGATIVE)
== END 2024-09-03 13:34 | disposition home or self-care (01) ==
LOC: HO.LAB 13:33
PROVIDERS: PCP Internal Medicine; Visit Provider Physician Assistant Medical
DX: E11.65 Type 2 diabetes mellitus with hyperglycemia (principal); E11.29 Type 2 diabetes mellitus with other diabetic kidney complication; E11.43 Type 2 diabetes mellitus with diabetic autonomic (poly)neuropathy; E78.5 Hyperlipidemia, unspecified; R80.9 Proteinuria, unspecified; Z79.4 Long term (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 of insulin; Z79.84 Long term (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 of oral hypoglycemic drugs
CPT/HCPCS: 36415; 82947; 83880; 84681; 86341; 99202

== ENCOUNTER 2024-09-17 15:47 | Outpatient (AMB) | payer OTHER, SELFPAY ==
--- NOTE | 2024-09-17 15:53 | A.OFFVIS_ITS ---
Vital Signs 09/17/24 15:54 Height 5 ft 3 in Weight 121 lb 4.068 oz BMI 21.5 BP 116/70 Blood Pressure Location Rt brachial Position Sitting Pulse 96 Pulse Source Pulse Oximeter Intake Visit Reasons: Type II DM/CONFIRMED Intake Note: Patient presents today for a follow-up on Type 1 Diabetes Mellitus: Last Diabetic eye exam was on: OVER DUE, has an appt 09/14/2024 Last Podiatry exam was on: Does not see a Sewer Pipe Cleaner Most recent HbA1c: >14.0%, 08/17/2024 Random Glucose- 117 mg/dL, Today Building Components Designer Required: Yes Building Components Designer Language: Refrigeration Technician Name: LOWELL Gonzales/NAKUL Solano Information Interpreted: clinical only Accompanied by: Self / Same As Patient Allergies lisinopril Allergy (Unknown, Verified 09/03/24 13:48) rash HPI Comments Details: This is a 64-year-old female with a past medical history of asthma, chronic pain, depression and anxiety, hypertension, fibromyalgia and hyperlipidemia presenting for an initial consult for diabetic management. She denies family history of type 1 and type 2 diabetes. C-peptide normal 2.47, MINDY and islet cell antibody negative and BNP within normal range 09/03/2024. Data paucity on CGM. She has severe needle phobia and gets vasovagal symptoms when she checks her blood sugar. I reviewed her glucometer download: In range 73% of the time Highest for 404 after she drank juice yesterday, 1 low of 69, average glucose 142 73% in range 18% hyperglycemic Only 0.8 readings per day We are submitting and appeal for the denial of her Becky 3 which is medically necessary since she requires insulin and needs to be monitored for hypo and hyperglycemia. As stated above she has severe needle phobia and can not safely and consistently monitor with a fingerstick glucometer. Hemoglobin a1c over 14% 08/17/2024. In November this year her A1c was 6.9%. Current medication regimen: Lantus 17 units nightly. She has been taking Metformin 500 mg in the morning. Diet: Breakfast-blueberry yogurt, ensure for diabetes, 2 boiled eggs Lunch-salad, vegetables, chicken soup with vegetables, corn Dinner-kiwi, green apple, almonds Drinks vitamin water zero sugar Snacks/desserts: None No alcohol or tobacco user. Hypoglycemia symptoms: none Hyperglycemia symptoms: polyuria, polydipsia, off balance, blurry vision, headache Eye exam: scheduled Microvascular complications: neuropathy, nephropathy (microalbuminuria) Macrovascular complications: No known Hypertension: treated with amlodipine and lisinopril. Hyperlipidemia: treated with atorvastatin. LDL at goal <100. ROS: Constitutional: No fevers, chills or night sweats. She has gained back some of the weight she lost. Eyes: No double vision or loss of vision or current blurry vision. Respiratory: No shortness of breath Cardiovascular: No chest pain Gastrointestinal: No anorexia, nausea, vomiting or diarrhea. No abdominal pain Neurologic: No headache, dizziness, syncope Skin: No open wounds. Endocrine: see HPI Physical exam: Constitutional: Alert, in no distress. Neck: Supple, Full range of motion. No lymphadenopathy. No palpable thyroid masses. Respiratory: Clear to auscultation. Cardiovascular: S1 S2 regular. No murmurs. [facility] Medical History (Updated 09/17/24 @ 14:47 by CHENG La) Needle phobia Diabetes mellitus with hyperglycemia Fibromyalgia Encounter for general adult medical examination with abnormal findings Anxiety, generalized Vitamin D deficiency Back spasm Hypertension, essential Surgical History History of abdominal hysterectomy Family History Father Parkinson disease Mother Osteoporosis HTN (hypertension) Maternal Grandmother Cancer of kidney Maternal Grandfather Stroke Brother No problems noted. Brother No problems noted. Brother No problems noted. Sister No problems noted. Sister No problems noted. Sister No problems noted. Son No problems noted. Son No problems noted. Daughter No problems noted. Social History Housing: Apartment Alcohol intake: never Patient Tobacco Use Status: Never used Tobacco e-Cigarette/Vaping Use: Never Used service: No Current occupational status: employed Cognitive needs: No Hearing needs: No Vision needs: No Physical Exam Vital Signs: BMI result Body Mass Index 21.5 Results Reviewed Results Reviewed: Laboratory Tests 11/25/23 08/17/24 09:30 09:54 Creatinine 0.84 Estimated GFR > 60 Hemoglobin A1c % > 14.0 H LDL Cholesterol Direct 69 TSH 1.00 Urine Creatinine 134.86 Urine Microalbumin 104.0 Microalb/Creat Ratio 77.1 H Assessment & Plan Assessment & Plan (1) Uncontrolled diabetes mellitus: Code(s): E11.65 - Type 2 diabetes mellitus with hyperglycemia Category: Medical Plan In summary this is a 64-year-old female with uncontrolled diabetes with improving glycemic control. Increase metformin to 500 mg twice daily. If she experiences low blood sugars she will decrease Lantus to 14 units daily. She is extremely needle phobic. Our goal will be to taper off Lantus, titrate metformin and possibly add SGLT2. See HPI regarding medical necessity of Becky 3. Reviewed treatment of hypo and hyperglycemia . She has glucose tablets. Patient requests Glucerna. Prescription handed to patient. Follow up in 3-4 weeks for type 2 diabetes. Medications: New nut.tx.gluc.intol,lac-free,soy (Glucerna oral liquid) 1 ea PO DAILY 28 days 6,636 mL 5RF Discontinued Ozempic (semaglutide) Discontinued Reason: Doctor's Order 1 mg (0.75 mL) subcut QWEEK 9 mL 0RF NS Patient Instructions: Increase Metformin to 500 mg twice daily. If you have low blood sugars please decrease Lantus from 17 units to 14 units daily. Aumente la metformina a 500 mg dos veces al d?a. Si tiene niveles bajos de az?car en gregorio, disminuya Lantus de 17 unidades a 14 unidades diarias. Coding Level of Care Code Est Pt Level 4 (19708) Complex EM visit Add On G2211 Diagnoses Uncontrolled diabetes mellitus E11.65
[2024-09-17 15:54] VITALS: BP 116/70; PULSE 96; BMI 21.5
[2024-09-17 16:02] LABS: Glucose, Whole Blood 117 mg/dL (60-115)
== END 2024-09-17 16:25 | disposition home or self-care (01) ==
PROVIDERS: PCP Internal Medicine; Visit Provider Physician Assistant Medical
DX: E11.65 Type 2 diabetes mellitus with hyperglycemia (principal)

== ENCOUNTER → 2024-09-17 15:47 | Outpatient (BNVA) | payer OTHER, SELFPAY | PROVIDERS: PCP Internal Medicine; Visit Provider Physician Assistant Medical | DX: E11.65 Type 2 diabetes mellitus with hyperglycemia (principal) | CPT/HCPCS: 82947; 99212 ==

== ENCOUNTER 2024-10-12 15:45 | Outpatient (AMB) | payer OTHER, SELFPAY ==
--- NOTE | 2024-10-12 15:47 | MHC.OFFVIS ---
Vital Signs 10/12/24 15:49 Height 5 ft 3 in Weight 127 lb 10.362 oz BMI 22.6 BP 100/58 L Blood Pressure Location Rt brachial Position Sitting Pulse 77 Pulse Source Pulse Oximeter Intake Visit Reasons: Type II diabetes follow up/CONF Intake Note: Patient present today to follow up on Type 2 Diabetes Mellitus. Last Diabetic Eye exam: 09/28/24 Last Podiatry Visit: Does not see a Legal Department Manager Random Glucose: 82 mg/dl HgA1C: >14.0% 08/17/24 Distribution Systems Superintendent Required: Yes Distribution Systems Superintendent Language: Field Auditor Services: Distribution Systems Superintendent Present Distribution Systems Superintendent Name: Ronald [id number] Information Interpreted: non-clinical & clinical Accompanied by: Self / Same As Patient Allergies lisinopril Allergy (Unknown, Verified 10/12/24 15:53) rash HPI Comments Details: This is a 64-year-old female with a past medical history of asthma, chronic pain, needle phobia, depression and anxiety, hypertension, fibromyalgia and hyperlipidemia presenting for diabetic management. Romansh video whale trainer provided for appointment. She denies family history of type 1 and type 2 diabetes. C-peptide normal 2.47, MINDY and islet cell antibody negative and BNP within normal range 09/03/2024. She picked up the CGM reader and sensors from the pharmacy. She does not have them with her today, but she has an appointment tomorrow with [facility] for training. Reviewed glucometer download. 100% of readings are at target range. She had 1 low sugar at 69 after she up to metformin to 500 mg twice daily. She felt dizzy and weak. She treated with orange juice and took glucose tablets to correct it. Following this she decrease Lantus to 14 units, and she has not had further episodes of hypoglycemia. Hemoglobin a1c over 14% 08/17/2024. In November 2023 this year her A1c was 6.9%. Current medication regimen: Lantus 14 units nightly and Metformin 500 mg twice daily. Diet: Breakfast-blueberry yogurt, ensure for diabetes, 2 boiled eggs Lunch-salad, vegetables, chicken soup with vegetables, corn Dinner-kiwi, green apple, almonds Drinks vitamin water zero sugar Snacks/desserts: None No alcohol or tobacco user. Hypoglycemia symptoms: 1 episode 1 week ago and she felt dizzy and weak at BG 69, she drank OJ and took glucose tablets to correct it. Hyperglycemia symptoms: none Eye exam: scheduled Microvascular complications: neuropathy, nephropathy (microalbuminuria) Macrovascular complications: No known Hypertension: treated with amlodipine and lisinopril. Hyperlipidemia: treated with atorvastatin. LDL at goal <100. ROS: Constitutional: No fevers, chills or night sweats. She has gained back some of the weight she lost when she had hyperglycemia related to diabetes. Eyes: No double vision or loss of vision or current blurry vision. Respiratory: No shortness of breath Cardiovascular: No chest pain Gastrointestinal: No anorexia, nausea, vomiting or diarrhea. No abdominal pain Neurologic: No headache, dizziness, syncope Skin: No open wounds. Endocrine: see HPI Physical exam: Constitutional: Alert, in no distress. Neck: Supple, Full range of motion. No lymphadenopathy. No palpable thyroid masses. Respiratory: Clear to auscultation. Cardiovascular: S1 S2 regular. No murmurs. [facility] Medical History (Updated 10/12/24 @ 16:33 by HCENG La) Controlled type 2 diabetes mellitus Needle phobia Diabetes mellitus with hyperglycemia Fibromyalgia Encounter for general adult medical examination with abnormal findings Anxiety, generalized Vitamin D deficiency Back spasm Hypertension, essential Surgical History History of abdominal hysterectomy Family History Father Parkinson disease Mother Osteoporosis HTN (hypertension) Maternal Grandmother Cancer of kidney Maternal Grandfather Stroke Brother No problems noted. Brother No problems noted. Brother No problems noted. Sister No problems noted. Sister No problems noted. Sister No problems noted. Son No problems noted. Son No problems noted. Daughter No problems noted. Social History Housing: Apartment Alcohol intake: never Patient Tobacco Use Status: Never used Tobacco e-Cigarette/Vaping Use: Never Used service: No Current occupational status: employed Cognitive needs: No Hearing needs: No Vision needs: No Results Reviewed Results Reviewed: Laboratory Tests 11/25/23 08/17/24 09:30 09:54 Creatinine 0.84 Estimated GFR > 60 Hemoglobin A1c % > 14.0 H LDL Cholesterol Direct 69 TSH 1.00 Urine Creatinine 134.86 Urine Microalbumin 104.0 Microalb/Creat Ratio 77.1 H Assessment & Plan Assessment & Plan (1) Controlled type 2 diabetes mellitus: Code(s): E11.9 - Type 2 diabetes mellitus without complications Category: Medical Plan In summary this is a 64-year-old female with controlled Type II diabetes per glucometer data. Our goal is to taper off Lantus since she has severe needle phobia. This week increase Metformin to 2 tablets (1000 mg) in the morning and 1 tablet at dinner and decrease Lantus to 5 units daily. If you are experiencing low blood sugars after this stop Lantus completely and do not increase Metformin further. If your blood sugars are between 70-180 try stopping Lantus completely. If they increase over 180 after stopping Lantus, increase Meformin to 2 tablets twice daily and stay off Lantus. She will follow up with the patient educator tomorrow for CGM training. Reviewed treatment of hypo and hyperglycemia. She has glucose tablets. Follow up in 4 weeks for type 2 diabetes. Patient Instructions: Esta semana aumente Metformin a 2 tabletas (1000 mg) por la ma?celso y 1 tableta en la needlemaker y disminuya Lantus a 5 unidades diarias. Si experimenta niveles bajos de az?car en la gregorio despu?s de esto, suspenda Lantus por completo y no aumente m?s la metformina. Si power niveles de az?car en gregorio est?n entre 70 y 180, intente suspender Lantus por completo. Si aumentan m?s de 180 despu?s de suspender Lantus, aumente Meformin a 2 tabletas dos veces al d?a y no tome Lantus. Coding Level of Care Code Est Pt Level 4 (62054) Complex EM visit Add On G2211 Diagnoses Controlled type 2 diabetes mellitus E11.9
[2024-10-12 15:49] VITALS: BP 100/58; PULSE 77; BMI 22.6
[2024-10-12 16:03] LABS: Glucose, Whole Blood 82 mg/dL (60-115)
== END 2024-10-12 16:27 | disposition home or self-care (01) ==
PROVIDERS: PCP Internal Medicine; Visit Provider Physician Assistant Medical
DX: E11.9 Type 2 diabetes mellitus without complications (principal)

== ENCOUNTER → 2024-10-12 15:45 | Outpatient (BNVA) | payer OTHER, SELFPAY | PROVIDERS: PCP Internal Medicine; Visit Provider Physician Assistant Medical | DX: E11.9 Type 2 diabetes mellitus without complications (principal); E78.5 Hyperlipidemia, unspecified; I10 Essential (primary) hypertension; Z79.84 Long term (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 of oral hypoglycemic drugs | CPT/HCPCS: 82947; 99212 ==

== ENCOUNTER 2024-10-13 13:50 | Outpatient (AMB) | payer OTHER, SELFPAY ==
--- NOTE | 2024-10-13 14:22 | A.OFFVIS_ITS ---
Intake Intake Visit Reasons: DM-confirmed Metal Products Fabricator Assembler Required: Yes Metal Products Fabricator Assembler Language: Nurse Plastics Name: [place] [facility] [place] Interpreted: non-clinical & clinical Accompanied by: Self / Same As Patient Allergies lisinopril Allergy (Unknown, Verified 10/12/24 15:53) rash HPI Comprehensive Diabetes Asmnt Most Recent Diabetes Results: Microalb/Creat Ratio 77.1 ug/mg cr (<30) H 11/25/23 Cholesterol 168 mg/dL (<200) 11/25/23 HDL Cholesterol 41 mg/dL (>40) 11/25/23 Triglycerides 67 mg/dL (<150) 11/25/23 Creatinine 0.84 mg/dL (0.5-1.4) 08/17/24 Blood Urea Nitrogen 17 mg/dL (9-16) H 08/17/24 Sodium 138 mmol/L (135-145) 08/17/24 Potassium 4.9 mmol/L (3.3-5.1) 08/17/24 Chloride 104 mmol/L (96-108) 08/17/24 Carbon Dioxide 26 mmol/L (22-29) 08/17/24 Calcium 9.7 mg/dL (8.4-10.2) 08/17/24 AST 24 U/L (5-31) 08/17/24 ALT 31 U/L (0-31) 08/17/24 Total Protein 7.6 g/dL (6.5-8.0) 08/17/24 Albumin 4.4 g/dL (3.5-5.0) 08/17/24 [facility] Medical History (Updated 10/12/24 @ 16:33 by CHENG La) Controlled type 2 diabetes mellitus Needle phobia Diabetes mellitus with hyperglycemia Fibromyalgia Encounter for general adult medical examination with abnormal findings Anxiety, generalized Vitamin D deficiency Back spasm Hypertension, essential Surgical History History of abdominal hysterectomy Family History Father Parkinson disease Mother Osteoporosis HTN (hypertension) Maternal Grandmother Cancer of kidney Maternal Grandfather Stroke Brother No problems noted. Brother No problems noted. Brother No problems noted. Sister No problems noted. Sister No problems noted. Sister No problems noted. Son No problems noted. Son No problems noted. Daughter No problems noted. Social History Housing: Apartment Alcohol intake: never Patient Tobacco Use Status: Never used Tobacco e-Cigarette/Vaping Use: Never Used service: No Current occupational status: employed Cognitive needs: No Hearing needs: No Vision needs: No Assessment & Plan Assessment & Plan (1) Type 2 diabetes mellitus: Code(s): E11.9 - Type 2 diabetes mellitus without complications Qualifiers: Diabetes mellitus complication detail: with diabetic microalbuminuria Diabetes mellitus complication status: with kidney complications Diabetes mellitus [facility] use: with [facility] use Qualified Code(s): E11.29 - Type 2 diabetes mellitus with other diabetic kidney complication; R80.9 - Proteinuria, unspecified; 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 Discussed lag time between finger stick and sensor data.? Instructed patient she should always keep blood glucometer for backup testing if needed Reviewed delay of CGM from fingersticks Reminded pt that if symptoms do not match sensor still needs to check fingersticks. Portions of this note were created using voice recognition software, please excuse any words or phrases that may have been misinterpreted. Patient instruction: CGM provides information on blood glucose control throughout the day, including hyperglycemia and hypoglycemia. ? Continue to monitor blood glucose as instructed. Follow nutrition guidelines provided. Report any discomfort promptly to health care provider. ?Stay well-hydrated. You can bathe ,shower, swim and exercise while wearing the glucose sensor. Do not submerge glucose sensor in water for more than 30 minutes. Patient Instructions: Instrucciones para el paciente: CGM proporciona informaci?n sobre el control de la glucosa en gregorio a lo jocelyn del d?a, incluidas la hiperglucemia y la hipoglucemia. Contin?e controlando la glucosa en gregorio seg?n las instrucciones. Siga las pautas de nutrici?n proporcionadas. Informe cualquier molestia de inmediato al proveedor de atenci?n m?dica. Mantente vamsi hidratado. Puede ba?arse, ducharse, nadar y hacer ejercicio mientras usa el sensor de glucosa. No sumerja el sensor de glucosa en agua roxi m?s de 30 minutos. Retire el sensor para joaquin resonancia magn?arnold o joaquin tomograf?a computarizada. Evite la m?quina de karen X en los aeropuertos: retire el sensor o solicite la varita Coding Level of Care Code Est Pt Level 1 (04073) Diagnoses Type 2 diabetes mellitus with diabetic microalbuminuria, with long-term current use of insulin E11.29; R80.9; Z79.4 Diabetes mellitus complication detail: with diabetic microalbuminuria Diabetes mellitus complication status: with kidney complications Diabetes mellitus [facility] insulin use: with [facility] use
== END 2024-10-13 14:28 | disposition home or self-care (01) ==
PROVIDERS: PCP Internal Medicine; Visit Provider Registered Nurse Diabetes Educator
DX: E11.29 Type 2 diabetes mellitus with other diabetic kidney complication (principal); R80.9 Proteinuria, unspecified; Z79.4 Long term (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 of insulin

== ENCOUNTER → 2024-10-13 13:50 | Outpatient (BNVA) | payer OTHER, SELFPAY | PROVIDERS: PCP Internal Medicine; Visit Provider Registered Nurse Diabetes Educator | DX: E11.29 Type 2 diabetes mellitus with other diabetic kidney complication (principal); R80.9 Proteinuria, unspecified; Z79.4 Long term (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 of insulin | CPT/HCPCS: 99211 ==

== ENCOUNTER 2024-10-26 14:46 | Outpatient (AMB) | payer OTHER, SELFPAY ==
--- NOTE | 2024-10-26 15:23 | A.OFFVIS_ITS ---
Intake Intake Visit Reasons: 60 min Client Support Professional Required: Yes Client Support Professional Language: Forge Press Operator [facility] Information Interpreted: non-clinical & clinical Accompanied by: Self / Same As Patient Allergies lisinopril Allergy (Unknown, Verified 10/12/24 15:53) rash HPI Comprehensive Diabetes Asmnt Most Recent Diabetes Results: No Data to Display [facility] Medical History (Updated 10/12/24 @ 16:33 by CHENG La) Controlled type 2 diabetes mellitus Needle phobia Diabetes mellitus with hyperglycemia Fibromyalgia Encounter for general adult medical examination with abnormal findings Anxiety, generalized Vitamin D deficiency Back spasm Hypertension, essential Surgical History History of abdominal hysterectomy Family History Father Parkinson disease Mother Osteoporosis HTN (hypertension) Maternal Grandmother Cancer of kidney Maternal Grandfather Stroke Brother No problems noted. Brother No problems noted. Brother No problems noted. Sister No problems noted. Sister No problems noted. Sister No problems noted. Son No problems noted. Son No problems noted. Daughter No problems noted. Social History Housing: Apartment Alcohol intake: never Patient Tobacco Use Status: Never used Tobacco e-Cigarette/Vaping Use: Never Used service: No Current occupational status: employed Cognitive needs: No Hearing needs: No Vision needs: No Assessment & Plan Assessment & Plan (1) Type 2 diabetes mellitus: Code(s): E11.9 - Type 2 diabetes mellitus without complications Qualifiers: Diabetes mellitus complication detail: with diabetic microalbuminuria Diabetes mellitus complication status: with kidney complications Diabetes mellitus termite exterminator insulin use: with termite exterminator use Qualified Code(s): E11.29 - Type 2 diabetes mellitus with other diabetic kidney complication; R80.9 - Proteinuria, unspecified; Z79.4 - [facility] (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 of insulin Plan: Personal Continuous Glucose Monitor: Patients CGM information reviewed, Pt uses [facility] Becky 3, with reader Sensor data: Hypoglycemia: ? 0 % Hyperglycemia:? 8% Time in Range:? 92% Average glucose for the last 2 weeks?127 mg/dL Levels have improved since starting medication and using Becky 3 Patient did reports she has drastically reduce the amount of carbohydrate in her diet, we eating rice or beans once a week Reviewed how to interpret trend arrows Reminded patient that to check finger sticks if symptoms do not match sensor reading. Discussed lag time between finger stick and sensor data.? Patient able to insert sensor independently at home without issue.? Learning objectives: The patient was provided with verbal and written education on the following topics as outlined below. The patient met all learning objectives and was able to verbalize understanding and provide teach back of education topics discussed . The patient was provided with the opportunity to ask questions and all questions were answered. 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 Patient is experiencing some hypoglycemia over the past several weeks. Was told to stop insulin approximately 4 days ago. Glucose levels remain within target, hypoglycemia has resolved What is Diabetes? Pathophysiology How the body produces and uses insulin Identify type of DM Risk factors Signs of Diabetes Brief overview of Diabetes Management Monitoring blood sugar Following a meal plan Regular exercise Maintaining a healthy weight Taking medication as needed Members of the care team (PCP, RN, MA, RD, CDE, customer solutions architect) Blood glucose monitoring When/how often to test Target blood sugar ranges Introduction to Nutrition Importance of healthy diet in managing DM Diet is personalized to individual preference Review patient?s regular diet/food preferences Who prepares meals/does food shopping/ Dining out?/ Barriers? How diet effects glucose Eating 3 balanced meals a day with small, healthy snacks between meals Review food groups Carbohydrates: What is a carbohydrate/Which food/food groups are considered carbohydrates Effect of carbohydrates on blood glucose Portion sizes Reading food labels Basic carb counting (if applicable per nursing assessment) Plate method Meal planning Recommendations: Follow plate method, consistent carbs and read nutritional labels. Smart Goal: Patient will identify foods in current meal plan that contain carbohydrate Educational Materials: The patient was provided with the following written educational materials: Planning Healthy Meals Handout Patient Response to instructions: Comprehension of Instructions: good Readiness to make changes: Contemplation How confident they feel about making changes: Positive Patient will follow-up with Diabetes Education nurse in 2 months Portions of this note were created using voice recognition software, please excuse any words or phrases that may have been misinterpreted. Patient Instructions: Incluir actividad diaria regular. ADA recomienda 30 minutos de ejercicio 5 d?as a la semana. P?rdida de peso, hable con el PCP o el cardi?logo antes de comenzar un nuevo plan. Mida el nivel de az?car en la gregorio seg?n las indicaciones; Ayuno y comida m?s angela de 2hpp. Observe las tendencias en los resultados. Utilice los resultados y eval?e c?mo los alimentos, la actividad f?lawrence y los medicamentos afectan los resultados de az?car en la gregorio. Lleve el gluc?metro o CGM a la pr?xima visita. Conocer los medicamentos para la diabetes, michelle acci?n, los efectos secundarios, la eficacia, la toxicidad, la dosis prescrita, el momento y la frecuencia de administraci?n apropiados, el efecto de las dosis olvidadas y retrasadas y las instrucciones de almacenamiento, viaje y seguridad. T?cnicas de resoluci?n de problemas para el seguimiento de episodios de hipo/hiperglucemia y tratamientos. Reducir los comportamientos de reducci?n de riesgos, dejar de fumar, ex?menes regulares de ojos, pies y dentales. Coding Level of Care Code Est Pt Level 1 (84985) Diagnoses Type 2 diabetes mellitus with diabetic microalbuminuria, with long-term current use of insulin E11.29; R80.9; Z79.4 Diabetes mellitus complication detail: with diabetic microalbuminuria Diabetes mellitus complication status: with kidney complications Diabetes mellitus [facility] insulin use: with [facility] use
== END 2024-10-26 15:28 | disposition home or self-care (01) ==
PROVIDERS: PCP Internal Medicine; Visit Provider Registered Nurse Diabetes Educator
DX: E11.29 Type 2 diabetes mellitus with other diabetic kidney complication (principal); R80.9 Proteinuria, unspecified; Z79.4 Long term (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 of insulin

== ENCOUNTER → 2024-10-26 14:46 | Outpatient (BNVA) | payer OTHER, SELFPAY | PROVIDERS: PCP Internal Medicine; Visit Provider Registered Nurse Diabetes Educator | DX: E11.65 Type 2 diabetes mellitus with hyperglycemia (principal); E11.29 Type 2 diabetes mellitus with other diabetic kidney complication; R80.9 Proteinuria, unspecified; Z79.4 Long term (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 of insulin | CPT/HCPCS: 99211 ==

== ENCOUNTER 2024-11-16 14:21 | Outpatient (REF) | payer OTHER, SELFPAY ==
[2024-11-16 16:18] LABS: MANUAL DIFF FLAG NO
[2024-11-16 17:12] LABS: Basophils Percent Auto 0.4 % (0-2); Eosinophils Absolute Auto 0.1 X10*3/uL (0.0-0.4); Eosinophils Percent Auto 1.1 % (0-4); Hematocrit 43.8 % (37.0-47.0); Hemoglobin 14.2 g/dl (12.0-16.0); Imm Gran Abs Auto 0.01 X10*3/uL (0.00-0.03); Imm Gran Pct Auto 0.1 % (0.0-0.4); Lymphocytes Absolute Auto 1.8 X10*3/uL (1.2-4.9); Lymphocytes Percent Auto 24.7 % (20-40); Mean Corpuscular HGB Conc 32.4 g/dl (31.0-35.0); Mean Corpuscular Volume 92.4 fL (80.0-98.0); Mean Platelet Volume 9.4 fL (9.4-12.3); Monocytes Absolute Auto 0.6 X10*3/uL (0.1-1.2); Monocytes Percent Auto 8.2 % (2-11); Neutrophils Absolute Auto 4.8 x10*3/uL (2.0-8.3); Neutrophils Percent Auto 65.5 % (45-73); Platelet Count 267 X10*3/uL (160-400); Red Blood Count 4.74 X10*6/uL (4.20-5.50); Red Cell Distribution Width 11.9 % (11.0-16.0); White Blood Count 7.3 X10*3/uL (4.8-10.8)
[2024-11-16 17:17] LABS: Estimated Average Glucose 140 mg/dL; Hemoglobin A1C 176.8949 umol/L; Hemoglobin A1c % 6.5 % (<6.0); Total Hemoglobin (HGBA1C) 3711.4266 umol/L
[2024-11-16 18:00] LABS: Alanine Aminotransferase 41 U/L (0-31); Albumin Level 4.7 g/dL (3.5-5.0); Alkaline Phosphatase 72 U/L (39-117); Anion Gap 12 (12-20); Aspartate Amino Transferase 25 U/L (5-31); Bilirubin Total 0.3 mg/dL (0.0-1.0); Blood Urea Nitrogen 18 mg/dL (9-16); Calcium 9.5 mg/dL (8.4-10.2); Carbon Dioxide 25 mmol/L (22-29); Chloride 106 mmol/L (96-108); Estimated Glomerular Filt Rate > 60; Glucose Random 181 mg/dL (60-115); Potassium 4.5 mmol/L (3.3-5.1); Sodium 138 mmol/L (135-145); Total Protein 8.3 g/dL (6.5-8.0)
[2024-11-16 18:06] LABS: Creatinine Urine 34.44 mg/dL; Microalbum/Creatinine Ratio Ur 31.9 ug/mg cr (<30)
[2024-11-16 18:16] LABS: TSH reflex Free T4 2.02 uIU/mL (0.32-4.0)
[2024-11-16 18:19] LABS: Vitamin B12 1298 pg/mL (200-900)
== END 2024-11-16 14:22 | disposition home or self-care (01) ==
LOC: HO.LAB 14:21
PROVIDERS: PCP Internal Medicine; Visit Provider Physician Assistant Medical
DX: E11.29 Type 2 diabetes mellitus with other diabetic kidney complication (principal); E10.43 Type 1 diabetes mellitus with diabetic autonomic (poly)neuropathy; Z91.89 Other specified personal risk factors, not elsewhere classified; R80.9 Proteinuria, unspecified; G89.4 Chronic pain syndrome; G47.9 Sleep disorder, unspecified; F33.41 Major depressive disorder, recurrent, in partial remission; E78.9 Disorder of lipoprotein metabolism, unspecified; Z79.4 Long term (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 of insulin; G43.919 Migraine, unspecified, intractable, without status migrainosus; R42 Dizziness and giddiness; M79.7 Fibromyalgia; I10 Essential (primary) hypertension; F41.1 Generalized anxiety disorder; J45.40 Moderate persistent asthma, uncomplicated; R68.89 Other general symptoms and signs
CPT/HCPCS: 36415; 80053; 82043; 82570; 82607; 82947; 83036; 84443; 85025; 99212

== ENCOUNTER 2024-11-16 14:21 | Outpatient (AMB) | payer OTHER, SELFPAY ==
[2024-11-16 14:57] VITALS: BP 130/68; PULSE 79; BMI 22.3
--- NOTE | 2024-11-16 14:57 | A.OFFVIS_ITS ---
Vital Signs 11/16/24 14:57 Height 5 ft 3 in Weight 126 lb BMI 22.3 BP 130/68 Blood Pressure Location Lt brachial Position Sitting Pulse 79 Pulse Source Pulse Oximeter Intake Visit Reasons: T2DM Intake Note: Patient present today to follow up on Type 2 Diabetes Mellitus. Last Diabetic Eye exam: 09/28/2024 Last Podiatry Visit: Does not see a Manager Medical Random Glucose:67 mg/dl @ 3:25pm 139mg/dl @ 3:44pm HgA1C: 7.0% Superintendent Communications Required: No Accompanied by: Self / Same As Patient Allergies lisinopril Allergy (Unknown, Verified 11/16/24 15:19) rash HPI Comments Details: This is a 64-year-old female with a past medical history of asthma, chronic pain, needle phobia, depression and anxiety, hypertension, fibromyalgia and hyperlipidemia presenting for diabetic management. 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 She denies family history of type 1 and type 2 diabetes. C-peptide normal 2.47, MINDY and islet cell antibody negative and BNP within normal range 09/03/2024. Reviewed Nepris data download for the past 2 weeks CGM active 98% Average glucose 132 GMI 6.5% Glucose variability 28.9% Greater than 250 mg/dL 0% 181-250 mg/dL 12% Target range 70-180 mg/dL 87% 54-69 mg/dL 1% Less than 54 mg/dL 0% The pattern is some episodes of hyperglycemia in the morning and evening and hypoglycemia overnight and in the afternoon. Her lowest glucose was 48. POC today 67. Denies hypoglycemia symptoms. Hemoglobin A1c today 7% 11/16/2024 down from Hemoglobin a1c over 14% 08/17/2024. Current medication regimen: Metformin 500 mg twice daily. Did not decrease to 1 tab daily though instructions were given to do this over the phone when she called about hypoglycemia. Lantus discontinued due to hypoglycemia. Hypoglycemia symptoms: Dizziness, weakness. Treats with OJ. Hyperglycemia symptoms: none Microvascular complications: neuropathy, nephropathy (microalbuminuria) Macrovascular complications: No known Hypertension: treated with amlodipine and lisinopril. Hyperlipidemia: treated with atorvastatin. LDL at goal <100. ROS: Constitutional: No fevers, chills or night sweats. Weight is stable. Eyes: No double vision or loss of vision or current blurry vision. Respiratory: No shortness of breath Cardiovascular: No chest pain Gastrointestinal: No anorexia, nausea, vomiting or diarrhea. No abdominal pain Neurologic: No headache, dizziness, syncope Skin: No open wounds. Endocrine: Patient reports feeling hot frequently at night but does not associate it with hot flash or sweating Physical exam: Constitutional: Alert, in no distress. Neck: Supple, Full range of motion. No lymphadenopathy. No palpable thyroid masses. Respiratory: Clear to auscultation. Cardiovascular: S1 S2 regular. No murmurs. REPLACED BY [facility] Medical History (Updated 11/16/24 @ 16:17 by CHENG La) Hypoglycemia Controlled type 2 diabetes mellitus Needle phobia Diabetes mellitus with hyperglycemia Fibromyalgia Encounter for general adult medical examination with abnormal findings Anxiety, generalized Vitamin D deficiency Back spasm Hypertension, essential Surgical History History of abdominal hysterectomy Family History Father Parkinson disease Mother Osteoporosis HTN (hypertension) Maternal Grandmother Cancer of kidney Maternal Grandfather Stroke Brother No problems noted. Brother No problems noted. Brother No problems noted. Sister No problems noted. Sister No problems noted. Sister No problems noted. Son No problems noted. Son No problems noted. Daughter No problems noted. Social History Housing: Apartment Alcohol intake: never Patient Tobacco Use Status: Never used Tobacco e-Cigarette/Vaping Use: Never Used service: No Current occupational status: employed Cognitive needs: No Hearing needs: No Vision needs: No Physical Exam Vital Signs: Last Vital Signs Pulse 79 11/16/24 14:57 BP 130/68 11/16/24 14:57 BMI result Body Mass Index 22.3 Office Procedures Glucose Monitoring Details Details: see HPI 63547 - Glucose monitoring, continuous-physician I&R Procedure code (CPT) selection complete Results AMB Hemoglobin A1c AMB Hemoglobin A1c 7.0 % Last Edit by LOWELL Dahl on 11/16/24 15:35 Results Reviewed Results Reviewed: Laboratory Last Values Glucose (Clinic) 67 mg/dL (60-115) 11/16/24 15:22 Hgb A1c (Clinic) 7.0 % (4.0-6.0) H 11/16/24 15:27 Assessment & Plan Assessment & Plan (1) Controlled type 2 diabetes mellitus: Code(s): E11.9 - Type 2 diabetes mellitus without complications Category: Medical Qualifiers: Diabetes mellitus intermediate manager insulin use: without care home use Diabetes mellitus complication status: with kidney complications Diabetes mellitus complication detail: with diabetic microalbuminuria Qualified Code(s): E11.29 - Type 2 diabetes mellitus with other diabetic kidney complication; R80.9 - Proteinuria, unspecified (2) Hypoglycemia: Code(s): E16.2 - Hypoglycemia, unspecified Category: Medical (3) Sensation of feeling hot: Code(s): R68.89 - Other general symptoms and signs Plan In summary this is a 64-year-old female with controlled Type II diabetes per glucometer data. She has frequent hypoglycemia. She stopped Lantus. Patient has mild hypoglycemia today. Treated with gingerale and 4 glucose tablets. Repeat POC 139. Stop Metformin 500 mg BID. Start Metformin ER 500 mg daily. Reviewed treatment of hypo and hyperglycemia. She has glucose tablets. Check BMP, TSH, b12 today. Check BG during episodes of heat intolerance. Follow up in 2-3 weeks for type 2 diabetes. Orders: Orders Basic Metabolic Panel Today E11.9 - Type 2 diabetes mellitus without complications Vitamin B12 Today E11.9 - Type 2 diabetes mellitus without complications, Z91.89 - Other specified personal risk factors, not elsewhere classified AMB Glucose Monitoring Today E11.9 - Type 2 diabetes mellitus without complications AMB Hemoglobin A1c Today E11.9 - Type 2 diabetes mellitus without complications, Z13.9 - Encounter for screening, unspecified TSH reflex Free T4 Today E11.9 - Type 2 diabetes mellitus without complications Medications: New metformin ER 500 mg PO DAILY 90 tabs 0RF Discontinued metformin Discontinued Reason: Doctor's Order 500 mg PO BID 60 tabs 3RF metformin ER Replaces Metformin 500 mg twice daily. Discontinued Reason: Doctor's Order 750 mg PO DAILY 90 tabs 0RF Patient Instructions: Stop Metformin 500 mg twice daily. Start Metformin extended release 500 mg once daily. Suspenda Metformina 500 mg dos veces al d?a. Inicie Metformina de liberaci?n prolongada 500 mg joaquin vez al d?a. Coding Level of Care Code Est Pt Level 4 (01975) Diagnoses Controlled type 2 diabetes mellitus with microalbuminuria, without long-term current use of insulin E11.29; R80.9 Diabetes mellitus care home insulin use: without care home use Diabetes mellitus complication status: with kidney complications Diabetes mellitus complication detail: with diabetic microalbuminuria Hypoglycemia E16.2 Sensation of feeling hot R68.89 CPT Codes Details - CPT: 11210 - Glucose monitoring, continuous-physician I&R ([id number])
[2024-11-16 15:26] LABS: Glucose, Whole Blood 67 mg/dL (60-115)
[2024-11-16 15:47] LABS: Glucose, Whole Blood 139 mg/dL (60-115)
== END 2024-11-16 15:46 | disposition home or self-care (01) ==
PROVIDERS: PCP Internal Medicine; Visit Provider Physician Assistant Medical
DX: E11.29 Type 2 diabetes mellitus with other diabetic kidney complication (principal); R80.9 Proteinuria, unspecified; E16.2 Hypoglycemia, unspecified; R68.89 Other general symptoms and signs

== ENCOUNTER 2024-11-24 14:00 | Outpatient (AMB) | payer OTHER, SELFPAY ==
[2024-11-24 14:08] VITALS: BP 130/70; PULSE 74; O2SAT 97; BMI 24.1
--- NOTE | 2024-11-24 14:08 | A.OFFPC_ITS ---
Vital Signs 11/24/24 14:08 Height 5 ft 3 in Weight 136 lb 2 oz BMI 24.1 BP 130/70 Blood Pressure Location Rt brachial Position Sitting Pulse 74 Pulse Source Pulse Oximeter Pulse Oximetry (%) 97 Oxygen Delivery Method Room Air Intake Visit Reasons: Annual PE Allergies lisinopril Allergy (Unknown, Verified 11/24/24 14:11) rash Medication List - Last Reconciled 11/24/24 by Gila Bragg MD albuterol sulfate 0.63 mg (3 mL) inhalation QID PRN alcohol swabs (Alcohol Pads) 1 pad topical .three times per day amlodipine 10 mg PO DAILY aspirin (Adult Low Dose Aspirin) 81 mg PO DAILY atorvastatin 40 mg PO BEDTIME [Blood pressure monitor As directed] blood-glucose meter (Mangrove Systemsuch Verio Flex Meter) As directed blood-glucose meter,continuous (FreeStyle Becky 3 Crandall) use as directed to monitor blood glucose continuously blood-glucose sensor (FreeStyle Becky 3 Plus Sensor device) apply new sensor every 14 days to monitor glucose continuously ergocalciferol (vitamin D2) 2,000 units PO DAILY 90 days escitalopram oxalate 10 mg PO DAILY 90 days glucose (Dex4 Glucose) 16 grams (4 x 4 gram) PO Q15M PRN lancets (MDdatacorTouch Delica Plus Lancet) Use lancet 3 times daily with meter to check blood glucose. lidocaine 5% (Lidoderm) 1 patch topical DAILY losartan 25 mg PO DAILY metformin ER 500 mg PO DAILY nut.tx.gluc.intol,lac-free,soy (Glucerna oral liquid) 1 ea PO DAILY 28 days [strips one touch Verio Use 1 strip 3 times daily to check blood glucose.] [Updraft machine As directed] Tobacco use date assessed: 11/24/24 Dental Screening Dental Screen Date: 11/24/24 Did you have a dental visit in the last 12 months?: Yes Did you have a dental problem in the last 6 months where you did not have access to dental care?: No Was dental information given to patient?: Patient has dentist HPI Annual PE HPI Details Physical exam appointment - The patient is a 64-year-old female - Hyperlipidemia: Managed with atorvasta tin. - Anxiety: Being treated with Lexapro as per current regimen. - Fibromyalgia: gabapentin no longer wo rking, Transition to Lyrica , script sent - blood pressure is stable with amlodipi ne - lipid disorder: Continue atorvastatin 40 mg - continue vitamin-D supplement - continue metformin for diabetes, hemog lobin A1c 6.5 on Labs done recently Health Maintenance - Mammogram: Patient is due and an order has been placed for the upcoming screening. - Pap smear: Inquiry as to last test, mo re than three years, recommended follow- up with gynecology. - Colonoscopy: Patient uncertain about p revious screening; plan to verify past testing to ensure compliance. Patient Instructions - Begin taking Lyrica for fibromyalgia p ain as prescribed. - Return for follow-up in three weeks to assess the effectiveness of medication changes. - Undergo scheduled mammogram and arrang e a timeline for colonoscopy screening if necessary. - continue all other medications as pres cribed Review of Systems - Musculoskeletal: Reports fibromyalgia pain; discontinued gabapentin due to side effects. - Neurological/Psychiatric: Anxiety note d; stable on Lexapro. - General: No fever no chills - Ear nose throat: No sore throat no hearing difficulty no ear pain - Cardiovascular: No syncope, no chest pain, no palpitations - Gastrointestinal: No nausea vomiting or diarrhea - Endocrine: No polyuria polydipsia no heat intolerance - Genitourinary: No dysuria - Skin: No new complaints Physical Exam General: Cooperative, healthy appearing, comfortable, no acute distress Orientation: Patient oriented x3 Limitations: None Head: Normal to inspection Ears: Within normal limit visually Nose: Normal external nose present Face and sinus: Normal facial exam Eyes: Appearance normal, extraocular movement intact pupils reactive Neck: Normal visual inspection and supple Respiratory: Normal respiratory effort and able to speak in complete sentences. Clear to auscultation, no stridor Breast exam declined Cardiovascular: S1 and S2 GI: Normal to inspection. Soft to palpation and nontender Skin: Turgor normal, no acute findings Neuro: Patient oriented x3, motor sensory intact, balance intact, tandem pass Extremities: Normal to inspection Follow-up 3 weeks starting Lyrica Physical exam 1 year [facility] Medical History Hypoglycemia Controlled type 2 diabetes mellitus Needle phobia Diabetes mellitus with hyperglycemia Fibromyalgia Encounter for general adult medical examination with abnormal findings Anxiety, generalized Vitamin D deficiency Back spasm Hypertension, essential Surgical History History of abdominal hysterectomy Family History Father Parkinson disease Mother Osteoporosis HTN (hypertension) Maternal Grandmother Cancer of kidney Maternal Grandfather Stroke Brother No problems noted. Brother No problems noted. Brother No problems noted. Sister No problems noted. Sister No problems noted. Sister No problems noted. Son No problems noted. Son No problems noted. Daughter No problems noted. Social History Housing: Apartment Alcohol intake: never Patient Tobacco Use Status: Never used Tobacco e-Cigarette/Vaping Use: Never Used service: No Current occupational status: employed Cognitive needs: No Hearing needs: No Vision needs: No Questionnaire PHQ-9 Over the last 2 weeks, how often have you been bothered by any of the following problems? 1. Little interest or pleasure in doing things: several days 2. Feeling down, depressed, or hopeless: several days 3. Trouble falling or staying asleep, or sleeping too much: several days 4. Feeling tired or having little energy: not at all 5. Poor appetite or overeating: not at all 6. Feeling bad about yourself - or that you are a failure or have let yourself or your family down: not at all 7. Trouble concentrating on things, such as reading the newspaper or watching television: not at all 8. Moving or speaking so slowly that other people could have noticed. Or the opposite - being so fidgety or restless that you have been moving around a lot more than usual: not at all 9. Thoughts that you would be better off or of hurting yourself in some way: not at all Total score: 3 Depression Screening Interpretation: Negative Depression Screening Done: Yes 56478 - PHQ-9 Billing: Yes Source: Developed by Drs. Duarte Coleman, Megan Wilson, George Hernandez and colleagues, with an educational chris from [employer]. Thrive Questionnaire Date Thrive assessed: 11/24/24 I am a: Patient What is your living situation today?: I have a steady place to live Within the past 12 months, did the food you bought not last and you didn't have the money to get more?: Sometimes True Within the past 12 months, did you worry whether your food would run out before you got money to buy more?: Often true Do you have trouble paying for medicines?: No Do you have trouble getting transportation to medical appointments?: No Do you have trouble paying your heating and electricity bill?: Yes Do you have trouble taking care of your child, family member or friend?: No Do you have trouble with day-to-day activities such as bathing, preparing meals, shopping, managing finances, etc.?: No Are you currently unemployed and looking for a job?: Yes Are you interested in more education?: Yes Please select the resources that you would like help with: Housing/Fci, Utilities and Job search/training Currently or been in a relationship where the following occur: I choose not to answer THRIVE Score: 3 AUDIT C Alcohol Use Questionnaire (AUDIT-C) 1. How often do you have a drink containing alcohol?: Never 3. How often do you have six or more drinks on one occasion?: Never Total Score: 0 Score Reviewed/Action Taken: Yes MINDY-7 AMB Questionnaire MINDY-7 Date MINDY - 7 assessed: 11/24/24 Feeling nervous, anxious, or on edge: 0 = Not at all Not being able to stop or control worryin = Several days Worrying too much about different things: 1 = Several days Trouble relaxin = Several days Being so restless that it is hard to sit still: 1 = Several days Becoming easily annoyed or irritable: 1 = Several days Feeling afraid as if something awful might happen: 0 = Not at all Total MINDY-7 score (0-4 normal; 5-9 mild; 10-14 moderate; 15-21 severe): 5 Source: Developed by Drs. Duarte Coleman, Megan Wilson, George Hernandez and colleagues, with an educational chris from [employer]. MINDY-7 Assessment Billing MINDY-7 Assessment Tool: MINDY-7 Assessment 16340 Physical exam (Primary Care) Vital Signs: Last Vital Signs Pulse 74 11/24/24 14:08 BP 130/70 11/24/24 14:08 Pulse Ox 97 11/24/24 14:08 Oxygen Delivery Method Room Air 11/24/24 14:08 BMI result Body Mass Index 24.1 Tobacco/Smoking Status: Tobacco use Status Tobacco use date assessed 11/24/24 11/24/24 14:11 Patient Tobacco Use Status Never used Tobacco 11/24/24 14:11 e-Cigarette/Vaping Use Never Used 11/24/24 14:11 PHQ-9: PHQ-9 Score PHQ-9: Total score 3 11/24/24 14:11 Depression Screening Interpretation: Negative Thrive Assessment: Date of Thrive Assessment Date Thrive assessed 11/24/24 11/24/24 14:11 Currently or been in a relationship where the following occur: I choose not to answer Coding Level of Care Code Est Pt Level 3 (05923) Est Pt Prev Care 40-64y(74008) Diagnoses Encounter for general adult medical examination with abnormal findings Z00.01 Hypertension, essential I10 Anxiety, generalized F41.1 Vitamin D deficiency E55.9 Fibromyalgia M79.7 Type 2 diabetes mellitus with diabetic microalbuminuria, with long-term current use of insulin E11.29; R80.9; Z79.4 Diabetes mellitus complication detail: with diabetic microalbuminuria Diabetes mellitus complication status: with kidney complications Diabetes mellitus long-term insulin use: with long-term use Lipid disorder E78.9 Recurrent major depressive disorder, in partial remission F33.41 Active/Remission status: in partial remission Microalbuminuria due to type 2 diabetes mellitus E11.29; R80.9 Additional Codes MINDY-7 Assessment Billing - MINDY-7 Assessment Tool: MINDY-7 Assessment 43089 ([id number]) PHQ-9 - 52781 - PHQ-9 Billing: Yes ([id number]) Assessment & Plan Assessment & Plan (1) Encounter for general adult medical examination with abnormal findings: Code(s): Z00.01 - Encounter for general adult medical examination with abnormal findings Category: Medical (2) Hypertension, essential: Code(s): I10 - Essential (primary) hypertension Category: Medical (3) Anxiety, generalized: Code(s): F41.1 - Generalized anxiety disorder Category: Medical (4) Vitamin D deficiency: Code(s): E55.9 - Vitamin D deficiency, unspecified Category: Medical (5) Fibromyalgia: Code(s): M79.7 - Fibromyalgia Category: Medical (6) Type 2 diabetes mellitus: Code(s): E11.9 - Type 2 diabetes mellitus without complications Category: Medical Qualifiers: Diabetes mellitus complication detail: with diabetic microalbuminuria Diabetes mellitus complication status: with kidney complications Diabetes mellitus terminal worker insulin use: with long-term use Qualified Code(s): E11.29 - Type 2 diabetes mellitus with other diabetic kidney complication; R80.9 - Proteinuria, unspecified; Z79.4 - alf (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 of insulin (7) Lipid disorder: Code(s): E78.9 - Disorder of lipoprotein metabolism, unspecified Category: Medical (8) Major depression, recurrent: Code(s): F33.9 - Major depressive disorder, recurrent, unspecified Category: Medical Qualifiers: Active/Remission status: in partial remission Qualified Code(s): F33.41 - Major depressive disorder, recurrent, in partial remission (9) Microalbuminuria due to type 2 diabetes mellitus: Code(s): E11.29 - Type 2 diabetes mellitus with other diabetic kidney complication; R80.9 - Proteinuria, unspecified Category: Medical Plan Physical exam appointment - The patient is a 64-year-old female - Hyperlipidemia: Managed with atorvastatin. - Anxiety: Being treated with Lexapro as per current regimen. - Fibromyalgia: gabapentin no longer working, Transition to Lyrica , script sent - blood pressure is stable with amlodipine - lipid disorder: Continue atorvastatin 40 mg - continue vitamin-D supplement - continue metformin for diabetes, hemoglobin A1c 6.5 on Labs done recently Health Maintenance - Mammogram: Patient is due and an order has been placed for the upcoming screening. - Pap smear: Inquiry as to last test, more than three years, recommended follow- up with gynecology. - Colonoscopy: Patient uncertain about previous screening; plan to verify past testing to ensure compliance. Patient Instructions - Begin taking Lyrica for fibromyalgia pain as prescribed. - Return for follow-up in three weeks to assess the effectiveness of medication changes. - Undergo scheduled mammogram and arrange a timeline for colonoscopy screening if necessary. - continue all other medications as prescribed Follow-up 3 weeks starting Lyrica Physical exam 1 year Medications: New pregabalin (Lyrica) 50 mg PO BEDTIME 30 caps 0RF Discontinued gabapentin Discontinued Reason: Doctor's Order 300 mg PO BID 90 days 180 caps 1RF For body aches and pains M79.7 - Fibromyalgia
== END 2024-11-24 14:26 | disposition home or self-care (01) ==
PROVIDERS: PCP Internal Medicine; Visit Provider Internal Medicine
DX: Z00.00 Encounter for general adult medical examination without abnormal findings (principal); E11.29 Type 2 diabetes mellitus with other diabetic kidney complication; Z79.4 Long term (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 of insulin; F33.41 Major depressive disorder, recurrent, in partial remission; I10 Essential (primary) hypertension; F41.1 Generalized anxiety disorder; E55.9 Vitamin D deficiency, unspecified; M79.7 Fibromyalgia; R80.9 Proteinuria, unspecified; E78.9 Disorder of lipoprotein metabolism, unspecified

== ENCOUNTER → 2024-11-24 14:00 | Outpatient (BNVA) | payer OTHER, SELFPAY | PROVIDERS: PCP Internal Medicine; Visit Provider Internal Medicine | DX: Z00.01 Encounter for general adult medical examination with abnormal findings (principal); I10 Essential (primary) hypertension; E78.5 Hyperlipidemia, unspecified; M79.7 Fibromyalgia; F41.1 Generalized anxiety disorder; E55.9 Vitamin D deficiency, unspecified; E11.29 Type 2 diabetes mellitus with other diabetic kidney complication; R80.9 Proteinuria, unspecified; F33.41 Major depressive disorder, recurrent, in partial remission; Z79.4 Long term (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 of insulin; Z79.899 Other long term (current) drug therapy | CPT/HCPCS: 96127; 99212; 99396 ==

== ENCOUNTER 2024-12-07 14:36 | Outpatient (AMB) | payer OTHER, SELFPAY ==
--- NOTE | 2024-12-07 14:44 | MHC.PC.OV ---
Vital Signs 12/07/24 15:08 Height 5 ft 3 in Weight 136 lb 14.513 oz BMI 24.2 BP 110/70 Blood Pressure Location Rt brachial Position Sitting Pulse 77 Pulse Source Pulse Oximeter Intake Visit Reasons: Type II diabetes Intake Note: Patient present today to follow up on Type 2 Diabetes Mellitus. Last Diabetic Eye exam: 09/28/2024 Last Podiatry Visit: Does not see a Breast Surgeon Random Glucose: 90 mg/dl HgA1C: 6.5% 11/16/2024 Driftman Required: Yes Driftman Language: Cert Occupational Therapy Asst Name: Refer to Olga's note Information Interpreted: non-clinical & clinical Accompanied by: Self / Same As Patient Allergies lisinopril Allergy (Unknown, Verified 12/07/24 15:09) rash Tobacco use date assessed: 11/24/24 Dental Screening Dental Screen Date: 11/24/24 HPI HPI Comments History of Present Illness Details This is a 64-year-old female with a past medical history of asthma, chronic pain, needle phobia, depression and anxiety, hypertension, fibromyalgia and hyperlipidemia presenting for diabetic management. family reunification specialist present for visit. She denies family history of type 1 and type 2 diabetes. C-peptide normal 2.47, MINDY and islet cell antibody negative and BNP within normal range 09/03/2024. CGM active 98% Average glucose 154 G OH 7% Target range 76% 0% hypoglycemia 21% high 3% very high She has a pattern of postprandial highs sometimes. Hemoglobin A1c 7% 11/16/2024 down from Hemoglobin a1c over 14% 08/17/2024. Current medication regimen: Metformin ER 500 mg once daily. Lantus discontinued due to hypoglycemia. Hypoglycemia symptoms: Denies further episodes. CGM alerted once in the past two weeks to a high in the 60s, but this was a 1/2 hour after she ate, and she had no symptoms. She rechecked, and her glucose was normal. Hyperglycemia symptoms: none Microvascular complications: neuropathy, nephropathy (microalbuminuria) Macrovascular complications: No known Hypertension: treated with amlodipine and lisinopril. Hyperlipidemia: treated with atorvastatin. ROS: Constitutional: No fevers, chills or night sweats. Eyes: No double vision or loss of vision or current blurry vision. Respiratory: No shortness of breath Cardiovascular: No chest pain Gastrointestinal: No anorexia, nausea, vomiting or diarrhea. No abdominal pain Neurologic: No headache, dizziness, syncope Skin: No open wounds. Physical exam: Constitutional: Alert, in no distress. Neck: Supple, Full range of motion. No lymphadenopathy. No palpable thyroid masses. Respiratory: Clear to auscultation. Cardiovascular: S1 S2 regular. No murmurs. [facility] Medical History Hypoglycemia Controlled type 2 diabetes mellitus Needle phobia Diabetes mellitus with hyperglycemia Fibromyalgia Encounter for general adult medical examination with abnormal findings Anxiety, generalized Vitamin D deficiency Back spasm Hypertension, essential Surgical History History of abdominal hysterectomy Family History Father Parkinson disease Mother Osteoporosis HTN (hypertension) Maternal Grandmother Cancer of kidney Maternal Grandfather Stroke Brother No problems noted. Brother No problems noted. Brother No problems noted. Sister No problems noted. Sister No problems noted. Sister No problems noted. Son No problems noted. Son No problems noted. Daughter No problems noted. Social History Housing: Apartment Alcohol intake: never Patient Tobacco Use Status: Never used Tobacco e-Cigarette/Vaping Use: Never Used service: No Current occupational status: employed Cognitive needs: No Hearing needs: No Vision needs: No Questionnaire Thrive Questionnaire Date Thrive assessed: 11/21/24 I am a: Patient What is your living situation today?: I have a steady place to live Within the past 12 months, did the food you bought not last and you didn't have the money to get more?: Sometimes True Within the past 12 months, did you worry whether your food would run out before you got money to buy more?: Often true Do you have trouble paying for medicines?: No Do you have trouble getting transportation to medical appointments?: No Do you have trouble paying your heating and electricity bill?: Yes Do you have trouble taking care of your child, family member or friend?: No Do you have trouble with day-to-day activities such as bathing, preparing meals, shopping, managing finances, etc.?: No Are you currently unemployed and looking for a job?: Yes Are you interested in more education?: Yes Currently or been in a relationship where the following occur: I choose not to answer THRIVE Score: 3 MINDY-7 AMB Questionnaire MINDY-7 Date MINDY - 7 assessed: 11/24/24 Source: Developed by Drs. Duarte Coleman, Megan Wilson, George Hernandez and colleagues, with an educational chris from [employer]. Physical exam (Primary Care) Vital Signs: Last Vital Signs Pulse 77 12/07/24 15:08 BP 110/70 12/07/24 15:08 BMI result Body Mass Index 24.2 Tobacco/Smoking Status: Tobacco use Status Tobacco use date assessed 11/24/24 12/07/24 14:44 Patient Tobacco Use Status Never used Tobacco 12/07/24 14:44 e-Cigarette/Vaping Use Never Used 12/07/24 14:44 Thrive Assessment: Date of Thrive Assessment Date Thrive assessed 11/21/24 12/07/24 14:44 Currently or been in a relationship where the following occur: I choose not to answer Results Reviewed Results Reviewed: Laboratory Last Values Glucose (Clinic) 90 mg/dL (60-115) 12/07/24 15:16 Coding Level of Care Code Est Pt Level 4 (67616) Complex EM visit Add On G2211 Diagnoses Controlled type 2 diabetes mellitus with microalbuminuria, without long-term current use of insulin E11.29; R80.9 Diabetes mellitus long-term insulin use: without long-term use Diabetes mellitus complication status: with kidney complications Diabetes mellitus complication detail: with diabetic microalbuminuria Assessment & Plan Assessment & Plan (1) Controlled type 2 diabetes mellitus: Code(s): E11.9 - Type 2 diabetes mellitus without complications Category: Medical Qualifiers: Diabetes mellitus laborer marine terminal insulin use: without laborer marine terminal use Diabetes mellitus complication status: with kidney complications Diabetes mellitus complication detail: with diabetic microalbuminuria Qualified Code(s): E11.29 - Type 2 diabetes mellitus with other diabetic kidney complication; R80.9 - Proteinuria, unspecified Plan In summary this is a 64-year-old female with controlled Type II diabetes. Continue metformin ER 500 mg once daily. She had hypoglycemia frequently on higher dosages recently. Her Lantus was also discontinued due to hypoglycemia. To combat postprandial highs hyperglycemia we discussed dietary modification. She has seen the dietitian. She will implement some of these recommendations. Reviewed treatment of hypo and hyperglycemia. She has glucose tablets. If you experience low blood sugar, treat this by eating a chewable fruit candy like skittles or jelly beans (about 8 pieces), 4 ounces (1/2 cup) of fruit juice (not diet), 1 tablespoon of honey or 4 glucose tablets. If your blood sugar is under 50, take double the amount of one of the above. Recheck your blood sugar in 15 minutes. Follow up in 3 months for type 2 diabetes.
[2024-12-07 15:08] VITALS: BP 110/70; PULSE 77; BMI 24.2
[2024-12-07 15:20] LABS: Glucose, Whole Blood 90 mg/dL (60-115)
--- OUTSIDE RECORDS SUMMARY | 2024-12-07 15:29 | XMS_ITS | Clinical Summary ---
Author Organization [facility] ity Address [address] [place] [address] Care Team Providers Care Strip Feeder Name Role Phone Gila Bragg MD Primary Care Provider [phone] Social History Tobacco Use Types Packs/Day Years Used Date Smoking Tobacco: Never Assessed Sex and Gender Information Value Date Recorded Sex Assigned at Not on file Gender Identity Not on file Sexual Orientation Not on file Plan of Treatment Health Maintenance Due Date Last Done Comments Breast Cancer Screening 1962 DTaP,Tdap,and Td Vaccines (1 - Tdap) 1981 Cervical Cancer Screening: P ap Smear 1983 Zoster Vaccines (1 of 2) 2012 Colorectal Cancer Screening: Colonoscopy 10/07/2022 Depression Screening 10/07/2022 HIV Screening 10/07/2022 Hepatitis C Screening 10/07/2022 Social Influencers of Health Screening 10/07/2022 COVID-19 Vaccine ( - 2023-2 5 season) 2024 Influenza Vaccine (#1) 2024 RSV Immunization Patients 60 + Years Old (1 - 1-dose 75+ series) 2037 HIB Vaccines Aged Out No longer eligi ble based on patient's age to complete this topic HPV Vaccines Aged Out No longer eligi ble based on patient's age to complete this topic Hepatitis A Vaccines Aged Out No long er eligible based on patient's age to complete this topic Hepatitis B Vaccines Aged Out No long er eligible based on patient's age to complete this topic IPV Vaccines Aged Out No longer eligi ble based on patient's age to complete this topic MMR Vaccines Aged Out No longer eligi ble based on patient's age to complete this topic Meningococcal ACWY Vaccine Aged Out N o longer eligible based on patient's age to complete this topic Pneumococcal Vaccine: Pediat rics (0 to 5 Years) and At-Risk Patients (6 to 64 Years) Aged Out No longer eligible b ased on patient's age to complete this topic RSV Immunization Patients Un velasquez 20 months Aged Out No longer eligible b ased on patient's age to complete this topic Varicella Vaccines Aged Out No longer eligible based on patient's age to complete this topic Care Teams Strip Feeder Relationship Specialty Start Date End Date Gila Bragg MD [address] [place] [address] PCP - General Internal Medicine 06/21/21
== END 2024-12-07 15:50 | disposition home or self-care (01) ==
PROVIDERS: PCP Internal Medicine; Visit Provider Physician Assistant Medical
DX: E11.29 Type 2 diabetes mellitus with other diabetic kidney complication (principal); R80.9 Proteinuria, unspecified

== ENCOUNTER → 2024-12-07 14:36 | Outpatient (BNVA) | payer OTHER, SELFPAY | PROVIDERS: PCP Internal Medicine; Visit Provider Physician Assistant Medical | DX: E11.29 Type 2 diabetes mellitus with other diabetic kidney complication (principal); R80.9 Proteinuria, unspecified | CPT/HCPCS: 82947; 99212 ==

== ENCOUNTER 2024-12-08 07:40 | Outpatient (REF) | payer OTHER, SELFPAY ==
--- OUTSIDE RECORDS SUMMARY | 2024-12-08 07:43 | XMS_ITS | Clinical Summary ---
Author Organization [facility] Address [address] [place] [address] Care Team Providers Care Telecommunications Field Engineer Name Role Phone Unavailable Primary Care Provider Unavailabl e Social History Tobacco Use Types Packs/Day Years Used Date Smoking Tobacco: Never Assessed Comments Unknown Sex and Gender Information Value Date Recorded Sex Assigned at Female 09/09/2022 10:20 AM EDT Legal Sex Female 10:20 AM EDT Gender Identity Female 09/09/2022 10:20 AM EDT Sexual Orientation Straight 09/09/2022 10 :20 AM EDT Plan of Treatment Upcoming Encounters Date Type Department Care Team (Late st Contact Info) Description 12/15/2024 1:00 PM EST Office Visit [facility] [address] [place] [address] Deann Beard Health Maintenance Due Date Last Done Comments CT Colonography 1962 Colonoscopy 1962 Colorectal Cancer Screening 1962 Dental Prophylaxis 1962 Depression Screening 1962 FIT DNA/Cologuard 1962 FIT 1962 FOBT 1962 HIV Screening 1962 SDOH Screening 1962 Sigmoidoscopy 1962 Alcohol/Substance Use Screening 1974 Tobacco Screening 1974 Hepatitis C Screening 1980 DTaP/Tdap/Td Vaccines (1 - Tdap) 1981 Pap Smear 1983 Cervical Cancer Screening 1992 HPV/Cotest 1992 Mammogram 2002 Zoster Vaccines (1 of 2) 2012 Dental Oral Exam 04/02/2022 10/02/2021 Dental X-Ray: Bitewings 10/03/2022 10/02/2021 COVID-19 Vaccine ( season) 2024 09/20/2021, 01/08/2021, 12/18/2020 Dental X-Ray: Full Mouth 10/03/2024 10/02/2021 RSV Patients and Patients Aged 60 years or older (1 - 1-dose 75+ series) 2037 Influenza Vaccine Completed 09/12/2024, , 07/21/2020, Additional history exists Pneumococcal Vaccine: Pediatrics (0 to 5 Years) and At-Risk Patients (6 to 49) Years) Aged Out 09/12/2024, 01/25/2014 No longer eligibl e based on patient's age to complete this topic HIB Vaccines Aged Out No longer eligi [...] patient's age to complete this topic Meningococcal Vaccine Aged Out No michael brandon eligible based on patient's age to complete this topic RSV under 20 months Aged Out No longe r eligible based on patient's age to complete this topic Rotavirus Vaccines Aged Out No longer eligible based on patient's age to complete this topic Procedures Procedure Name Priority Date/Time Associated Diagnosis Comments DIAGNOSTIC - DIAGNOSTIC IMAGING - INTRAORAL - COMPREHENSIVE SERIES OF RADIOGRAPHIC IMAGES Routine 10/02/2021 12:00 AM EST COMPREHENSIVE ORAL EVALUATION - NEW OR ESTABLISHED PATIENT Routine 10/02/2021 12:00 AM EST from Last 3 Months or Most Recently Relevant to Health Maintenance Insurance DENTAL - [facility] PARTIAL (MEDICAID)
--- OUTSIDE RECORDS SUMMARY | 2024-12-08 07:43 | XMS_ITS | Clinical Summary ---
Author Organization [facility] ity Address [address] [place] [address] Care Team Providers Care Etl Analyst Developer Name Role Phone Gila Bragg MD Primary Care Provider [phone] Social History Tobacco Use Types Packs/Day Years [...] age to complete this topic Care Teams Etl Analyst Developer Relationship Specialty Start Date End Date Gila Bragg MD [address] [place] [address] PCP - General Internal Medicine 06/21/21
== END 2024-12-08 07:41 | disposition home or self-care (01) ==
LOC: HO.MAMMO 07:40
PROVIDERS: PCP Internal Medicine; Visit Provider Internal Medicine
DX: Z12.31 Encounter for screening mammogram for malignant neoplasm of breast (principal)
CPT/HCPCS: 77063; 77067

== ENCOUNTER → 2024-12-08 08:00 | Outpatient (BNV) | payer OTHER, SELFPAY | PROVIDERS: PCP Internal Medicine; Visit Provider Internal Medicine | DX: Z12.31 Encounter for screening mammogram for malignant neoplasm of breast (principal) | CPT/HCPCS: 77063; 77067 ==

== ENCOUNTER 2024-12-21 13:09 | Outpatient (AMB) | payer OTHER, SELFPAY ==
[2024-12-21 13:12] VITALS: BP 112/70; PULSE 76; TEMP 36.7; O2SAT 97; BMI 24.6
--- NOTE | 2024-12-21 13:12 | MHC.PC.OV ---
Vital Signs 12/21/24 13:12 Height 5 ft 3 in Weight 139 lb BMI 24.6 BP 112/70 Blood Pressure Location Rt brachial Position Sitting Pulse 76 Pulse Source Pulse Oximeter Temp 98.0 F Temp Source Oral Pulse Oximetry (%) 97 Oxygen Delivery Method Room Air Intake Visit Reasons: 3 weeks follow up Allergies lisinopril Allergy (Unknown, Verified 12/21/24 13:12) rash gabapentin Adverse Reaction (Mild, Verified 12/21/24 14:40) Unable to control pain Medication List - Last Reconciled 12/21/24 by Gila Bragg MD albuterol sulfate 0.63 mg (3 mL) inhalation QID PRN alcohol swabs (Alcohol Pads) 1 pad topical .three times per day amlodipine 10 mg PO DAILY aspirin (Adult Low Dose Aspirin) 81 mg PO DAILY atorvastatin 40 mg PO BEDTIME [Blood pressure monitor As directed] blood-glucose meter (OrthoSensoruch Verio Flex Meter) As directed blood-glucose meter,continuous (FreeStyle Becky 3 [place]) use as directed to monitor blood glucose continuously blood-glucose sensor (FreeStyle Becky 3 Plus Sensor device) apply new sensor every 14 days to monitor glucose continuously ergocalciferol (vitamin D2) 2,000 units PO DAILY 90 days escitalopram oxalate 10 mg PO DAILY 90 days glucose (Dex4 Glucose) 16 grams (4 x 4 gram) PO Q15M PRN lancets (GreenWattTouch Delica Plus Lancet) Use lancet 3 times daily with meter to check blood glucose. lidocaine 5% (Lidoderm) 1 patch topical DAILY losartan 25 mg PO DAILY metformin ER 500 mg PO DAILY nut.tx.gluc.intol,lac-free,soy (Glucerna oral liquid) 1 ea PO DAILY 28 days pregabalin (Lyrica) 50 mg PO BEDTIME [strips one touch Verio Use 1 strip 3 times daily to check blood glucose.] [MicrolandraEmpathy Marketing machine As directed] Tobacco use date assessed: 11/24/24 Dental Screening Dental Screen Date: 11/24/24 HPI 3 weeks follow up HPI Details - The patient is a 64-year-old female came in for three-month follow-up appointment after starting Lyrica for fibromyalgia Patient is feeling better, she is currently on 50 mg dose I am increasing to 75 mg as she continued to complain of pain upper back - Hyperlipidemia: Managed with atorvastatin. - Anxiety: Being treated with Lexapro as per current regimen. - blood pressure is stable with amlodipine - lipid disorder: Continue atorvastatin 40 mg - continue vitamin-D supplement - continue metformin for diabetes, hemoglobin A1c 6.5 on Labs done recently - B12 level is very high, patient was advised to stop taking it daily she may continue once or twice a week Review of Systems - General: No fever no chills - Neurological: No headaches no dizziness - Ear nose throat: No sore throat no hearing difficulty no ear pain - Cardiovascular: No syncope, no chest pain, no palpitations - Gastrointestinal: No nausea vomiting or diarrhea - Endocrine: No polyuria polydipsia no heat intolerance - Genitourinary: No dysuria , no blood in urine Physical Exam - General: No acute distress - HEENT: No acute findings - Neck: Supple pain is located over left trapezius muscle insertion cervical portion with palpation - Respiratory system: Able to talk in full sentences, no audible wheeze - cardiovascular: S1-S2 regular in rate and rhythm - Gastrointestinal: No pain - Extremities: No new findings - ENERGY MANAGEMENT SPECIALIST: Alert awake oriented x3 motor sensory intact - Skin: Normal turgor [facility] Medical History Hypoglycemia Controlled type 2 diabetes mellitus Needle phobia Diabetes mellitus with hyperglycemia Fibromyalgia Encounter for general adult medical examination with abnormal findings Anxiety, generalized Vitamin D deficiency Back spasm Hypertension, essential Surgical History History of abdominal hysterectomy Family History Father Parkinson disease Mother Osteoporosis HTN (hypertension) Maternal Grandmother Cancer of kidney Maternal Grandfather Stroke Brother No problems noted. Brother No problems noted. Brother No problems noted. Sister No problems noted. Sister No problems noted. Sister No problems noted. Son No problems noted. Son No problems noted. Daughter No problems noted. Social History Housing: Apartment Alcohol intake: never Patient Tobacco Use Status: Never used Tobacco e-Cigarette/Vaping Use: Never Used service: No Current occupational status: employed Cognitive needs: No Hearing needs: No Vision needs: No Questionnaire PHQ-9 Over the last 2 weeks, how often have you been bothered by any of the following problems? 1. Little interest or pleasure in doing things: not at all 2. Feeling down, depressed, or hopeless: not at all 3. Trouble falling or staying asleep, or sleeping too much: not at all 4. Feeling tired or having little energy: not at all 5. Poor appetite or overeating: not at all 6. Feeling bad about yourself - or that you are a failure or have let yourself or your family down: not at all 7. Trouble concentrating on things, such as reading the newspaper or watching television: several days 8. Moving or speaking so slowly that other people could have noticed. Or the opposite - being so fidgety or restless that you have been moving around a lot more than usual: not at all 9. Thoughts that you would be better off or of hurting yourself in some way: not at all Total score: 1 Depression Screening Interpretation: Negative Depression Screening Done: Yes [id number] - PHQ-9 Billing: Yes Source: Developed by Drs. Duarte Coleman, Megan Wilson, George Hernandez and colleagues, with an educational chris from [employer]. Thrive Questionnaire Date Thrive assessed: 11/21/24 I am a: Patient What is your living situation today?: I have a steady place to live Within the past 12 months, did the food you bought not last and you didn't have the money to get more?: Sometimes True Within the past 12 months, did you worry whether your food would run out before you got money to buy more?: Often true Do you have trouble paying for medicines?: No Do you have trouble getting transportation to medical appointments?: No Do you have trouble paying your heating and electricity bill?: Yes Do you have trouble taking care of your child, family member or friend?: No Do you have trouble with day-to-day activities such as bathing, preparing meals, shopping, managing finances, etc.?: No Are you currently unemployed and looking for a job?: Yes Are you interested in more education?: Yes Currently or been in a relationship where the following occur: I choose not to answer THRIVE Score: 3 MINDY-7 AMB Questionnaire MINDY-7 Date MIDNY - 7 assessed: 11/24/24 Source: Developed by Drs. Duarte Coleman, Megan Wilson, George Hernandez and colleagues, with an educational chris from [employer]. Physical exam (Primary Care) Vital Signs: Last Vital Signs Temp 98.0 F 12/21/24 13:12 Pulse 76 12/21/24 13:12 BP 112/70 12/21/24 13:12 Pulse Ox 97 12/21/24 13:12 Oxygen Delivery Method Room Air 12/21/24 13:12 BMI result Body Mass Index 24.6 Tobacco/Smoking Status: Tobacco use Status Tobacco use date assessed 11/24/24 12/21/24 13:15 Patient Tobacco Use Status Never used Tobacco 12/21/24 13:15 e-Cigarette/Vaping Use Never Used 12/21/24 13:15 Depression Screening Interpretation: Negative Thrive Assessment: Date of Thrive Assessment Date Thrive assessed 11/21/24 12/21/24 13:15 Currently or been in a relationship where the following occur: I choose not to answer Coding Level of Care Code Est Pt Level 4 (43410) Diagnoses Fibromyalgia M79.7 Hypertension, essential I10 Back spasm M62.830 Vitamin D deficiency E55.9 Type 1 diabetes mellitus with diabetic autonomic neuropathy E10.43 Diabetes mellitus complication status: with neurologic complications Diabetes mellitus complication detail: with autonomic neuropathy terminal 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 (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 of insulin Z79.4 Lipid disorder E78.9 Recurrent major depressive disorder, in partial remission F33.41 Active/Remission status: in partial remission Chronic pain syndrome G89.4 Microalbuminuria due to type 2 diabetes mellitus E11.29; R80.9 Additional Codes PHQ-9 - 37226 - PHQ-9 Billing: Yes ([id number]) Assessment & Plan Assessment & Plan (1) Fibromyalgia: Code(s): M79.7 - Fibromyalgia Category: Medical (2) Hypertension, essential: Code(s): I10 - Essential (primary) hypertension Category: Medical (3) Back spasm: Code(s): M62.830 - Muscle spasm of back Category: Medical (4) Vitamin D deficiency: Code(s): E55.9 - Vitamin D deficiency, unspecified Category: Medical (5) Insulin dependent type 1 diabetes mellitus: Code(s): E10.9 - Type 1 diabetes mellitus without complications Category: Medical Qualifiers: Diabetes mellitus complication status: with neurologic complications Diabetes mellitus complication detail: with autonomic neuropathy Qualified Code(s): E10.43 - Type 1 diabetes mellitus with diabetic autonomic (poly)neuropathy (6) terminal 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 (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 of insulin: Code(s): Z79.4 - terminal 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 (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 of insulin Category: Medical (7) Lipid disorder: Code(s): E78.9 - Disorder of lipoprotein metabolism, unspecified Category: Medical (8) Major depression, recurrent: Code(s): F33.9 - Major depressive disorder, recurrent, unspecified Category: Medical Qualifiers: Active/Remission status: in partial remission Qualified Code(s): F33.41 - Major depressive disorder, recurrent, in partial remission (9) Chronic pain syndrome: Code(s): G89.4 - Chronic pain syndrome Category: Medical (10) Microalbuminuria due to type 2 diabetes mellitus: Code(s): E11.29 - Type 2 diabetes mellitus with other diabetic kidney complication; R80.9 - Proteinuria, unspecified Category: Medical Plan - The patient is a 64-year-old female came in for three-month follow-up appointment after starting Lyrica for fibromyalgia Patient is feeling better, she is currently on 50 mg dose I am increasing to 75 mg as she continued to complain of pain upper back - Hyperlipidemia: Managed with atorvastatin. - Anxiety: Being treated with Lexapro as per current regimen. - blood pressure is stable with amlodipine - lipid disorder: Continue atorvastatin 40 mg - continue vitamin-D supplement - continue metformin for diabetes, hemoglobin A1c 6.5 on Labs done recently - B12 level is very high, patient was advised to stop taking it daily she may continue once or twice a week Medications: New cyclobenzaprine 10 mg PO BEDTIME PRN 30 tabs 0RF muscle spasm Changed From pregabalin (Lyrica) 50 mg PO BEDTIME 30 caps 0RF To pregabalin 75 mg PO BEDTIME 90 days 90 caps 0RF
--- OUTSIDE RECORDS SUMMARY | 2024-12-21 14:17 | XMS_ITS | Clinical Summary ---
Author Organization [facility] Address [address] [place] [address] Phone Care Team Providers Care Financial Foundations Representative Name Role Phone Gila Bragg MD Primary Care Provider [phone] Allergies No known active allergies Medications cyclobenzaprine (FLEXERIL) 10 mg tablet Take 1 tablet (10 mg total) by mouth 2 (two) times a day if needed for muscle spasms for up to 5 days. 10 tablet 12/14/2024 Active ibuprofen (ADVIL,MOTRIN) 600 mg tablet Take 1 tablet (600 mg total) by mouth every 8 (eight) hours if needed for mild pain (for pain) for up to 5 days. 15 tablet 12/14/2024 Encounters Date Type Department Care Team Description 12/14/2024 8:55 AM EST - 12/14/2024 9:44 AM EST Emergency [facility] Emergency [address] [place] [address] Strain of neck muscle, initial encounter (Primary Dx) Discharge Disposition: Home or Self Care from Last 3 Months Medical History Medical History Date Comments Diabetes mellitus (CMS/HCC) Fibromyalgia Social History Tobacco Use Types Packs/Day Years Used Date Smoking Tobacco: Never Assessed Comments Unknown Sex and Gender Information Value Date Recorded Sex Assigned at Female 12/14/2024 9:06 AM EST Legal Sex Female 9:24 AM EST Gender Identity Female 12/14/2024 9:06 AM EST Sexual Orientation Straight 12/14/2024 9: 06 AM EST Obstetrics History Last Filed Vital Signs Vital Sign Reading Time Taken Comments Blood Pressure 132/75 12/14/2024 7:48 AM EST Pulse 70 12/14/2024 7:48 AM EST Temperature 37.2 ??C (98.9 ??F) 12/14/2024 7:48 AM ES T Respiratory Rate 16 12/14/2024 7:48 AM EST Oxygen Saturation 98% 12/14/2024 7:48 AM EST Inhaled Oxygen Concentration - - Weight 62.1 kg (137 lb) 12/14/2024 7:48 AM EST Height 160 cm (5' 3 ) 12/14/2024 7:48 AM EST Body Mass Index 24.27 12/14/2024 7:48 AM EST Plan of Treatment Health Maintenance Due Date Last Done Comments Breast Cancer Screening 1960 DTaP,Tdap,and Td Vaccines (1 - Tdap) 1969 Cervical Cancer Screening: P ap Smear 1983 Pneumococcal Vaccine: 50+ Ye ars (1 of 1 - PCV) 2012 Zoster Vaccines (1 of 2) 2012 Colorectal [...] patient's age to complete this topic Meningococcal B Vacine Aged Out No lo nger eligible based on patient's age to complete [...] Procedure Name Priority Date/Time Associated Diagnosis Comments ECG 12-LEAD STAT 12/14/2024 7:55 AM EST ECG ANNOTATED 12/14/2024 from Last 3 Months Results * ECG 12 lead (12/14/2024 7:55 AM EST) Ventricular Rate ECG 71 BPM GEMUSE Atrial Rate 71 BPM GEMUSE P-R Interval 160 ms GEMUSE QRS Duration 88 ms GEMUSE Q-T Interval 400 ms GEMUSE QTc 434 ms GEMUSE P Wave [place] 57 degrees GEMUSE R [place] 48 degrees GEMUSE T [place] 59 degrees GEMUSE ECG Interpretation Normal sinus rhythm Normal ECG When compared with ECG of 27-JUN-2024 10:27, No significant change was found Confirmed by Matthew LOPEZ JAMES ([id number]) on 12/14/2024 12:50:26 PM GEMUSE 12/14/2024 7:55 AM EST 12/14/2024 12:50 PM EST Christine ANAND ECG ORDERABLES Final Re sult GEMUSE * ECG-Annotated (12/14/2024) Provider Onbase ECG ORDERABLES Final Result from Last 3 [place] [phone] [facility] Care Teams Financial Foundations Representative Relationship Specialty Start Date End Date Gila Bragg MD [address] [place] [address] PCP - General Internal Medicine 06/21/21
--- OUTSIDE RECORDS SUMMARY | 2024-12-21 14:17 | XMS_ITS | Encounter Summary ---
Author Organization [facility] Address [address] [place] [address] Care Team Providers Care Balance Engineer Name Role Phone Gila Bragg MD Primary Care Provider [phone] Reason for Visit * Reason Comments Neck Pain Encounter Details Date Type Department Care Team (Late st Contact Info) Description 12/14/2024 8:55 AM EST - 12/14/2024 9:[address] [facility] Emergency [address] [place] [address] Strain of neck muscle, initial encounter (Primary Dx) Discharge Disposition: Home or Self Care Social History Tobacco Use Types Packs/Day Years Used Date Smoking Tobacco: Never Assessed Comments Unknown Sex and Gender Information Value Date Recorded Sex Assigned at Female 12/14/2024 9:06 AM EST Legal Sex Female 9:24 AM EST Gender Identity Female 12/14/2024 9:06 AM EST Sexual Orientation Straight 12/14/2024 9: 06 AM EST documented as of this encounter Last Filed Vital Signs Vital Sign Reading [...] Mass Index 24.27 12/14/2024 7:48 AM EST documented in this encounter Discharge Instructions * Attachments The following attachments cannot be sent through Care Everywhere. * Cervical Strain (Gambian) documented in this encounter Medications at Time of Discharge cyclobenzaprine (FLEXERIL) 10 mg tablet Take 1 tablet (10 mg total) by mouth 2 (two) times a day if needed for muscle spasms for up to 5 days. 10 tablet 12/14/2024 ibuprofen (ADVIL,MOTRIN) 600 mg tablet Take 1 tablet (600 mg total) by mouth every 8 (eight) hours if needed for mild pain (for pain) for up to 5 days. 15 tablet 12/14/2024 12/19/2024 documented as of this encounter Ordered Prescriptions Prescription Sig Dispense Quantity Refills Last Filled Start Date End Date cyclobenzaprine (FLEXERIL) 10 mg tablet Take 1 tablet (10 mg total) by mouth 2 (two) times a day if needed for muscle spasms for up to 5 days. 10 tablet 12/14/2024 ibuprofen (ADVIL,MOTRIN) 600 mg tablet Take 1 tablet (600 mg total) by mouth every 8 (eight) hours if needed for mild pain (for pain) for up to 5 days. 15 tablet 12/14/2024 12/19/2024 documented in this encounter Discharge Disposition Disposition Code Departure Means Destination Comment s Home or Self Care documented in this encounter Progress Notes * Elaine Finley RN - 12/14/2024 7:48 AM EST Patient reports left neck/shoulder pain since last night that is described as a squeeze. Patient reports sharp pain when she moves or when she touches it. Denies chest pain or arm pain. * CHENG Saunders - 12/14/2024 7:39 AM EST Emergency Medicine Note Patient Name: Tran Alvarez Initial Evaluation: 12/14/2024 : 1960 Patient's PCP: Gila Bragg MD Emergency Physician: CHENG Saunders History of Present Illness Chief Complaint: Chief Complaint Patient presents with Neck Pain HPI: 64-year-old male with history of diabetes presents with left-sided neck pain that radiates towards the shoulder since last night. Not tried any medication thus far. She denies any trauma/injury,chest pain, shortness of breath, rash, skin changes, fevers. ROS: I have performed a ROS with the pertinent positives and negatives documented in the history ofpresent illness. Previous History Past Medical History: Diagnosis Date Diabetes mellitus (CMS/HCC) Fibromyalgia No past surgical history on file. No family history on file. has No Known Allergies. No current facility-administered medications on file prior to encounter. No current outpatient medications on file prior to encounter. Physical Exam ED Triage Vitals [12/14/24 0748] Temp Heart Rate Resp BP 37.2 ??C (98.9 ??F) 70 16 132/75 SpO2 Temp Source Heart Rate Source Patient Position 98 % Oral -- -- BP Location FiO2 (%) -- -- General: awake, calm, cooperative, No apparent distress Skin: warm, dry, No diaphoresis Eyes: PERRLA, EOMI ENT: mucosa moist, throat is clear, no lymphadenopathy, TMs clear bilaterally Neck: soft/supple, full range of motion, no nuchal rigidity Respiratory: clear to auscultation Cardiovascular: regular rate and rhythm, plus radial pulses equal and symmetrical bilateral, no peripheral edema Gastrointestinal: soft nontender, normal active bowel sounds, no hepatomegaly Musculoskeletal: no calf tenderness, no pedal edema, appropriate range of motion in upper and lowerextremities. Left trapezius muscular tenderness Neurological: alert and oriented X3, no focal deficit, DTR intact, agitation throughout bilateral upper extremities, cranial nerves III through XII intact, strength 5/5 bilateral hands, 5/5 strength upper and lower extremities Psychiatric: stable mood and affect Results Labs Reviewed - No data to display Abnormal Labs Reviewed - No data to display No orders to display I have discussed the incidental/abnormal imaging and/or lab abnormalities with the patient and haveinstructed them the need for further evaluation and workup with their primary care doctor. The laboratory results, imaging results and other diagnostic exam results were reviewed in the EMR. EKG Interpretation Normal sinus rhythm at 71 bpm. No ischemic changes. Critical Care Time None ? Medical Decision Making MDM as described in ED course below Medications ketorolac (TORADOL) injection 15 mg (15 mg intramuscular Given 12/14/24 0924) ED Course as of 12/14/24 1619 Tue Dec 14, 2024 0915 Patient seen and evaluated. History and physical exam performed. On exam pain seems very likely musculoskeletal and most likely muscular spasm/strain. Pain with movement/palpation to the trapezius muscle. Will proceed with dose of Toradol here. Discussed anti-inflammatories, muscle relaxers, outpatient follow- up. EKG was done in triage without any ischemic findings. [AT] ED Course User Index [AT] CHENG Saunders Clinical Impressions as of 12/14/24 1619 Strain of neck muscle, initial encounter Procedures Procedures Differential Diagnosis Muscle strain/spasm Degenerative joint disease Low suspicion atypical ACS Diagnosis 1. Strain of neck muscle, initial encounter Disposition Discharge Condition: Stable ED Prescriptions Medication Sig Dispense Start Date End Date Auth. Provider cyclobenzaprine (FLEXERIL) 10 mg tablet Take 1 tablet (10 mg total) by mouth 2 (two) times a day ifneeded for muscle spasms for up to 5 days. 10 tablet 12/14/2024 12/19/2024 CHENG Saunders ibuprofen (ADVIL,MOTRIN) 600 mg tablet Take 1 tablet (600 mg total) by mouth every 8 (eight) hours if needed for mild pain (for pain) for up to 5 days. 15 tablet 12/14/2024 12/19/2024 CHENG Saunders Physician Attestation CHENG Saunders 12/14/24 0925 CHENG Saunders 12/14/24 161 Cosigned by Nash Oh MD at 12/15/2024 12:11 PM EST documented in this encounter Plan of Treatment Not on file documented as of this encounter Procedures Procedure Name Priority Date/Time Associated Diagnosis Comments ECG 12-LEAD STAT 12/14/2024 7:55 AM EST ECG ANNOTATED 12/14/2024 documented in this encounter Results * ECG 12 lead (12/14/2024 7:55 AM EST) Ventricular Rate ECG 71 BPM GEMUSE Atrial Rate 71 BPM GEMUSE P-R Interval 160 ms GEMUSE QRS Duration 88 ms GEMUSE Q-T Interval 400 ms GEMUSE QTc 434 ms GEMUSE P Wave [place] 57 degrees GEMUSE R [place] 48 degrees GEMUSE T [place] 59 degrees GEMUSE ECG Interpretation Normal sinus rhythm Normal ECG When compared with ECG of 27-JUN-2024 10:27, No significant change was found Confirmed by Matthew LOPEZ JAMES ([id number]) on 12/14/2024 12:50:26 PM GEMUSE 12/14/2024 7:55 AM EST 12/14/2024 12:50 PM EST Christine ANAND ECG ORDERABLES Final Re sult GEMUSE * ECG-Annotated (12/14/2024) Provider Onbase ECG ORDERABLES Final Result documented in this encounter Visit Diagnoses Diagnosis Strain of neck muscle, initial encounter- Primary documented in this encounter Administered Medications Inactive Administered Medications - up to 3 most recent administrations Medication Order MAR Action Action Date Dose Rate Site ketorolac (TORADOL) injection 15 mg 15 mg, intramuscular, Once, On Fri12/14/24 at 0916, For 1 dose Given 12/14/2024 9:24 AM EST 15 mg Left Deltoid documented in this encounter Active and Recently Administered Medications Times are shown in EST. Scheduled Medication Order 12/12/2024 12/13/2024 12/14/2024 ketorolac (TORADOL) injection 15 mg (COMPLETED) 15 mg, intramuscular, Once, On Fri12/14/24 at 0916, For 1 dose 0924 (Given - Provid er: Mahnaz Lundberg RN) documented in this encounter Orders Medications Ordered That Willian ht Not Have Been Administered Count Last Ordered Date First Ordered Date ketorolac (TORADOL) injection 15 mg 1 12/14 documented in this encounter Care Teams Balance Engineer Relationship Specialty Start Date End Date Gila Bragg MD [address] [place] [address] PCP - General Internal Medicine 06/21/21 documented as of this encounter
== END 2024-12-21 13:29 | disposition home or self-care (01) ==
PROVIDERS: PCP Internal Medicine; Visit Provider Internal Medicine
DX: E11.29 Type 2 diabetes mellitus with other diabetic kidney complication (principal); Z79.4 Long term (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 of insulin; F33.41 Major depressive disorder, recurrent, in partial remission; M79.7 Fibromyalgia; I10 Essential (primary) hypertension; M62.830 Muscle spasm of back; E55.9 Vitamin D deficiency, unspecified; E78.9 Disorder of lipoprotein metabolism, unspecified; G89.4 Chronic pain syndrome; R80.9 Proteinuria, unspecified

== ENCOUNTER → 2024-12-21 13:09 | Outpatient (BNVA) | payer OTHER, SELFPAY | PROVIDERS: PCP Internal Medicine; Visit Provider Internal Medicine | DX: M79.7 Fibromyalgia (principal); I10 Essential (primary) hypertension; M62.830 Muscle spasm of back; E55.9 Vitamin D deficiency, unspecified; E10.43 Type 1 diabetes mellitus with diabetic autonomic (poly)neuropathy; E78.9 Disorder of lipoprotein metabolism, unspecified; F33.41 Major depressive disorder, recurrent, in partial remission; G89.4 Chronic pain syndrome; E10.29 Type 1 diabetes mellitus with other diabetic kidney complication; R80.9 Proteinuria, unspecified; Z79.4 Long term (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 of insulin | CPT/HCPCS: 96127; 99212 ==

== ENCOUNTER 2024-12-28 14:05 | Outpatient (AMB) | payer OTHER, SELFPAY ==
--- NOTE | 2024-12-28 14:31 | A.OFFVIS_ITS ---
Intake Intake Visit Reasons: dm Contact Lens Cutter Required: Yes Contact Lens Cutter Language: Tilt Tray Driver Name: Cme [id number] Accompanied by: Self / Same As Patient Allergies lisinopril Allergy (Unknown, Verified 12/21/24 13:12) rash gabapentin Adverse Reaction (Mild, Verified 12/21/24 14:40) Unable to control pain HPI Comprehensive Diabetes Asmnt Most Recent Diabetes Results: Microalb/Creat Ratio 31.9 ug/mg cr (<30) H 11/16/24 Cholesterol 168 mg/dL (<200) 11/25/23 HDL Cholesterol 41 mg/dL (>40) 11/25/23 Triglycerides 67 mg/dL (<150) 11/25/23 Creatinine 0.73 mg/dL (0.5-1.4) 11/16/24 Blood Urea Nitrogen 18 mg/dL (9-16) H 11/16/24 Sodium 138 mmol/L (135-145) 11/16/24 Potassium 4.5 mmol/L (3.3-5.1) 11/16/24 Chloride 106 mmol/L (96-108) 11/16/24 Carbon Dioxide 25 mmol/L (22-29) 11/16/24 Calcium 9.5 mg/dL (8.4-10.2) 11/16/24 AST 25 U/L (5-31) 11/16/24 ALT 41 U/L (0-31) H 11/16/24 Total Protein 8.3 g/dL (6.5-8.0) H 11/16/24 Albumin 4.7 g/dL (3.5-5.0) 11/16/24 [facility] Medical History Hypoglycemia Controlled type 2 diabetes mellitus Needle phobia Diabetes mellitus with hyperglycemia Fibromyalgia Encounter for general adult medical examination with abnormal findings Anxiety, generalized Vitamin D deficiency Back spasm Hypertension, essential Surgical History History of abdominal hysterectomy Family History Father Parkinson disease Mother Osteoporosis HTN (hypertension) Maternal Grandmother Cancer of kidney Maternal Grandfather Stroke Brother No problems noted. Brother No problems noted. Brother No problems noted. Sister No problems noted. Sister No problems noted. Sister No problems noted. Son No problems noted. Son No problems noted. Daughter No problems noted. Social History Housing: Apartment Alcohol intake: never Patient Tobacco Use Status: Never used Tobacco e-Cigarette/Vaping Use: Never Used service: No Current occupational status: employed Cognitive needs: No Hearing needs: No Vision needs: No Assessment & Plan Assessment & Plan (1) Type 2 diabetes mellitus: Code(s): E11.9 - Type 2 diabetes mellitus without complications Qualifiers: Diabetes mellitus complication detail: with diabetic microalbuminuria Diabetes mellitus complication status: with kidney complications Diabetes mellitus terminal clerk insulin use: with terminal clerk use Qualified Code(s): E11.29 - Type 2 diabetes mellitus with other diabetic kidney complication; R80.9 - Proteinuria, unspecified; Z79.4 - buttermaker continuous churn (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 of insulin Plan: Learning objectives: The patient was provided with verbal and written education on the following topics as outlined below. The patient met all learning objectives and was able to verbalize understanding and provide teach back of education topics discussed . The patient was provided with the opportunity to ask questions and all questions were answered. Patient Assessment Assess patient education level/literacy/barriers Patient's last A1c on 11/16/2024 6.5%, down from 14% in 09/2024 Patient reports she has increase physical activity, trying to walk at least 20- 30 minutes 4 to 5 times a week. In addition she has reduce carbohydrate portion at meals She is currently on metformin 500 mg daily She did not have meter at today's visit, reports she is waiting for PA approval. Patient given sample Becky 3 sensor Exercise Medical clearance Effect of exercise on blood sugar Start slowly and gradually increase pace/duration over time Goal amount of exercise Checking blood glucose/have a source of carbs with you Diabetes Complications: ?Nephropathy :Kidney Disease ?diabetes can damage the kidneys, which is not only can cause them to fail but can make them lose their ability to filter waste from the blood? ?Retinopathy: Eye complications ?Retinopathy? is the commonest long-term complication of diabetes. It is leading cause of blindness Besides, Retinopathy- People with diabetes? are also prone to cataract and Glaucoma. ?Neuropathy: Nerve damage -It involves temporary or permanent damage to nerve tissue. Nerve tissue gets injured mainly due to decreased blood flow and rise in blood glucose levels. This damage can lead to pain , or loss of sensation it can also include sexual dysfunction in both men and women ? Infections poor healing: People with diabetes? have increased susceptibility to various infections, such as? pneumonias, pyelonephritis, carbuncles and diabetic ulcers. This may be due to poor blood supply, reduced cellular immunity or hyperglycemia. ?Heart Disease And Stroke: People with diabetes are four times more prone to develop Heart disease than those who do not have diabetes ?Depression: Feeling down once in awhile is normal, but some people feel sadness that just won't go away. Life for them seems hopeless. Feeling this way most of the day for two weeks or more is a sign of serious depression ?Gum Disease: People get gum disease when plaque destroys the gums and bone around the teeth. People with diabetes can get gum disease from having high blood glucose levels for a long time Lifestyle * Work * Travel * Stress management * Problem solving Know your goals * A1C * Blood sugar targets * Blood pressure * Cholesterol/LDL Urine microalbumin Smart Goal Assessment: Patient can identify carbohydrate that she is currently eating from carb list Pt met goal 100% New Goal:?Pt will find a dentist for a check up Educational Materials: The patient was provided with the following written educational materials: ADCES 7 Healthy Behaviors Reducing Risks handout Patient Response to instructions: Comprehension of Instructions: Good Readiness to make changes: action How confident they feel about making changes: Positive Letter of completion of diabetes Education program will be sent to referring provider Portions of this note were created using voice recognition software, please excuse any words or phrases that may have been misinterpreted. Patient Instructions: Incluir actividad diaria regular. ADA recomienda 30 minutos de ejercicio 5 d?as a la semana. P?rdida de peso, hable con el PCP o el cardi?logo antes de comenzar un nuevo plan. Mida el nivel de az?car en la gregorio seg?n las indicaciones; Ayuno y comida m?s angela de 2hpp. Observe las tendencias en los resultados. Utilice los resultados y eval?e c?mo los alimentos, la actividad f?lawrence y los medicamentos afectan los resultados de az?car en la gregorio. Lleve el gluc?metro o CGM a la pr?xima visita. Conocer los medicamentos para la diabetes, michelle acci?n, los efectos secundarios, l a eficacia, la toxicidad, la dosis prescrita, el momento y la frecuencia de administraci?n apropiados, el efecto de las dosis olvidadas y retrasadas y las instrucciones de almacenamiento, viaje y seguridad. T?cnicas de resoluci?n de problemas para el seguimiento de episodios de hipo/hiperglucemia y tratamientos. Reducir los comportamientos de reducci?n de riesgos, dejar de fumar, ex?menes regulares de ojos, pies y dentales. Coding Level of Care Code Est Pt Level 1 (27152) Diagnoses Type 2 diabetes mellitus with diabetic microalbuminuria, with long-term current use of insulin E11.29; R80.9; Z79.4 Diabetes mellitus complication detail: with diabetic microalbuminuria Diabetes mellitus complication status: with kidney complications Diabetes mellitus terminal clerk insulin use: with terminal clerk use
--- OUTSIDE RECORDS SUMMARY | 2024-12-28 15:07 | XMS_ITS | Encounter Summary ---
Author Organization [facility] Address [address] [place] [phone] Care Team Providers Care Farmer General Name Role Phone Gila Bragg MD Primary Care Provider [phone] Reason for Visit * Reason Comments Neck Pain Encounter Details Date Type Department Care Team (Late st Contact Info) Description 12/14/2024 8:55 AM EST - 12/14/2024 9:44 AM EST Emergency [facility] [place] Emergency [address] [place] [address] Strain of neck muscle, initial [...] sent through Care Everywhere. * Cervical Strain (Lithuanian) documented in this encounter Medications at Time [...] chest pain or arm pain. * CHENG Saunedrs - 12/14/2024 7:39 AM EST Emergency Medicine [...] Physician Attestation CHENG Saunders 12/14/24 0925 CHENG Suanders 12/14/24 161 Cosigned by Nash Oh MD [...] GEMUSE QTc 434 ms GEMUSE P Wave [place] 57 degrees GEMUSE R [place] 48 degrees GEMUSE T [place] 59 degrees GEMUSE ECG Interpretation Normal sinus [...] 12/14 documented in this encounter Care Teams Farmer General Relationship Specialty Start Date End Date Gila Bragg MD [address] [place] [address] PCP - General Internal Medicine 06/21/21 documented as of this encounter
--- OUTSIDE RECORDS SUMMARY | 2024-12-28 15:07 | XMS_ITS | Clinical Summary ---
Author Organization [facility] Address [address] [place] [address] Phone Care Team Providers Care Broker Associate Name Role Phone Gila Bragg MD Primary Care Provider [phone] Allergies No known active allergies Medications cyclobenzaprine [...] EST - 12/14/2024 9:44 AM EST Emergency [facility] Emergency [address] [place] [address] Strain of neck muscle, initial [...] GEMUSE QTc 434 ms GEMUSE P Wave [place] 57 degrees GEMUSE R [place] 48 degrees GEMUSE T [place] 59 degrees GEMUSE ECG Interpretation Normal sinus [...] Last 3 [place] [phone] [facility] [employer] Care Teams Broker Associate Relationship Specialty Start Date End Date Gila Bragg MD [address] [place] [address] PCP - General Internal Medicine 06/21/21
== END 2024-12-28 15:03 | disposition home or self-care (01) ==
PROVIDERS: PCP Internal Medicine; Visit Provider Registered Nurse Diabetes Educator
DX: E11.29 Type 2 diabetes mellitus with other diabetic kidney complication (principal); R80.9 Proteinuria, unspecified; Z79.4 Long term (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 of insulin

== ENCOUNTER → 2024-12-28 14:05 | Outpatient (BNVA) | payer OTHER, SELFPAY | PROVIDERS: PCP Internal Medicine; Visit Provider Registered Nurse Diabetes Educator | DX: E11.29 Type 2 diabetes mellitus with other diabetic kidney complication (principal); R80.9 Proteinuria, unspecified; Z79.4 Long term (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 of insulin | CPT/HCPCS: 99211 ==

== ENCOUNTER 2025-01-14 10:26 | Outpatient (AMB) | payer OTHER, SELFPAY ==
--- NOTE | 2025-01-14 10:42 | MHC.PC.OV ---
Vital Signs 01/14/25 10:43 Height 5 ft 3 in Weight 143 lb 2 oz BMI 25.4 BP 126/78 Blood Pressure Location Rt brachial Position Sitting Pulse 78 Pulse Source Pulse Oximeter Pulse Oximetry (%) 98 Oxygen Delivery Method Room Air Intake Visit Reasons: Disability Documentation Analysis Director Required: Yes Analysis Director Language: Physician Industrial Name: [id number] Information Interpreted: clinical only Awning Erector: Not Required per policy Allergies lisinopril Allergy (Unknown, Verified 01/14/25 10:51) rash gabapentin Adverse Reaction (Mild, Verified 01/14/25 10:51) Unable to control pain Medication List - Last Reconciled 01/14/25 by Gila Bragg MD albuterol sulfate 0.63 mg (3 mL) inhalation QID PRN alcohol swabs (Alcohol Pads) 1 pad topical .three times per day amlodipine 10 mg PO DAILY aspirin (Adult Low Dose Aspirin) 81 mg PO DAILY atorvastatin 40 mg PO BEDTIME [Blood pressure monitor As directed] blood-glucose meter (TuneGOTouch Verio Flex Meter) As directed blood-glucose meter,continuous (FreeStyle Becky 3 Cherry Log) use as directed to monitor blood glucose continuously blood-glucose sensor (FreeStyle Becky 3 Plus Sensor device) apply new sensor every 14 days to monitor glucose continuously cyclobenzaprine 10 mg PO BEDTIME PRN ergocalciferol (vitamin D2) 2,000 units PO DAILY 90 days escitalopram oxalate 10 mg PO DAILY 90 days glucose (Dex4 Glucose) 16 grams (4 x 4 gram) PO Q15M PRN lancets (TuneGOTouch Delica Plus Lancet) Use lancet 3 times daily with meter to check blood glucose. lidocaine 5% (Lidoderm) 1 patch topical DAILY losartan 25 mg PO DAILY metformin ER 500 mg PO DAILY nut.tx.gluc.intol,lac-free,soy (Glucerna oral liquid) 1 ea PO DAILY 28 days pregabalin 75 mg PO BEDTIME 90 days [strips one touch Verio Use 1 strip 3 times daily to check blood glucose.] [Updraft machine As directed] Tobacco use date assessed: 01/14/25 Dental Screening Dental Screen Date: 01/14/25 Did you have a dental visit in the last 12 months?: Yes Did you have a dental problem in the last 6 months where you did not have access to dental care?: No Was dental information given to patient?: Patient has dentist HPI Disability Documentation HPI Details Patient is 64-year-old female with a history of fibromyalgia, lipid disorder, diabetes mellitus, muscle spasms, vitamin-D deficiency, hypertension Came in today to have financial assistance paperwork filled Patient is interviewed was taken with the help of professional per diem interpreter Paperwork filled for 6-12 month Based on her multiple medical problems and difficulty performing her job 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 Brother No problems noted. Brother No problems noted. Sister No problems noted. Sister No problems noted. Sister No problems noted. Son No problems noted. Son No problems noted. Daughter No problems noted. Social History Housing: Apartment Alcohol intake: never Patient Tobacco Use Status: Never used Tobacco e-Cigarette/Vaping Use: Never Used service: No Current occupational status: employed Cognitive needs: No Hearing needs: No Vision needs: No Questionnaire Thrive Questionnaire Date Thrive assessed: 11/21/24 I am a: Patient What is your living situation today?: I have a steady place to live Within the past 12 months, did the food you bought not last and you didn't have the money to get more?: Sometimes True Within the past 12 months, did you worry whether your food would run out before you got money to buy more?: Often true Do you have trouble paying for medicines?: No Do you have trouble getting transportation to medical appointments?: No Do you have trouble paying your heating and electricity bill?: Yes Do you have trouble taking care of your child, family member or friend?: No Do you have trouble with day-to-day activities such as bathing, preparing meals, shopping, managing finances, etc.?: No Are you currently unemployed and looking for a job?: Yes Are you interested in more education?: Yes Currently or been in a relationship where the following occur: I choose not to answer THRIVE Score: 3 MINDY-7 AMB Questionnaire MINDY-7 Date MINDY - 7 assessed: 11/24/24 Source: Developed by Drs. Duarte Coleman, Megan Wilson, George Hernandez and colleagues, with an educational chris from [employer]. Review of Systems Const Denies chills and Denies fever(s) ENT Denies epistaxis and Denies nasal discharge Card Denies chest pain Resp Denies chest congestion, Denies cough and Denies hemoptysis GI Denies diarrhea and Denies nausea Skin/Breast Denies rash Neuro Reports no additional complaints Psych Reports no additional complaints Endo Reports no additional complaints Physical exam (Primary Care) Vital Signs: Last Vital Signs Pulse 78 01/14/25 10:43 BP 126/78 01/14/25 10:43 Pulse Ox 98 01/14/25 10:43 Oxygen Delivery Method Room Air 01/14/25 10:43 BMI result Body Mass Index 25.4 Tobacco/Smoking Status: Tobacco use Status Tobacco use date assessed 01/14/25 01/14/25 10:46 Patient Tobacco Use Status Never used Tobacco 01/14/25 10:46 e-Cigarette/Vaping Use Never Used 01/14/25 10:46 Thrive Assessment: Date of Thrive Assessment Date Thrive assessed 11/21/24 01/14/25 10:46 Currently or been in a relationship where the following occur: I choose not to answer Const General: cooperative, comfortable and no acute distress Orientation/consciousness: patient oriented x3 HENMT Head: Yes normocephalic Eyes General: appearance normal, both eyes and all related structures Neck Neck: Yes supple Resp Effort & Inspection: normal respiratory effort, no cough and no stridor Cardio Rhythm: regular rhythm Heart sounds: S1 normal heart sound present and S2 normal heart sound present Skin General skin exam: turgor normal Neuro General: patient oriented x3, tone normal and moves all extremities Extrem Right lower extremity: no edema Left lower extremity: no edema Coding Level of Care Code Est Pt Level 3 (16212) Diagnoses Fibromyalgia M79.7 Hypertension, essential I10 Back spasm M62.830 Type 1 diabetes mellitus with diabetic autonomic neuropathy E10.43 Diabetes mellitus complication status: with neurologic complications Diabetes mellitus complication detail: with autonomic neuropathy shelter (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 of insulin Z79.4 Lipid disorder E78.9 Recurrent major depressive disorder, in partial remission F33.41 Active/Remission status: in partial remission Chronic pain syndrome G89.4 Assessment & Plan Assessment & Plan (1) Fibromyalgia: Code(s): M79.7 - Fibromyalgia Category: Medical (2) Hypertension, essential: Code(s): I10 - Essential (primary) hypertension Category: Medical (3) Back spasm: Code(s): M62.830 - Muscle spasm of back Category: Medical (4) Insulin dependent type 1 diabetes mellitus: Code(s): E10.9 - Type 1 diabetes mellitus without complications Category: Medical Qualifiers: Diabetes mellitus complication status: with neurologic complications Diabetes mellitus complication detail: with autonomic neuropathy Qualified Code(s): E10.43 - Type 1 diabetes mellitus with diabetic autonomic (poly)neuropathy (5) intermediate card tender (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 of insulin: Code(s): Z79.4 - intermediate card tender (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 of insulin Category: Medical (6) Lipid disorder: Code(s): E78.9 - Disorder of lipoprotein metabolism, unspecified Category: Medical (7) Major depression, recurrent: Code(s): F33.9 - Major depressive disorder, recurrent, unspecified Category: Medical Qualifiers: Active/Remission status: in partial remission Qualified Code(s): F33.41 - Major depressive disorder, recurrent, in partial remission (8) Chronic pain syndrome: Code(s): G89.4 - Chronic pain syndrome Category: Medical Plan Patient is 64-year-old female with a history of fibromyalgia, lipid disorder, diabetes mellitus, muscle spasms, vitamin-D deficiency, hypertension Came in today to have financial assistance paperwork filled Patient is interviewed was taken with the help of professional per diem interpreter Paperwork filled for 6-12 month Based on her multiple medical problems and difficulty 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
[2025-01-14 10:43] VITALS: BP 126/78; PULSE 78; O2SAT 98; BMI 25.4
--- OUTSIDE RECORDS SUMMARY | 2025-01-14 11:44 | XMS_ITS | Clinical Summary ---
Author Organization [facility] Address [address] [place] [address] Phone Care Team Providers Care Chemical Instrumentation Officer Name Role Phone Gila Bragg MD Primary Care Provider [phone] Allergies No known active allergies Medications cyclobenzaprine [...] EST - 12/14/2024 9:44 AM EST Emergency [facility] Emergency [address] [place] [address] Strain of neck muscle, initial [...] GEMUSE QTc 434 ms GEMUSE P Wave [place] 57 degrees GEMUSE R [place] 48 degrees GEMUSE T [place] 59 degrees GEMUSE ECG Interpretation Normal sinus [...] Last 3 [place] [address] [facility] Care Teams Chemical Instrumentation Officer Relationship Specialty Start Date End Date Gila Bragg MD [address] [place] [id number] PCP - General Internal Medicine 06/21/21
== END 2025-01-14 11:02 | disposition home or self-care (01) ==
PROVIDERS: PCP Internal Medicine; Visit Provider Internal Medicine
DX: E10.43 Type 1 diabetes mellitus with diabetic autonomic (poly)neuropathy (principal); F33.41 Major depressive disorder, recurrent, in partial remission; Z79.4 Long term (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 of insulin; M79.7 Fibromyalgia; I10 Essential (primary) hypertension; M62.830 Muscle spasm of back; E78.9 Disorder of lipoprotein metabolism, unspecified; G89.4 Chronic pain syndrome

== ENCOUNTER → 2025-01-14 10:26 | Outpatient (BNVA) | payer OTHER, SELFPAY | PROVIDERS: PCP Internal Medicine; Visit Provider Internal Medicine | DX: M79.7 Fibromyalgia (principal); I10 Essential (primary) hypertension; M62.830 Muscle spasm of back; E10.43 Type 1 diabetes mellitus with diabetic autonomic (poly)neuropathy; E78.9 Disorder of lipoprotein metabolism, unspecified; F33.41 Major depressive disorder, recurrent, in partial remission; G89.4 Chronic pain syndrome; Z79.4 Long term (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 of insulin | CPT/HCPCS: 99212 ==

== ENCOUNTER 2025-03-30 09:39 | Outpatient (REF) | payer OTHER, SELFPAY ==
--- OUTSIDE RECORDS SUMMARY | 2025-03-30 11:37 | XMS_ITS | Clinical Summary ---
Author Organization [facility] Address [address] [place] [phone] Phone Care Team Providers Care Psychic Reader Name Role Phone Gila Bragg MD Primary Care Provider [phone] Allergies No known active allergies Medications cyclobenzaprine (FLEXERIL) 10 mg tablet Take 1 tablet (10 mg total) by mouth 2 (two) times a day if needed for muscle spasms for up to 5 days. 10 tablet 12/14/2024 Active Medical History Medical History Date Comments Diabetes mellitus (CMS/HCC V24, CMS/[facility] V28) Fibromyalgia Social History Tobacco Use Types Packs/Day [...] - 2023-2 5 season) 2024 Influenza Vaccine (Season Ended) 2025 RSV Immunization Adult Patie nts (1 - 1-dose 75+ series) 2037 HIB [...] age to complete this topic Meningococcal B Vaccine Aged Out No l onger eligible based on patient's age to complete [...] on patient's age to complete this topic Insurance [facility] Care Teams Psychic Reader Relationship Specialty Start Date End Date Gila Bragg MD [address] [place] [phone] PCP - General Internal Medicine 06/21/21
[2025-03-30 13:15] LABS: MANUAL DIFF FLAG NO
[2025-03-30 13:21] LABS: Basophils Percent Auto 0.4 % (0-2); Eosinophils Absolute Auto 0.1 X10*3/uL (0.0-0.4); Eosinophils Percent Auto 1.6 % (0-4); Hematocrit 41.8 % (37.0-47.0); Hemoglobin 13.8 g/dl (12.0-16.0); Imm Gran Abs Auto 0.01 X10*3/uL (0.00-0.03); Imm Gran Pct Auto 0.2 % (0.0-0.4); Lymphocytes Absolute Auto 1.3 X10*3/uL (1.2-4.9); Lymphocytes Percent Auto 25.9 % (20-40); Mean Corpuscular Hemoglobin 30.4 pg (27.0-33.0); Mean Corpuscular Volume 92.1 fL (80.0-98.0); Mean Platelet Volume 9.5 fL (9.4-12.3); Monocytes Absolute Auto 0.5 X10*3/uL (0.1-1.2); Monocytes Percent Auto 8.9 % (2-11); Neutrophils Absolute Auto 3.2 x10*3/uL (2.0-8.3); Platelet Count 318 X10*3/uL (160-400); Red Blood Count 4.54 X10*6/uL (4.20-5.50); Red Cell Distribution Width 12.6 % (11.0-16.0); White Blood Count 5.1 X10*3/uL (4.8-10.8)
[2025-03-30 13:30] LABS: Estimated Average Glucose 143 mg/dL; Hemoglobin A1C 174.5784 umol/L; Hemoglobin A1c % 6.6 % (<6.0); Total Hemoglobin (HGBA1C) 3576.8931 umol/L
[2025-03-30 13:59] LABS: Vitamin B12 1300 pg/mL (200-900)
[2025-03-30 16:01] LABS: Alanine Aminotransferase 32 U/L (0-31); Albumin Level 4.7 g/dL (3.5-5.0); Alkaline Phosphatase 85 U/L (39-117); Anion Gap 10 (12-20); Aspartate Amino Transferase 24 U/L (5-31); Bilirubin Total 0.7 mg/dL (0.0-1.0); Blood Urea Nitrogen 10 mg/dL (9-16); Calcium 9.5 mg/dL (8.4-10.2); Carbon Dioxide 28 mmol/L (22-29); Chloride 105 mmol/L (96-108); Estimated Glomerular Filt Rate > 60; Glucose Random 140 mg/dL (60-115); Potassium 4.4 mmol/L (3.3-5.1); Sodium 139 mmol/L (135-145); TSH reflex Free T4 1.42 uIU/mL (0.32-4.0); Total Protein 7.8 g/dL (6.5-8.0)
[2025-03-31 08:48] LABS: LDL Cholesterol Direct 68 mg/dL (<100)
[2025-04-06 12:23] LABS: Vitamin D 25-OH, Total 55
[2025-04-06 12:24] LABS: Vitamin D 25-OH, D2 18; Vitamin D 25-OH, D3 37
== END 2025-03-30 09:40 | disposition home or self-care (01) ==
LOC: HO.HMGCLDS 09:39
PROVIDERS: PCP Internal Medicine; Visit Provider Internal Medicine
DX: G89.4 Chronic pain syndrome (principal); E11.29 Type 2 diabetes mellitus with other diabetic kidney complication; R80.9 Proteinuria, unspecified; J45.40 Moderate persistent asthma, uncomplicated; F33.41 Major depressive disorder, recurrent, in partial remission; E78.9 Disorder of lipoprotein metabolism, unspecified; M79.7 Fibromyalgia; I10 Essential (primary) hypertension; Z79.4 Long term (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 of insulin; Z79.899 Other long term (current) drug therapy
CPT/HCPCS: 36415; 80053; 82306; 82607; 83036; 83721; 84443; 85025; 99212

== ENCOUNTER 2025-03-30 09:39 | Outpatient (AMB) | payer OTHER, SELFPAY ==
[2025-03-30 09:43] VITALS: BP 118/72; PULSE 77; O2SAT 98; BMI 25.2
--- NOTE | 2025-03-30 09:43 | A.OFFPC_ITS ---
Vital Signs 03/30/25 09:43 Height 5 ft 3 in Weight 142 lb BMI 25.2 BP 118/72 Blood Pressure Location Rt brachial Position Sitting Pulse 77 Pulse Source Pulse Oximeter Pulse Oximetry (%) 98 Oxygen Delivery Method Room Air Intake Visit Reasons: 3 months follow up Retort Operator Required: Yes Retort Operator Language: Indian Accompanied by: Self / Same As Patient Allergies lisinopril Allergy (Unknown, Verified 03/30/25 09:43) rash gabapentin Adverse Reaction (Mild, Verified 03/30/25 09:43) Unable to control pain Medication List - Last Reconciled 03/30/25 by Gila Bragg MD albuterol sulfate 0.63 mg (3 mL) inhalation QID PRN alcohol swabs (Alcohol Pads) 1 pad topical .three times per day amlodipine 10 mg PO DAILY aspirin (Adult Low Dose Aspirin) 81 mg PO DAILY atorvastatin 40 mg PO BEDTIME [Blood pressure monitor As directed] blood-glucose meter (Flipteruch Verio Flex Meter) As directed blood-glucose sensor (XianguoStyle Becky 3 Plus Sensor device) apply new sensor every 14 days to monitor glucose continuously blood-glucose,tunnel drier operator,cont (FreeStyle Becky 3 [place]) use as directed to monitor blood glucose continuously cyclobenzaprine 10 mg PO BEDTIME PRN ergocalciferol (vitamin D2) 50 mcg PO DAILY escitalopram oxalate 10 mg PO DAILY 90 days glucose (Dex4 Glucose) 16 grams (4 x 4 gram) PO Q15M PRN lancets (Wirecom TechnologiesTouch Delica Plus Lancet) Use lancet 3 times daily with meter to check blood glucose. lidocaine 5% (Lidoderm) 1 patch topical DAILY losartan 25 mg PO DAILY metformin ER 500 mg PO DAILY nut.tx.gluc.intol,lac-free,soy (Glucerna oral liquid) 1 ea PO DAILY 28 days pregabalin 75 mg PO BEDTIME 90 days [strips one touch Verio Use 1 strip 3 times daily to check blood glucose.] [Updraft machine As directed] Tobacco use date assessed: 01/14/25 Dental Screening Dental Screen Date: 01/14/25 HPI 3 months follow up HPI Details History - The patient is a 64-year-old female pr esenting with musculoskeletal pain. - She reports having pain all over her b ack, muscles, and joints for an unspecified duration. - The pain has significantly impacted he r daily life and led to her stopping work two months ago. - The pain is persistent, described as c onstantly present and worsening at night, impacting her ability to sleep. - She has not seen a maintenance worker municipal prev iously for this issue. - Current management with Pregabalin, 75 mg, is noted but not fully effective overnight. - The patient also notes occasional exac erbation of back pain severe enough to cause significant discomfort. Medications - Pregabalin (Glerica) 75 mg at bedtime for musculoskeletal pain - Amlodipine 10 mg for hypertension - Atorvastatin 40 mg for hyperlipidemia - Muscle relaxer for musculoskeletal brook n (exact medication unspecified) Problem List - Generalized musculoskeletal pain - Essential Hypertension - Hyperlipidemia - Insomnia Patient Instructions - Bring a written list of all current me dications for the next appointment. - Keep the medication list with you at a ll times. - You are scheduled for a blood test tod pedro; please proceed to the lab as instructed. - An appointment with a maintenance worker municipal w ill be booked. - If you experience worsening symptoms, seek medical care sooner. - start increasing dose of Lyrica 150 mg from 75 philosophy lecturer ID [id number] transction ID [id number] Review of Systems General: No fever no chills neurological: No headaches no dizziness ear nose throat: No sore throat no hearing difficulty no ear pain cardiovascular: No syncope, no chest pain, no palpitations gastrointestinal: No nausea vomiting or diarrhea endocrine: No polyuria polydipsia no heat intolerance genitourinary: No dysuria skin: No new complaints Physical Exam general: No acute distress HEENT: No acute findings neck: Supple respiratory system: Able to talk in full sentences, no audible wheeze no stridor cardiovascular: S1-S2 RRR gastrointestinal: Pain all over back extremities: No new findings ENTRY LEVEL WEB DEVELOPER: Alert awake oriented x3 motor sensory intact skin: Normal turgor PFSH Medical History Hypoglycemia Controlled type 2 diabetes mellitus Needle phobia Diabetes mellitus with hyperglycemia Fibromyalgia Encounter for general adult medical examination with abnormal findings Anxiety, generalized Vitamin D deficiency Back spasm Hypertension, essential Surgical History History of abdominal hysterectomy Family History Father Parkinson disease Mother Osteoporosis HTN (hypertension) Maternal Grandmother Cancer of kidney Maternal Grandfather Stroke Brother No problems noted. Brother No problems noted. Brother No problems noted. Sister No problems noted. Sister No problems noted. Sister No problems noted. Son No problems noted. Son No problems noted. Daughter No problems noted. Social History Housing: Apartment Alcohol intake: never Patient Tobacco Use Status: Never used Tobacco e-Cigarette/Vaping Use: Never Used service: No Current occupational status: employed Cognitive needs: No Hearing needs: No Vision needs: No Questionnaire Thrive Questionnaire Date Thrive assessed: 11/21/24 I am a: Patient What is your living situation today?: I have a steady place to live Within the past 12 months, did the food you bought not last and you didn't have the money to get more?: Sometimes True Within the past 12 months, did you worry whether your food would run out before you got money to buy more?: Often true Do you have trouble paying for medicines?: No Do you have trouble getting transportation to medical appointments?: No Do you have trouble paying your heating and electricity bill?: Yes Do you have trouble taking care of your child, family member or friend?: No Do you have trouble with day-to-day activities such as bathing, preparing meals, shopping, managing finances, etc.?: No Are you currently unemployed and looking for a job?: Yes Are you interested in more education?: Yes Currently or been in a relationship where the following occur: I choose not to answer THRIVE Score: 3 MINDY-7 AMB Questionnaire MINDY-7 Date MINDY - 7 assessed: 11/24/24 Source: Developed by Drs. Duarte Coleman, Megan Wilson, George Hernandez and colleagues, with an educational chris from [employer]. Physical exam (Primary Care) Vital Signs: Last Vital Signs Pulse 77 03/30/25 09:43 BP 118/72 03/30/25 09:43 Pulse Ox 98 03/30/25 09:43 Oxygen Delivery Method Room Air 03/30/25 09:43 BMI result Body Mass Index 25.2 Tobacco/Smoking Status: Tobacco use Status Tobacco use date assessed 01/14/25 03/30/25 09:44 Patient Tobacco Use Status Never used Tobacco 03/30/25 09:44 e-Cigarette/Vaping Use Never Used 03/30/25 09:44 Thrive Assessment: Date of Thrive Assessment Date Thrive assessed 11/21/24 03/30/25 09:44 Currently or been in a relationship where the following occur: I choose not to answer Coding Level of Care Code Est Pt Level 5 (26142) Complex EM visit Add On G2211 Diagnoses Chronic pain syndrome G89.4 Controlled type 2 diabetes mellitus with microalbuminuria, without long-term current use of insulin E11.29; R80.9 Diabetes mellitus complication detail: with diabetic microalbuminuria Diabetes mellitus complication status: with kidney complications Diabetes mellitus remote computer terminal operator insulin use: without remote computer terminal operator use Moderate persistent asthma without complication J45.40 Asthma complication type: uncomplicated Microalbuminuria due to type 2 diabetes mellitus E11.29; R80.9 Recurrent major depressive disorder, in partial remission F33.41 Active/Remission status: in partial remission Lipid disorder E78.9 remote computer terminal operator (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 of insulin Z79.4 Fibromyalgia M79.7 Hypertension, essential I10 Time Spent (min) 42 Comment Reviewing chart, gspt-do-oesr with the patient and philosophy lecturer, coordination of care Assessment & Plan Assessment & Plan (1) Chronic pain syndrome: Code(s): G89.4 - Chronic pain syndrome Category: Medical (2) Controlled type 2 diabetes mellitus: Code(s): E11.9 - Type 2 diabetes mellitus without complications Category: Medical Qualifiers: Diabetes mellitus complication detail: with diabetic microalbuminuria Diabetes mellitus complication status: with kidney complications Diabetes mellitus longterm insulin use: without remote computer terminal operator use Qualified Code(s): E11.29 - Type 2 diabetes mellitus with other diabetic kidney complication; R80.9 - Proteinuria, unspecified (3) Asthma, moderate persistent: Code(s): J45.40 - Moderate persistent asthma, uncomplicated Category: Medical Qualifiers: Asthma complication type: uncomplicated Qualified Code(s): J45.40 - Moderate persistent asthma, uncomplicated (4) Microalbuminuria due to type 2 diabetes mellitus: Code(s): E11.29 - Type 2 diabetes mellitus with other diabetic kidney complication; R80.9 - Proteinuria, unspecified Category: Medical (5) Major depression, recurrent: Code(s): F33.9 - Major depressive disorder, recurrent, unspecified Category: Medical Qualifiers: Active/Remission status: in partial remission Qualified Code(s): F33.41 - Major depressive disorder, recurrent, in partial remission (6) Lipid disorder: Code(s): E78.9 - Disorder of lipoprotein metabolism, unspecified Category: Medical (7) remote computer terminal operator (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 of insulin: Code(s): Z79.4 - remote computer terminal operator (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 of insulin Category: Medical (8) Fibromyalgia: Code(s): M79.7 - Fibromyalgia Category: Medical (9) Hypertension, essential: Code(s): I10 - Essential (primary) hypertension Category: Medical Plan History - The patient is a 64-year-old female with a history of insulin-dependent diabetes mellitus, hypertension, lipid disorder, fibromyalgia, muscle spasm, anxiety/depression, vitamin-D deficiency presenting with musculoskeletal pain. - She reports having pain all over her back, muscles, and joints for an unspecified duration. - The pain has significantly impacted her daily life and led to her stopping work two months ago. - The pain is persistent, described as constantly present and worsening at night, impacting her ability to sleep. - She has not seen a maintenance worker municipal previously for this issue. - Current management with Pregabalin, 75 mg, is noted but not fully effective overnight. - The patient also notes occasional exacerbation of back pain severe enough to cause significant discomfort. Medications - Pregabalin (Glerica) 75 mg at bedtime for musculoskeletal pain - Amlodipine 10 mg for hypertension - Atorvastatin 40 mg for hyperlipidemia - Muscle relaxer for musculoskeletal pain (exact medication unspecified) Problem List - Generalized musculoskeletal pain - Essential Hypertension - Hyperlipidemia - Insomnia Patient Instructions - Bring a written list of all current medications for the next appointment. - Keep the medication list with you at all times. - You are scheduled for a blood test today; please proceed to the lab as instructed. - An appointment with a maintenance worker municipal will be booked. - If you experience worsening symptoms, seek medical care sooner. - start increasing dose of Lyrica 150 mg from 75 philosophy lecturer ID [id number] transction ID [id number] Orders: Orders Hemoglobin A1c Today E11.29 - Type 2 diabetes mellitus with other diabetic kidney complication, E78.9 - Disorder of lipoprotein metabolism, unspecified, F 33.41 - Major depressive disorder, recurrent, in partial remission, G89.4 - Chronic pain syndrome, I10 - Essential (primary) hypertension, J45.40 - Moderate persistent asthma, uncomplicated, M79.7 - Fibromyalgia, R80.9 - Proteinuria, unspecified, Z79.4 - remote computer terminal operator (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 of insulin Complete Blood Count Auto Diff Today E11.29 - Type 2 diabetes mellitus with other diabetic kidney complication, E78.9 - Disorder of lipoprotein metabolism, unspecified, F33.41 - Major depressive disorder, recurrent, in partial remission, G89.4 - Chronic pain syndrome, I10 - Essential (primary) hypertension, J45.40 - Moderate persistent asthma, uncomplicated, M79.7 - Fibromyalgia, R80.9 - Proteinuria, unspecified, Z79.4 - halfway (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 of insulin Comprehensive Met. Panel Today E11. - Type 2 diabetes mellitus with other diabetic kidney complication, E78.9 - Disorder of lipoprotein metabolism, unspecified, F33.41 - Major depressive disorder, recurrent, in partial remission, G89.4 - Chronic pain syndrome, I10 - Essential (primary) hypertension, J45.40 - Moderate persistent asthma, uncomplicated, M79.7 - Fibromyalgia, R80.9 - Proteinuria, unspecified, Z79.4 - remote computer terminal operator (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 of insulin TSH reflex Free T4 Today E11. - Type 2 diabetes mellitus with other diabetic kidney complication, E78.9 - Disorder of lipoprotein metabolism, unspecified, F33.41 - Major depressive disorder, recurrent, in partial remission, G89.4 - Chronic pain syndrome, I10 - Essential (primary) hypertension, J45.40 - Moderate persistent asthma, uncomplicated, M79.7 - Fibromyalgia, R80.9 - Proteinuria, unspecified, Z79.4 - remote computer terminal operator (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 of insulin LDL Cholesterol Direct Today E11. - Type 2 diabetes mellitus with other diabetic kidney complication, E78.9 - Disorder of lipoprotein metabolism, unspecified, F33.41 - Major depressive disorder, recurrent, in partial remission, G89.4 - Chronic pain syndrome, I10 - Essential (primary) hypertension, J45.40 - Moderate persistent asthma, uncomplicated, M79.7 - Fibromyalgia, R80.9 - Proteinuria, unspecified, Z79.4 - remote computer terminal operator (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 of insulin Vitamin B12 Today E11. - Type 2 diabetes mellitus with other diabetic kidney complication, E78.9 - Disorder of lipoprotein metabolism, unspecified, F33.41 - Major depressive disorder, recurrent, in partial remission, G89.4 - Chronic pain syndrome, I10 - Essential (primary) hypertension, J45.40 - Moderate persistent asthma, uncomplicated, M79.7 - Fibromyalgia, R80.9 - Proteinuria, unspecified, Z79.4 - remote computer terminal operator (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 of insulin Vitamin D 25-OH (D2 and D3) Today E11.29 - Type 2 diabetes mellitus with other diabetic kidney complication, E78.9 - Disorder of lipoprotein metabolism, unspecified, F33.41 - Major depressive disorder, recurrent, in partial remission, G89.4 - Chronic pain syndrome, I10 - Essential (primary) h ypertension, J45.40 - Moderate persistent asthma, uncomplicated, M79.7 - Fibromyalgia, R80.9 - Proteinuria, unspecified, Z79.4 - remote computer terminal operator (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 of insulin Medications: Changed From pregabalin 75 mg PO BEDTIME 90 days 90 caps 0RF To pregabalin 150 mg PO BEDTIME 90 caps 0RF 90 days
== END 2025-03-30 10:07 | disposition home or self-care (01) ==
LOC: HO.HMCC 09:40
PROVIDERS: PCP Internal Medicine; Visit Provider Internal Medicine
DX: G89.4 Chronic pain syndrome (principal); E11.29 Type 2 diabetes mellitus with other diabetic kidney complication; Z79.4 Long term (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 of insulin; R80.9 Proteinuria, unspecified; J45.40 Moderate persistent asthma, uncomplicated; F33.41 Major depressive disorder, recurrent, in partial remission; E78.9 Disorder of lipoprotein metabolism, unspecified; M79.7 Fibromyalgia; I10 Essential (primary) hypertension

== ENCOUNTER 2025-04-08 11:08 | Outpatient (AMB) | payer OTHER, SELFPAY ==
--- NOTE | 2025-04-08 11:19 | A.OFFVIS_ITS ---
Vital Signs 04/08/25 11:22 Height 5 ft 3 in Weight 143 lb 1.28 oz BMI 25.3 Intake Visit Reasons: Type II Diabetes Intake Note: Patient present today to follow up on Type 2 Diabetes Mellitus. Patient c/o she has been starting to experience hyperglycemia throughout the day and she is unsure why. She also states Metformin is causing a lot of acid reflux. Last Diabetic Eye exam: 09/28/2024 Last Podiatry Visit: Does not see a Counter Attendant Random Glucose: 252 mg/dl HgA1C: 6.6% 03/30/2025 Alteration Specialist Required: Yes Alteration Specialist Language: Squirt Machine Operator Services: Alteration Specialist Present Alteration Specialist Name: Veronica Kebede Information Interpreted: non-clinical & clinical Accompanied by: Self / Same As Patient Allergies lisinopril Allergy (Unknown, Verified 04/08/25 11:22) rash gabapentin Adverse Reaction (Mild, Verified 04/08/25 11:22) Unable to control pain HPI Comments Details: This is a 64-year-old female with a past medical history of asthma, chronic pain, needle phobia, depression and anxiety, hypertension, fibromyalgia and hyperlipidemia presenting for diabetic management. border patrol officer present for visit. [place]ian video wood tile installation helper: [id number] Delio She denies family history of type 1 and type 2 diabetes. C-peptide normal 2.47, MINDY and islet cell antibody negative and BNP within normal range 09/03/2024. Hemoglobin A1c 6.6% 03/30/2025. Reviewed Becky 3 download March 26 to 04/08/2025 CGM active 88% Average glucose 172 G MA 7.4% Glucose variability 27.4% Very high 7% High 34% Target range 59% 0% hypoglycemia She experiences hyperglycemia overnight and c software developer and has blood sugars in the target range the majority of the time in the afternoon. She was taking care of her mother in [place] for a couple months. She was not able to take medicine consistently or follow her normal diet. She just returned a week ago. Current medication regimen: Metformin ER 500 mg once daily. Lantus discontinued due to hypoglycemia. Hypoglycemia symptoms: Denies episodes within the past couple of months. Hyperglycemia symptoms: none Microvascular complications: neuropathy, nephropathy (microalbuminuria) Macrovascular complications: No known Hypertension: treated with amlodipine and losartan. Hyperlipidemia: treated with atorvastatin. LDL at goal. ROS: Constitutional: No fevers, chills or night sweats. Eyes: No double vision or loss of vision or current blurry vision. Respiratory: No shortness of breath Cardiovascular: No chest pain Gastrointestinal: No anorexia, nausea, vomiting or diarrhea. No abdominal pain Neurologic: No headache, dizziness, syncope Skin: No open wounds. Physical exam: Constitutional: Alert, in no distress. Neck: Supple, Full range of motion. No lymphadenopathy. No palpable thyroid masses. Respiratory: Clear to auscultation. Cardiovascular: S1 S2 regular. No murmurs. Right foot: Warm and well perfused. No clubbing, cyanosis or edema. Intact DP pulse. Mildly decreased vibratory sensation. Intact sensation to monofilament. No open wounds. Left foot: Warm and well perfused. No clubbing, cyanosis or edema. Intact DP pulse. Mildly decreased vibratory sensation. Intact sensation to monofilament. No open wounds. [facility] Medical History Hypoglycemia Controlled type 2 diabetes mellitus Needle phobia Diabetes mellitus with hyperglycemia Fibromyalgia Encounter for general adult medical examination with abnormal findings Anxiety, generalized Vitamin D deficiency Back spasm Hypertension, essential Surgical History History of abdominal hysterectomy Family History Father Parkinson disease Mother Osteoporosis HTN (hypertension) Maternal Grandmother Cancer of kidney Maternal Grandfather Stroke Brother No problems noted. Brother No problems noted. Brother No problems noted. Sister No problems noted. Sister No problems noted. Sister No problems noted. Son No problems noted. Son No problems noted. Daughter No problems noted. Social History Housing: Apartment Alcohol intake: never Patient Tobacco Use Status: Never used Tobacco e-Cigarette/Vaping Use: Never Used service: No Current occupational status: employed Cognitive needs: No Hearing needs: No Vision needs: No Physical Exam Vital Signs: BMI result Body Mass Index 25.3 Office Procedures Glucose Monitoring Details Details: see HPI Procedure code (CPT) selection complete Results Reviewed Results Reviewed: Laboratory Last Values Glucose (Clinic) 252 mg/dL (60-115) H 04/08/25 11:27 Laboratory Tests 11/16/24 03/30/25 16:12 10:12 Plt Count 318 Creatinine 0.73 Estimated GFR > 60 Hemoglobin A1c % 6.6 H AST 24 ALT 32 H LDL Cholesterol Direct 68 TSH 1.42 Urine Creatinine 34.44 Urine Microalbumin 11.0 Microalb/Creat Ratio 31.9 H Assessment & Plan Assessment & Plan (1) Controlled type 2 diabetes mellitus: Code(s): E11.9 - Type 2 diabetes mellitus without complications Category: Medical Qualifiers: Diabetes mellitus retirement insulin use: without extermination supervisor use Diabetes mellitus complication status: with kidney complications Diabetes mellitus complication detail: with diabetic microalbuminuria Qualified Code(s): E11.29 - Type 2 diabetes mellitus with other diabetic kidney complication; R80.9 - Proteinuria, unspecified Plan In summary this is a 64-year-old female with controlled Type II diabetes. She will starting taking metformin ER 500 mg once daily consistently. She has seen the dietitian. She will return implement recommendations. She is exercising. Reviewed treatment of hypo and hyperglycemia. She has glucose tablets. If you experience low blood sugar, treat this by eating a chewable fruit candy like skittles or jelly beans (about 8 pieces), 4 ounces (1/2 cup) of fruit juice (not diet), 1 tablespoon of honey or 4 glucose tablets. If your blood sugar is under 50, take double the amount of one of the above. Recheck your blood sugar in 15 minutes. Follow up in One month for type 2 diabetes. Orders: Orders AMB Glucose Monitoring Today E11.9 - Type 2 diabetes mellitus without complications Coding Level of Care Code Est Pt Level 4 (63075) Diagnoses Controlled type 2 diabetes mellitus with microalbuminuria, without long-term current use of insulin E11.29; R80.9 Diabetes mellitus retirement insulin use: without extermination supervisor use Diabetes mellitus complication status: with kidney complications Diabetes mellitus complication detail: with diabetic microalbuminuria
[2025-04-08 11:22] VITALS: BMI 25.3
[2025-04-08 11:32] LABS: Glucose, Whole Blood 252 mg/dL (60-115)
--- OUTSIDE RECORDS SUMMARY | 2025-04-08 12:06 | XMS_ITS | Clinical Summary ---
Author Organization [facility] Address [address] [place] [phone] Phone Care Team Providers Care Speeder Machine Operator Name Role Phone Gila Bragg MD Primary Care Provider [phone] Allergies No known active allergies Medications cyclobenzaprine (FLEXERIL) 10 mg tablet Take 1 tablet (10 mg total) by mouth 2 (two) times a day if needed for muscle spasms for up to 5 days. 10 tablet 12/14/2024 Active Medical History Medical History Date Comments Diabetes mellitus (CMS/HCC V24, CMS/[facility] V28) Fibromyalgia Social History Tobacco Use Types [...] patient's age to complete this topic Insurance [facility] Care Teams Speeder Machine Operator Relationship Specialty Start Date End Date Gila Bragg MD [address] [place] [phone] PCP - General Internal Medicine 06/21/21
== END 2025-04-08 12:00 | disposition home or self-care (01) ==
LOC: HO.ENCR 11:09
PROVIDERS: PCP Internal Medicine; Visit Provider Physician Assistant Medical
DX: E11.29 Type 2 diabetes mellitus with other diabetic kidney complication (principal); R80.9 Proteinuria, unspecified

== ENCOUNTER → 2025-04-08 11:08 | Outpatient (BNVA) | payer OTHER, SELFPAY | PROVIDERS: PCP Internal Medicine; Visit Provider Physician Assistant Medical | DX: E11.29 Type 2 diabetes mellitus with other diabetic kidney complication (principal); R80.9 Proteinuria, unspecified; K21.9 Gastro-esophageal reflux disease without esophagitis | CPT/HCPCS: 82947; 99212 ==

== ENCOUNTER 2025-04-28 08:24 | Outpatient (REF) | payer OTHER, SELFPAY ==
--- NOTE | ~2025-04-28 | XR_ITS ---
EXAMINATION: XR CERVICAL SPINE CLINICAL INFORMATION: M54.2 - Cervicalgia COMPARISON: September 17, 2016. TECHNIQUE: AP oblique lateral and atlantoodontoid views. Lateral views during flexion and extension position. FINDINGS: Craniocervical junction is intact. Marginal osteophyte formation decreased intervertebral disc height C6-7 and to a lesser extent C4-5 and C5-6 levels. No gross malalignment. No malalignment during flexion and extension position. No lytic or blastic lesions. XR/XR cervical spine w flex/ext IMPRESSION: Multilevel cervical spondylosis pronounced at C6-7 without acute fracture or gross listhesis. No instability. Electronically signed by: Memo Schroeder MD 04/28/2025 10:40 AM EDT
--- NOTE | ~2025-04-28 | XR_ITS ---
EXAMINATION: X-ray lumbar spine. CLINICAL INFORMATION: Dorsalgia. TECHNIQUE: AP oblique and lateral views. COMPARISON: June 28, 2017. FINDINGS: No acute cortical disruption or malalignment. Facet joint hypertrophy at L5-S1. Osteopenia versus the process. Spina bifida occulta S1. XR/XR lumbar spine 4V min IMPRESSION: Mild multilevel spondylosis without acute fracture or listhesis no gross change. Electronically signed by: Memo Schroeder MD 04/28/2025 10:37 AM EDT
--- NOTE | ~2025-04-28 | XR_ITS ---
EXAMINATION: XR PELVIS CLINICAL INFORMATION: M25.551 - Pain in right hip COMPARISON: None available. TECHNIQUE: AP and lateral views of the pelvis. FINDINGS: Bony pelvis is intact. Coxofemoral joints are intact with normal alignment. Spina bifida occulta S1. Mild degenerative changes in the symphysis pubis. Osteopenia versus osteoporosis. XR/XR pelvis 1-2V IMPRESSION: No acute fracture. Electronically signed by: Memo Schroeder MD 04/28/2025 10:36 AM EDT
== END 2025-04-28 08:25 | disposition home or self-care (01) ==
LOC: HO.XRAY 08:24
PROVIDERS: PCP Internal Medicine; Referring Provider Internal Medicine; Visit Provider Registered Nurse Emergency
DX: M54.9 Dorsalgia, unspecified (principal); M54.2 Cervicalgia; G89.4 Chronic pain syndrome
CPT/HCPCS: 72052; 72110; 72170; 99202

== ENCOUNTER 2025-04-28 08:24 | Outpatient (AMB) | payer OTHER, SELFPAY ==
--- OUTSIDE RECORDS SUMMARY | 2025-04-28 08:44 | XMS_ITS | Clinical Summary ---
Author Organization [facility] Address [address] [place] [phone] Phone Care Team Providers Care Youth Advocate Name Role Phone Gila Bragg MD Primary Care Provider [phone] Allergies No known active allergies Medications cyclobenzaprine (FLEXERIL) 10 mg tablet Take 1 tablet (10 mg total) by mouth 2 (two) times a day if needed for muscle spasms for up to 5 days. 10 tablet 12/14/2024 Active Medical History Medical History Date Comments Diabetes mellitus (CMS/HCC V24, CMS/[facility] V28) Fibromyalgia Social History Tobacco Use Types [...] 70 12/14/2024 7:48 AM EST Temperature 37.2 C (98.9 F) 12/14/2024 7:48 AM EST Respiratory Rate 16 12/14/2024 7:48 AM EST [...] patient's age to complete this topic Insurance [facility] Care Teams Youth Advocate Relationship Specialty Start Date End Date Gila Bragg MD [address] [place] [address] PCP - General Internal Medicine 06/21/21
[2025-04-28 08:45] VITALS: BP 139/74; PULSE 77; RESP 16; O2SAT 98; BMI 24.4
--- NOTE | 2025-04-28 08:45 | A.OFFVIS_ITS ---
Vital Signs 04/28/25 08:45 Height 5 ft 3 in Weight 138 lb BMI 24.4 BP 139/74 Blood Pressure Location Lt brachial Position Sitting Respiration 16 Pulse 77 Pulse Source Pulse Oximeter Pulse Oximetry (%) 98 Oxygen Delivery Method Room Air Intake Visit Reasons: Other chronic pain Appeals Rn Required: Yes Appeals Rn Name: Daisha [id number] Accompanied by: Self / Same As Patient Allergies lisinopril Allergy (Unknown, Verified 04/28/25 08:49) rash gabapentin Adverse Reaction (Mild, Verified 04/28/25 08:49) Unable to control pain HPI Comments Details: The patient is a 64-year-old female presenting with chronic pain management. She reports experiencing pain in the joints of her neck, arms, hands, and the soles of her feet for approximately two years. She also endorses inflammation, tenderness to palpation across bilateral trapezius muscles. The pain is associated with fibromyalgia, which she has been diagnosed with. The patient has attempted physical therapy in the past, but it did not provide relief. She has not undergone any needling therapies or x-rays of her neck area. She experiences swelling in her back and has been unable to sleep for three weeks. The patient is currently taking pregabalin 175 mg twice a day, but reports it is ineffective in managing her pain. She does not take any anti-inflammatory medications or muscle relaxers. She uses cannabis-derived gums for pain relief. The patient reports that her pain worsens with prolonged sitting and improves with avoidance of heavy lifting. The patient has a history of diabetes, but no known issues with blood pressure, kidneys, or liver. - Pain located in joints of neck, arms, hands, and soles of feet - Duration of pain is approximately two years - Pain worsens with prolonged sitting and improves with avoidance of heavy lifting - Experiences numbness in legs when standing after sitting for extended periods - Uses cannabis-derived gums for pain relief - Affect: Reports feeling desperate and crying due to pain - Analgesia: Currently taking pregabalin 175 mg twice daily, but reports it is ineffective - Adverse Effects: None reported - Activities of Daily Living: Pain interferes with ability to perform tasks, such as making a fist or holding objects - Aberrant Drug Related Behaviors: None reported [facility] Medical History Hypoglycemia Controlled type 2 diabetes mellitus Needle phobia Diabetes mellitus with hyperglycemia Fibromyalgia Encounter for general adult medical examination with abnormal findings Anxiety, generalized Vitamin D deficiency Back spasm Hypertension, essential Surgical History History of abdominal hysterectomy Family History Father Parkinson disease Mother Osteoporosis HTN (hypertension) Maternal Grandmother Cancer of kidney Maternal Grandfather Stroke Brother No problems noted. Brother No problems noted. Brother No problems noted. Sister No problems noted. Sister No problems noted. Sister No problems noted. Son No problems noted. Son No problems noted. Daughter No problems noted. Social History Housing: Apartment Alcohol intake: never Patient Tobacco Use Status: Never used Tobacco e-Cigarette/Vaping Use: Never Used service: No Current occupational status: employed Cognitive needs: No Hearing needs: No Vision needs: No Review of Systems Const Details: - Musculoskeletal: Reports joint pain in arms, hands, and soles of feet. Muscular neck pain - Neurological: Reports numbness in legs when standing after sitting for extended periods - Sleep: Reports insomnia for three weeks - Endocrine: Reports history of diabetes Physical Exam Vital Signs: Last Vital Signs Pulse 77 04/28/25 08:45 Resp 16 04/28/25 08:45 BP 139/74 04/28/25 08:45 Pulse Ox 98 04/28/25 08:45 Oxygen Delivery Method Room Air 04/28/25 08:45 BMI result Body Mass Index 24.4 General: awake, alert, oriented. Answers questions appropriately. Fully engaged in examination. Skin: warm, dry, intact HEENT: Normocephalic. Hearing intact. Cardiac: External chest normal in appearance. Respiratory: No cough, audible wheezing or stridor. Abdomen: without gross distension. MS: No obvious swelling or deformities. Able to transition from sit to stand unassisted. Ambulates with bilaterally normal heel strike and toe off Tenderness to palpation across upper middle trapezius bilaterally. Decreased cervical range of motion Neurological: Oriented to person, place, time and situation. Thought process intact. No gait abnormalities appreciated. Psychiatric: Appropriate mood and affect. Good judgment and insight. Assessment & Plan Assessment & Plan (1) Chronic pain syndrome: Code(s): G89.4 - Chronic pain syndrome Category: Medical (2) Cervicalgia: Code(s): M54.2 - Cervicalgia Category: Medical (3) Myofascial neck pain: Code(s): M54.2 - Cervicalgia Category: Medical Plan I discussed with the patient the plan to order x-rays for her neck, back and pelvis to better understand the source of her pain. We talked about starting physical therapy with dry needling in [place], which may help relieve her muscle tension and pain. I also explained the use of a muscle relaxer to help with her muscle spasms and improve her sleep, advising her to avoid driving due to potential drowsiness. Additionally, I will provide an anti-inflammatory cream for her to apply to painful areas. I instructed her to follow up with me after completing her physical therapy and dry needling sessions to evaluate her progress and make any necessary adjustments to her treatment plan. Patient was informed and verbally consented to the use of an ambient scribe for clinic note documentation during this visit. Orders: Orders XR lumbar spine 4V min Today M54.9 - Dorsalgia, unspecified PT Evaluation and Treatment Today G89.4 - Chronic pain syndrome, M54.2 - Cervicalgia XR cervical spine w flex/ext Today M54.2 - Cervicalgia Medications: New tizanidine Discontinue Cyclobenzaprine prior to starting this medication. No driving while taking this medication. May cause drowsiness. Do not take with alcohol or other TANK CHARGER Depressants. 2 mg PO TID PRN 90 tabs 1RF muscle spasticity diclofenac sodium 3% apply to most painful area twice daily as needed for pain 1 appl topical BID 100 grams 0RF Patient Instructions: - Get x-rays done for neck, back, hips, and pelvis as soon as possible. - Attend physical therapy sessions in [place], including dry needling. - Use the prescribed muscle relaxer at bedtime to help with sleep, but avoid driving if feeling drowsy. - Apply anti-inflammatory cream to painful areas as needed. - Follow up with the clinician after completing physical therapy and dry needling sessions. Coding Level of Care Code New Pt Level 4 (97401) Complex EM visit Add On G2211 Diagnoses Chronic pain syndrome G89.4 Cervicalgia M54.2 Myofascial neck pain M54.2
== END 2025-04-28 09:22 | disposition home or self-care (01) ==
LOC: HO.PMC 08:30
PROVIDERS: PCP Internal Medicine; Referring Provider Internal Medicine; Visit Provider Registered Nurse Emergency
DX: G89.4 Chronic pain syndrome (principal); M54.2 Cervicalgia
CPT/HCPCS: 99204; G2211

== ENCOUNTER → 2025-04-28 09:37 | Outpatient (BNV) | payer OTHER, SELFPAY | PROVIDERS: PCP Internal Medicine; Referring Provider Internal Medicine; Visit Provider Radiology Diagnostic Radiology | DX: M50.323 Other cervical disc degeneration at C6-C7 level (principal); M47.817 Spondylosis without myelopathy or radiculopathy, lumbosacral region; M25.551 Pain in right hip | CPT/HCPCS: 72052; 72110; 72170 ==

== ENCOUNTER 2025-05-06 11:06 | Outpatient (AMB) | payer OTHER, SELFPAY ==
--- NOTE | 2025-05-06 11:11 | MHC.OFFVIS ---
Vital Signs 05/06/25 11:14 Height 5 ft 3 in Weight 143 lb 8.335 oz BMI 25.4 BP 110/70 Blood Pressure Location Rt brachial Position Sitting Pulse 77 Pulse Source Pulse Oximeter Pulse Oximetry (%) 97 Oxygen Delivery Method Room Air Intake Visit Reasons: Type II diabetes Intake Note: Patient present today to follow up on Type 2 Diabetes Mellitus. Patient c/o of acid reflux after taking Metformin. Last Diabetic Eye exam: 09/28/2024 Last Podiatry Visit: Does not see a [employer] Random Glucose: 168 mg/dl HgA1C: 6.6% 03/30/2025 Technical Support Manager Required: Yes Technical Support Manager Language: Be[employer] Services: Technical Support Manager Present Technical Support Manager Name: Jasvir [id number] Information Interpreted: non-clinical & clinical Accompanied by: Self / Same As Patient Allergies lisinopril Allergy (Unknown, Verified 05/06/25 11:15) rash gabapentin Adverse Reaction (Mild, Verified 05/06/25 11:15) Unable to control pain Medication List - Last Reconciled 05/06/25 by CHENG La albuterol sulfate 0.63 mg (3 mL) inhalation QID PRN amlodipine 10 mg PO DAILY aspirin (Adult Low Dose Aspirin) 81 mg PO DAILY atorvastatin 40 mg PO BEDTIME [Blood pressure monitor As directed] blood sugar diagnostic (Inventicuch Verio test strips) Use as directed to check blood glucose twice daily. blood-glucose meter (WaviiTouch Verio Flex Meter) As directed blood-glucose sensor (FreeStyle Becky 3 Plus Sensor device) apply new sensor every 14 days to monitor glucose continuously blood-glucose,commercial lines manager,cont (FreeStyle Becky 3 [place]) use as directed to monitor blood glucose continuously cyclobenzaprine 10 mg PO BEDTIME PRN diclofenac sodium 3% 1 appl topical BID ergocalciferol (vitamin D2) 50 mcg PO DAILY escitalopram oxalate 10 mg PO DAILY 90 days glucose (Dex4 Glucose) 16 grams (4 x 4 gram) PO Q15M PRN lancets (WaviiTouch Delica Plus Lancet) Use lancet 3 times daily with meter to check blood glucose. losartan 25 mg PO DAILY metformin ER 1,500 mg (3 x 500 mg) PO DAILY nut.tx.gluc.intol,lac-free,soy (Glucerna oral liquid) 1 ea PO DAILY 28 days pregabalin 150 mg PO BEDTIME 90 days tizanidine 2 mg PO TID PRN [Updraft machine As directed] HPI Comments Details: This is a 64-year-old female with a past medical history of asthma, chronic pain, needle phobia, depression and anxiety, hypertension, fibromyalgia and hyperlipidemia presenting for diabetic management. She denies family history of type 1 and type 2 diabetes. C-peptide normal 2.47, MINDY and islet cell antibody negative and BNP within normal range 09/03/2024. Hemoglobin A1c 6.6% 03/30/2025. I reviewed the patient's Becky 3 data from April 23 to May 06 CGM active 89% Average glucose 195 GMI 8% Glucose variability 26.8% Very high 14% High 44% Target range 42% 0% hypoglycemia She has postprandial and nocturnal hyperglycemia. She was taking care of her mother in [place] for a couple months. She was not able to take medicine consistently or follow her normal diet. Since then she has had some dietary indiscretion. Current medication regimen: Metformin ER 500 mg once daily. She increased to 2 tablets 5 days ago, but the 7 day target range readings are only 36%. Past medication: Lantus discontinued due to hypoglycemia. Hypoglycemia symptoms: Denies episodes within the past couple of months. Hyperglycemia symptoms: dry mouth Microvascular complications: neuropathy, nephropathy (microalbuminuria) Macrovascular complications: No known Hypertension: treated with amlodipine and losartan. Hyperlipidemia: treated with atorvastatin. LDL at goal. ROS: Constitutional: No fevers, chills or night sweats. Eyes: No double vision or loss of vision or current blurry vision. Respiratory: No shortness of breath Cardiovascular: No chest pain Gastrointestinal: No anorexia, nausea, vomiting or diarrhea. No abdominal pain Neurologic: No headache, dizziness, syncope Skin: No open wounds. Physical exam: Constitutional: Alert, in no distress. Neck: Supple, Full range of motion. No lymphadenopathy. No palpable thyroid masses. Respiratory: Clear to auscultation. Cardiovascular: S1 S2 regular. No murmurs. [facility] Medical History Hypoglycemia Controlled type 2 diabetes mellitus Needle phobia Diabetes mellitus with hyperglycemia Fibromyalgia Encounter for general adult medical examination with abnormal findings Anxiety, generalized Vitamin D deficiency Back spasm Hypertension, essential Surgical History History of abdominal hysterectomy Family History Father Parkinson disease Mother Osteoporosis HTN (hypertension) Maternal Grandmother Cancer of kidney Maternal Grandfather Stroke Brother No problems noted. Brother No problems noted. Brother No problems noted. Sister No problems noted. Sister No problems noted. Sister No problems noted. Son No problems noted. Son No problems noted. Daughter No problems noted. Social History Housing: Apartment Alcohol intake: never Patient Tobacco Use Status: Never used Tobacco e-Cigarette/Vaping Use: Never Used service: No Current occupational status: employed Cognitive needs: No Hearing needs: No Vision needs: No Physical Exam Vital Signs: Last Vital Signs Pulse 77 05/06/25 11:14 BP 110/70 05/06/25 11:14 Pulse Ox 97 05/06/25 11:14 Oxygen Delivery Method Room Air 05/06/25 11:14 BMI result Body Mass Index 25.4 Office Procedures Glucose Monitoring Details Details: See [facility] - Glucose monitoring, continuous-physician I&R Procedure code (CPT) selection complete Results Reviewed Results Reviewed: Laboratory Last Values Glucose (Clinic) 168 mg/dL (60-115) H 05/06/25 11:19 Laboratory Tests 11/16/24 03/30/25 16:12 10:12 Plt Count 318 Creatinine 0.73 Estimated GFR > 60 Hemoglobin A1c % 6.6 H AST 24 ALT 32 H LDL Cholesterol Direct 68 TSH 1.42 Urine Creatinine 34.44 Urine Microalbumin 11.0 Microalb/Creat Ratio 31.9 H Assessment & Plan Assessment & Plan (1) Controlled type 2 diabetes mellitus: Code(s): E11.9 - Type 2 diabetes mellitus without complications Category: Medical Qualifiers: Diabetes mellitus complication detail: with diabetic microalbuminuria Diabetes mellitus complication status: with kidney complications Diabetes mellitus intermediate insulin use: without intermediate use Qualified Code(s): E11.29 - Type 2 diabetes mellitus with other diabetic kidney complication; R80.9 - Proteinuria, unspecified Plan In summary this is a 64-year-old female with suboptimally controlled type 2 diabetes. Increase metformin extended release to 1500 mg daily. She has seen the dietitian. She will implement the recommendations again. She is exercising. Reviewed treatment of hypo and hyperglycemia. She has glucose tablets. If you experience low blood sugar, treat this by eating a chewable fruit candy like skittles or jelly beans (about 8 pieces), 4 ounces (1/2 cup) of fruit juice (not diet), 1 tablespoon of honey or 4 glucose tablets. If your blood sugar is under 55, take double the amount of one of the above. Recheck your blood sugar in 15 minutes. Follow up in 6 weeks for type 2 diabetes. Orders: Orders AMB Glucose Monitoring Today E11.9 - Type 2 diabetes mellitus without complications Medications: New blood sugar diagnostic (OneTouch Verio test strips) Use as directed to check blood glucose twice daily. 100 ea 5RF Changed From metformin ER 500 mg PO DAILY 90 tabs 3RF To metformin ER 1,500 mg (3 x 500 mg) PO DAILY 90 tabs 1RF Discontinued [strips one touch Verio] Discontinued Reason: Doctor's Order Use 1 strip 3 times daily to check blood glucose. 100 ea 1RF diabetes E11.65 - Type 2 diabetes mellitus with hyperglycemia Coding Level of Care Code Est Pt Level 4 (97606) Diagnoses Controlled type 2 diabetes mellitus with microalbuminuria, without long-term current use of insulin E11.29; R80.9 Diabetes mellitus complication detail: with diabetic microalbuminuria Diabetes mellitus complication status: with kidney complications Diabetes mellitus long term acute care registered nurse insulin use: without intermediate use CPT Codes Details - CPT: 39670 - Glucose monitoring, continuous-physician I&R ([id number])
[2025-05-06 11:14] VITALS: BP 110/70; PULSE 77; O2SAT 97; BMI 25.4
[2025-05-06 11:22] LABS: Glucose, Whole Blood 168 mg/dL (60-115)
--- OUTSIDE RECORDS SUMMARY | 2025-05-06 12:20 | XMS_ITS | Clinical Summary ---
Author Organization [facility] Address [address] [place] [phone] Phone Care Team Providers Care Shortage Worker Name Role Phone Gila Bragg MD Primary Care Provider [phone] Allergies No known active allergies Medications cyclobenzaprine (FLEXERIL) 10 mg tablet Take 1 tablet (10 mg total) by mouth 2 (two) times a day if needed for muscle spasms for up to 5 days. 10 tablet 12/14/2024 Active Medical History Medical History Date Comments Diabetes mellitus (CMS/HCC V24, CMS/[facility] V28) Fibromyalgia Social History Tobacco Use Types [...] patient's age to complete this topic [place] [phone] Care Teams Shortage Worker Relationship Specialty Start Date End Date Gila Bragg MD [address] [place] [address] PCP - General Internal Medicine 06/21/21
== END 2025-05-06 11:52 | disposition home or self-care (01) ==
LOC: HO.ENCR 11:07
PROVIDERS: PCP Internal Medicine; Visit Provider Physician Assistant Medical
DX: E11.29 Type 2 diabetes mellitus with other diabetic kidney complication (principal); R80.9 Proteinuria, unspecified

== ENCOUNTER → 2025-05-06 11:06 | Outpatient (BNVA) | payer OTHER, SELFPAY | PROVIDERS: PCP Internal Medicine; Visit Provider Physician Assistant Medical | DX: E11.29 Type 2 diabetes mellitus with other diabetic kidney complication (principal); R80.9 Proteinuria, unspecified; Z79.84 Long term (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 of oral hypoglycemic drugs | CPT/HCPCS: 82947; 99212 ==

== ENCOUNTER 2025-06-08 08:00 | Outpatient (REF) | payer OTHER, SELFPAY ==
--- NOTE | ~2025-06-08 | MM_ITS ---
EXAMINATION: DXA BONE DENSITY AXIAL HISTORY: M85.80 - Other specified disorders of bone density and structure, unspecified... TECHNIQUE: [employer]Depot Dual energy absorptiometry (DEXA) of the lumbar spine, total left hip, and femoral neck was performed. COMPARISON: There are no prior studies for comparison. FINDINGS: The bone mineral density of the lumbar spine is 0.792 g/cm2, corresponding to a T-score of -3.2, and a Z-score of -1.8. This is indicative of osteoporosis. The bone mineral density of the left total hip is 0.867 g/cm2, corresponding to a T-score of -1.1, and a Z-score of 0.0. This is indicative of osteopenia. The bone mineral density of the left femoral neck is 0.838 g/cm2, corresponding to a T-score of -1.4, and a Z-score of -0.1. This is indicative of osteopenia. MM/XR DEXA axial skeleton IMPRESSION: Based on bone mineral density, and according to World Health Organization (WHO) criteria, the diagnosis is consistent with osteoporosis. Statistically, 68% of repeat scans fall within 1 SD (+/- 0.010 g/cm2 for AP spine L1-L4) and 1 SD (+/- 0.012 g/cm2 for femur total) FRAX is a trademark of the [employer] for Metabolic Bone Disease, a World Health Organization (WHO) Collaborating Center. Electronically signed by: Duarte Espinoza MD 06/08/2025 09:13 AM EDT
--- OUTSIDE RECORDS SUMMARY | 2025-06-08 08:05 | XMS_ITS | Clinical Summary ---
Author Organization [facility] Address [address] [place] [phone] Phone Care Team Providers Care Loom Inspector Name Role Phone Gila Bragg MD Primary Care Provider [phone] Allergies No known active allergies Medications cyclobenzaprine (FLEXERIL) 10 mg tablet Take 1 tablet (10 mg total) by mouth 2 (two) times a day if needed for muscle spasms for up to 5 days. 10 tablet 12/14/2024 Active Medical History Medical History Date Comments Diabetes mellitus (CMS/HCC V24, CMS/[facility] V28) Fibromyalgia Social History Tobacco Use Types [...] 2) 2012 Colorectal Cancer Screening: Colonoscopy 10/07/2022 HIV Screening 10/07/2022 Hepatitis C Screening 10/07/2022 Social Influencers of Health Screening 10/07/2022 COVID-19 Vaccine (1 - 2023-2 5 season) 2024 Depression Screening 11/10/2024 Influenza Vaccine (#1) 2025 RSV Immunization Adult Patie nts (1 [...] patient's age to complete this topic Insurance [place] [id number] Care Teams Loom Inspector Relationship Specialty Start Date End Date Gila Bragg MD [address] [place] [phone] PCP - General Internal Medicine 06/21/21
== END 2025-06-08 08:01 | disposition home or self-care (01) ==
LOC: HO.MAMMO 08:00
PROVIDERS: PCP Internal Medicine; Visit Provider Registered Nurse Emergency
DX: Z13.820 Encounter for screening for osteoporosis (principal); M81.0 Age-related osteoporosis without current pathological fracture; M85.89 Other specified disorders of bone density and structure, multiple sites
CPT/HCPCS: 77080

== ENCOUNTER → 2025-06-08 08:45 | Outpatient (BNV) | payer OTHER, SELFPAY | PROVIDERS: PCP Internal Medicine; Visit Provider Radiology Diagnostic Radiology | DX: E28.39 Other primary ovarian failure (principal) | CPT/HCPCS: 77080 ==

== ENCOUNTER 2025-07-06 07:58 | Outpatient (AMB) | payer OTHER, SELFPAY ==
--- OUTSIDE RECORDS SUMMARY | 2025-07-06 08:01 | XMS_ITS | Clinical Summary ---
Author Organization [facility] Address [address] [place] [phone] Phone Care Team Providers Care Rug Shampooer Name Role Phone Gila Bragg MD Primary Care Provider [phone] Allergies No known active allergies Medications cyclobenzaprine (FLEXERIL) 10 mg tablet Take 1 tablet (10 mg total) by mouth 2 (two) times a day if needed for muscle spasms for up to 5 days. 10 tablet 12/14/2024 Active Medical History Medical History Date Comments Diabetes mellitus (CMS/HCC V24, CMS/[facility] V28) Fibromyalgia Social History Tobacco Use Types [...] patient's age to complete this topic Insurance [facility] [id number] Care Teams Rug Shampooer Relationship Specialty Start Date End Date Gila Bragg MD [address] [place] [phone] PCP - General Internal Medicine 06/21/21
[2025-07-06 08:10] VITALS: BP 124/72; PULSE 81; RESP 16; TEMP 36.7; O2SAT 98; BMI 24.4
--- NOTE | 2025-07-06 08:10 | MHC.PC.OV ---
Vital Signs 07/06/25 08:10 Height 5 ft 3 in Weight 138 lb BMI 24.4 BP 124/72 Blood Pressure Location Rt brachial Position Sitting Respiration 16 Pulse 81 Pulse Source Pulse Oximeter Temp 98.1 F Temp Source Oral Pulse Oximetry (%) 98 Oxygen Delivery Method Room Air Intake Visit Reasons: CATATACTS @ [facility] [place] H&P, no ekg or labs Allergies lisinopril Allergy (Unknown, Verified 07/06/25 08:15) rash gabapentin Adverse Reaction (Mild, Verified 07/06/25 08:15) Unable to control pain Medication List - Last Reconciled 07/06/25 by Gila Bragg MD albuterol sulfate 0.63 mg (3 mL) inhalation QID PRN amlodipine 10 mg PO DAILY aspirin (Adult Low Dose Aspirin) 81 mg PO DAILY atorvastatin 40 mg PO BEDTIME [Blood pressure monitor As directed] blood sugar diagnostic (FreeStyle Lite Strips) As directed to check glucose 2 times daily blood-glucose meter (FreeStyle Lite Meter kit) As directed to monitor blood sugar blood-glucose sensor (FreeStyle Becky 3 Plus Sensor device) apply new sensor every 14 days to monitor glucose continuously blood-glucose,skidder driver,cont (FreeStyle Becky 3 Taylor) use as directed to monitor blood glucose continuously diclofenac sodium 3% 1 appl topical BID ergocalciferol (vitamin D2) 50 mcg PO DAILY escitalopram oxalate 10 mg PO DAILY 90 days glucose (Dex4 Glucose) 16 grams (4 x 4 gram) PO Q15M PRN lancets (FreeStyle Lancets) Use to monitor blood glucose 2 times daily. losartan 25 mg PO DAILY metformin ER 1,500 mg (3 x 500 mg) PO DAILY nut.tx.gluc.intol,lac-free,soy (Glucerna oral liquid) 1 ea PO DAILY 28 days pregabalin 150 mg PO BEDTIME 90 days tizanidine 2 mg PO TID PRN [Updraft machine As directed] Tobacco use date assessed: 07/06/25 Dental Screening Dental Screen Date: 01/14/25 HPI CATATACTS @ [place] only H&P, no ekg or labs HPI Details Chief Complaint Preoperative assessment for cataract surgery on July 15. At [facility] History The patient is a 64-year-old female presenting with preoperative concerns for cataract surgeries. Cataract: - Patient scheduled for cataract surgery on the right eye on July 15, and on the left eye on August 04. - Preoperative evaluation requested as part of the surgical preparation. - No current issues reported related to the eye health as mentioned in the conversation. Hypertension: - Reports that blood pressure is well-controlled with a recent reading of 124/72 mmHg. - Patient is on amlodipine 10 mg and losartan 25 mg daily, indicating ongoing management for hypertension. Diabetes Mellitus: - fasting sugar was 140 this morning - Hemoglobin A1c noted at 6.6% as per the recent education associate visit. - Medications include metformin for diabetes management. Myofascial Pain Syndrome: - History of myofascial pain syndrome with associated symptoms of generalized pain. - Patient reports continued use of pregabalin 150 mg, which has been helping with pain management. Asthma: - History of asthma with current status reportedly stable without breathing difficulties. [facility] Medical History Hypoglycemia Controlled type 2 diabetes mellitus Needle phobia Diabetes mellitus with hyperglycemia Fibromyalgia Encounter for general adult medical examination with abnormal findings Anxiety, generalized Vitamin D deficiency Back spasm Hypertension, essential Surgical History History of abdominal hysterectomy Family History Father Parkinson disease Mother Osteoporosis HTN (hypertension) Maternal Grandmother Cancer of kidney Maternal Grandfather Stroke Brother No problems noted. Brother No problems noted. Brother No problems noted. Sister No problems noted. Sister No problems noted. Sister No problems noted. Son No problems noted. Son No problems noted. Daughter No problems noted. Social History Housing: Apartment Alcohol intake: never Patient Tobacco Use Status: Never used Tobacco e-Cigarette/Vaping Use: Never Used service: No Current occupational status: employed Cognitive needs: No Hearing needs: No Vision needs: No Questionnaire Thrive Questionnaire Date Thrive assessed: 11/21/24 I am a: Patient What is your living situation today?: I have a steady place to live Within the past 12 months, did the food you bought not last and you didn't have the money to get more?: Sometimes True Within the past 12 months, did you worry whether your food would run out before you got money to buy more?: Often true Do you have trouble paying for medicines?: No Do you have trouble getting transportation to medical appointments?: No Do you have trouble paying your heating and electricity bill?: Yes Do you have trouble taking care of your child, family member or friend?: No Do you have trouble with day-to-day activities such as bathing, preparing meals, shopping, managing finances, etc.?: No Are you currently unemployed and looking for a job?: Yes Are you interested in more education?: Yes Currently or been in a relationship where the following occur: I choose not to answer THRIVE Score: 3 MINDY-7 AMB Questionnaire MINDY-7 Date MINDY - 7 assessed: 11/24/24 Source: Developed by Drs. Duarte Coleman, Megan Wilson, George Hernandez and colleagues, with an educational chris from [employer]. Review of Systems Const Denies chills and Denies fever(s) ENT Denies epistaxis and Denies nasal discharge Card Denies chest pain Resp Denies chest congestion, Denies cough and Denies hemoptysis GI Denies diarrhea and Denies nausea Skin/Breast Denies rash Neuro Reports no additional complaints Psych Reports no additional complaints Endo Reports no additional complaints Physical exam (Primary Care) Vital Signs: Last Vital Signs Temp 98.1 F 07/06/25 08:10 Pulse 81 07/06/25 08:10 Resp 16 07/06/25 08:10 BP 124/72 07/06/25 08:10 Pulse Ox 98 07/06/25 08:10 Oxygen Delivery Method Room Air 07/06/25 08:10 BMI result Body Mass Index 24.4 Tobacco/Smoking Status: Tobacco use Status Tobacco use date assessed 07/06/25 07/06/25 08:16 Patient Tobacco Use Status Never used Tobacco 07/06/25 08:16 e-Cigarette/Vaping Use Never Used 07/06/25 08:16 Thrive Assessment: Date of Thrive Assessment Date Thrive assessed 11/21/24 07/06/25 08:16 Currently or been in a relationship where the following occur: I choose not to answer Const General: cooperative, comfortable and no acute distress Orientation/consciousness: patient oriented x3 HENMT Head: Yes normocephalic Eyes General: appearance normal, both eyes and all related structures Neck Neck: Yes supple Resp Effort & Inspection: normal respiratory effort, no cough and no stridor Cardio Rhythm: regular rhythm Heart sounds: S1 normal heart sound present and S2 normal heart sound present Skin General skin exam: turgor normal Neuro General: patient oriented x3, tone normal and moves all extremities Extrem Right lower extremity: no edema Left lower extremity: no edema Coding Level of Care Code Est Pt Level 4 (87484) Diagnoses Pre-op evaluation Z01.818 Other age-related cataract of both eyes H25.89 Cataract type: age-related Age-related cataract type: other Hypertension, essential I10 Type 2 diabetes mellitus with diabetic microalbuminuria, with long-term current use of insulin E11.29; R80.9; Z79.4 Diabetes mellitus complication detail: with diabetic microalbuminuria Diabetes mellitus complication status: with kidney complications Diabetes mellitus professional bondsman insulin use: with [facility] use Lipid disorder E78.9 Recurrent major depressive disorder, in partial remission F33.41 Active/Remission status: in partial remission Fibromyalgia M79.7 Moderate persistent asthma without complication J45.40 Asthma complication type: uncomplicated Chronic generalized pain R52; G89.29 Time Spent (min) 30 Assessment & Plan Assessment & Plan (1) Pre-op evaluation: Code(s): Z01.818 - Encounter for other preprocedural examination Category: Medical (2) Cataract, bilateral: Code(s): H26.9 - Unspecified cataract Category: Medical Qualifiers: Cataract type: age-related Age-related cataract type: other Qualified Code(s): H25.89 - Other age-related cataract (3) Hypertension, essential: Code(s): I10 - Essential (primary) hypertension Category: Medical (4) Type 2 diabetes mellitus: Code(s): E11.9 - Type 2 diabetes mellitus without complications Category: Medical Qualifiers: Diabetes mellitus complication detail: with diabetic microalbuminuria Diabetes mellitus complication status: with kidney complications Diabetes mellitus [facility] insulin use: with [facility] use Qualified Code(s): E11.29 - Type 2 diabetes mellitus with other diabetic kidney complication; R80.9 - Proteinuria, unspecified; Z79.4 - long term care pharmacist (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 of insulin (5) Lipid disorder: Code(s): E78.9 - Disorder of lipoprotein metabolism, unspecified Category: Medical (6) Major depression, recurrent: Code(s): F33.9 - Major depressive disorder, recurrent, unspecified Category: Medical Qualifiers: Active/Remission status: in partial remission Qualified Code(s): F33.41 - Major depressive disorder, recurrent, in partial remission (7) Fibromyalgia: Code(s): M79.7 - Fibromyalgia Category: Medical (8) Asthma, moderate persistent: Code(s): J45.40 - Moderate persistent asthma, uncomplicated Category: Medical Qualifiers: Asthma complication type: uncomplicated Qualified Code(s): J45.40 - Moderate persistent asthma, uncomplicated (9) Chronic generalized pain: Code(s): R52 - Pain, unspecified; G89.29 - Other chronic pain Category: Medical Plan Chief Complaint Preoperative assessment for cataract surgery on July 15. At [facility] History The patient is a 64-year-old female presenting with preoperative concerns for cataract surgeries. Cataract: - Patient scheduled for cataract surgery on the right eye on July 15, and on the left eye on August 04. - Preoperative evaluation requested as part of the surgical preparation. - No current issues reported related to the eye health as mentioned in the conversation. Hypertension: - Reports that blood pressure is well-controlled with a recent reading of 124/72 mmHg. - Patient is on amlodipine 10 mg and losartan 25 mg daily, indicating ongoing management for hypertension. Diabetes Mellitus: - fasting sugar was 140 this morning - Hemoglobin A1c noted at 6.6% as per the recent education associate visit. - Medications include metformin for diabetes management. Myofascial Pain Syndrome: - History of myofascial pain syndrome with associated symptoms of generalized pain. - Patient reports continued use of pregabalin 150 mg, which has been helping with pain management. Asthma: - History of asthma with current status reportedly stable without breathing difficulties. Medical History: - Fibromyalgia - Depression, managed with Lexapro 10 mg - Lipid disorder, managed with atorvastatin 40 mg - Migraine headaches - Anxiety disorder - Essential hypertension - Type 2 diabetes mellitus - Myofascial pain syndrome - Asthma Surgical History: - Cataract surgery scheduled (right eye July 15, left eye August 04) Diagnostic Results: - Labs: Hemoglobin A1c at 6.6% from a recent endocrinology visit. Medications - Amlodipine 10 mg for hypertension - Atorvastatin 40 mg for lipid disorder - Lexapro 10 mg for depression - Losartan 25 mg for hypertension - Metformin for diabetes management - Pregabalin 150 mg for myofascial pain Problem List - Cataract - Essential Hypertension - Type 2 Diabetes Mellitus - Myofascial Pain Syndrome - Asthma Plan 1. Cataract - Assessed for preoperative preparation for scheduled cataract surgeries. - No current complications related to cataract condition noted. - Surgery dates specified as July 15 for right eye and August 04 for left eye. 2. Essential Hypertension - Blood pressure monitoring reveals good control (124/72 mmHg). - Continued management with current antihypertensive regimen: amlodipine and losartan. 3. Type 2 Diabetes Mellitus - A1c level at 6.6% indicating stable control under management plan. - Continued use of metformin as part of the diabetes management strategy. 4. Myofascial Pain Syndrome - Current report of generalized pain, managed effectively with pregabalin 150 mg. - Continues to benefit from the current medication regimen. 5. Asthma - Presently no acute asthma exacerbations or symptomatic issues reported. - Ongoing routine management. Medical Decision Making The patient's primary visit concern revolves around preoperative assessment for scheduled cataract interventions. Previously managed conditions include hypertension, diabetes mellitus, myofascial pain syndrome, and asthma, all stable under current treatment regimens. Hypertension is well-regulated with antihypertensive medications. Diabetes is managed and monitored, with an appropriate hemoglobin A1c value of 6.6%. The patient's pain due to myofascial syndrome under control with pregabalin. The goal is to maintain stability across all chronic conditions to ensure surgical readiness and postoperative recovery without complications. The absence of breathing difficulties suggests optimal asthma control. No additional diagnostic testing needed Patient is stable for cataract surgery
== END 2025-07-06 10:33 | disposition home or self-care (01) ==
LOC: HO.HMCC 07:59
PROVIDERS: PCP Internal Medicine; Visit Provider Internal Medicine
DX: E11.29 Type 2 diabetes mellitus with other diabetic kidney complication (principal); H25.89 Other age-related cataract; Z01.818 Encounter for other preprocedural examination; Z79.4 Long term (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 of insulin; I10 Essential (primary) hypertension; R80.9 Proteinuria, unspecified; E78.9 Disorder of lipoprotein metabolism, unspecified; F33.41 Major depressive disorder, recurrent, in partial remission; M79.7 Fibromyalgia; J45.40 Moderate persistent asthma, uncomplicated; R52 Pain, unspecified; G89.29 Other chronic pain

== ENCOUNTER → 2025-07-06 07:58 | Outpatient (BNVA) | payer OTHER, SELFPAY | PROVIDERS: PCP Internal Medicine; Visit Provider Internal Medicine | DX: Z01.818 Encounter for other preprocedural examination (principal); E11.29 Type 2 diabetes mellitus with other diabetic kidney complication; I10 Essential (primary) hypertension; J45.909 Unspecified asthma, uncomplicated; H25.89 Other age-related cataract; R80.9 Proteinuria, unspecified; E78.9 Disorder of lipoprotein metabolism, unspecified; F33.41 Major depressive disorder, recurrent, in partial remission; M79.7 Fibromyalgia; J45.40 Moderate persistent asthma, uncomplicated; G89.29 Other chronic pain; Z79.4 Long term (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 of insulin | CPT/HCPCS: 99212 ==

== ENCOUNTER 2025-08-01 10:47 | Outpatient (AMB) | payer OTHER, SELFPAY ==
--- NOTE | 2025-08-01 10:52 | A.OFFVIS_ITS ---
Vital Signs 08/01/25 10:56 Height 5 ft 2.64 in Weight 137 lb 5.568 oz BMI 24.6 Intake Visit Reasons: osteoporosis & T2DM Intake Note: Patient present today to follow up on Type 2 Diabetes Mellitus and Osteoporosis, last DEXA was on 06/08/2025. Last Diabetic Eye exam: 09/28/2024 Last Podiatry Visit: Does not see a Yarn Rewinder Random Glucose: 161 mg/dl HgA1C: 7.7% Transfusion Aide Required: Yes Transfusion Aide Language: Religious Studies Professor Services: Transfusion Aide Present Transfusion Aide Name: Russell YATES Information Interpreted: non-clinical & clinical Accompanied by: Self / Same As Patient Allergies lisinopril Allergy (Unknown, Verified 08/01/25 10:57) rash gabapentin Adverse Reaction (Mild, Verified 08/01/25 10:57) Unable to control pain Medication List - Last Reconciled 08/01/25 by Duarte Tijerina MD albuterol sulfate 0.63 mg (3 mL) inhalation QID PRN amlodipine 10 mg PO DAILY aspirin (Adult Low Dose Aspirin) 81 mg PO DAILY atorvastatin 40 mg PO BEDTIME [Blood pressure monitor As directed] blood sugar diagnostic (FreeStyle Lite Strips) As directed to check glucose 2 times daily blood-glucose meter (FreeStyle Lite Meter kit) As directed to monitor blood sugar blood-glucose sensor (FreeStyle Becky 3 Plus Sensor device) apply new sensor every 14 days to monitor glucose continuously blood-glucose,senior quality control inspector,cont (FreeStyle Becky 3 Mckenzie) use as directed to monitor blood glucose continuously cyclobenzaprine 5 mg PO BEDTIME PRN diclofenac sodium 3% 1 appl topical BID ergocalciferol (vitamin D2) 50 mcg PO DAILY escitalopram oxalate 10 mg PO DAILY 90 days glucose (Dex4 Glucose) 16 grams (4 x 4 gram) PO Q15M PRN lancets (FreeStyle Lancets) Use to monitor blood glucose 2 times daily. losartan 25 mg PO DAILY metformin ER 1,500 mg (3 x 500 mg) PO DAILY nut.tx.gluc.intol,lac-free,soy (Glucerna oral liquid) 1 ea PO DAILY 28 days pregabalin 150 mg PO BEDTIME 90 days tizanidine 2 mg PO TID PRN [Updraft machine As directed] HPI Comments Details: This is a 65-year-old female with a past medical history of asthma, chronic brook n, needle phobia, depression and anxiety, hypertension, fibromyalgia and hyperlipidemia presenting for diabetic and osteoporosis management. For the diabetes, pt saw Olga Chaudhary on 05/06/25 The osteoporosis a new diagnosis In terms of the diabetes I reviewed the patient's Becky 3 data from 06/16/2025 to 06/29/2025 CGM active 94% Average glucose 212 GMI 8.4% Glucose variability 29.5% Very high 24% High 43% Target range 33% 0% hypoglycemia She has postprandial breakfast hyperglycemia which extends throughout the day She was taking care of her mother in [place] for a couple months. She was not able to take medicine consistently or follow her normal diet. Since then she has had some dietary indiscretion. Current medication regimen: Metformin ER 1500 mg once daily. Past medication: Lantus discontinued due to hypoglycemia. Hypoglycemia symptoms: Denies episodes within the past couple of months. Hyperglycemia symptoms: dry mouth Microvascular complications: neuropathy, nephropathy (microalbuminuria) Macrovascular complications: No known Hypertension: treated with amlodipine and losartan. Hyperlipidemia: treated with atorvastatin. LDL at goal. In terms of the osteoporosis 65 YO Female with PMHx Type 2 DM is seen in consultation at the request of PCP for Osteoporosis. First diagnosed in 2 mos ago . Not Received treatment in the past No history of pathologic fracture or ONJ. Has several servings of dietary calcium per day in the form of cheese , yogurt , broccoli . Not Takes Calcium Takes 2000 IU of Vitamin D daily. Denies ever using PPI, anticoagulant, antiepileptic or glucocorticoid medication. 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 Menopause at age 37 hot flashes No tobacco use or heavy ETOH use Hx of CVA 2 yrs ago FINDINGS: The bone mineral density of the lumbar spine is 0.792 g/cm2, corresponding to a T-score of -3.2, and a Z-score of -1.8. This is indicative of osteoporosis. The bone mineral density of the left total hip is 0.867 g/cm2, corresponding to a T-score of -1.1, and a Z-score of 0.0. This is indicative of osteopenia. The bone mineral density of the left femoral neck is 0.838 g/cm2, corresponding to a T-score of -1.4, and a Z-score of -0.1. This is indicative of osteopenia. MM/XR DEXA axial skeleton IMPRESSION: Based on bone mineral density, and according to World Health Organization (WHO) criteria, the diagnosis is consistent with osteoporosis. ROS: Constitutional: No fevers, chills or night sweats. Eyes: No double vision or loss of vision or current blurry vision. Respiratory: No shortness of breath Cardiovascular: No chest pain Gastrointestinal: No anorexia, nausea, vomiting or diarrhea. No abdominal pain Neurologic: No headache, dizziness, syncope Skin: No open wounds. [facility] Medical History Hypoglycemia Controlled type 2 diabetes mellitus Needle phobia Diabetes mellitus with hyperglycemia Fibromyalgia Encounter for general adult medical examination with abnormal findings Anxiety, generalized Vitamin D deficiency Back spasm Hypertension, essential Surgical History History of abdominal hysterectomy Family History Father Parkinson disease Mother Osteoporosis HTN (hypertension) Maternal Grandmother Cancer of kidney Maternal Grandfather Stroke Brother No problems noted. Brother No problems noted. Brother No problems noted. Sister No problems noted. Sister No problems noted. Sister No problems noted. Son No problems noted. Son No problems noted. Daughter No problems noted. Social History Housing: Apartment Alcohol intake: never Patient Tobacco Use Status: Never used Tobacco e-Cigarette/Vaping Use: Never Used service: No Current occupational status: employed Cognitive needs: No Hearing needs: No Vision needs: No Physical Exam Vital Signs: BMI result Body Mass Index 24.6 Absence of Cushingoid features. Absence of acromegalic features. Neck exam reveals nl size thyroid about 15 gms. No thyroid nodules palpable. No carotid bruits present. Lungs CTA. Heart S1 S2, Reg R/R. No M/R/ G. Skin exam reveals absence of vitiligo or acanthosis nigricans. Abdominal exam reveals Soft NT/ND with NA BS. No organomegaly present. Neck Other: . Extrem Other: Visual exam of foot performed. No ulcerations or open lesions. No onchomycosis, no callouses.Pulses 2 + distally Sensation intact to monofilament exam. Vibratory sensation sensed is decreased with 128 Hz tuning fork Results AMB Hemoglobin A1c AMB Hemoglobin A1c 7.7 % Last Edit by LOWELL Meyer on 08/01/25 11:13 Assessment & Plan Assessment & Plan (1) Uncontrolled diabetes mellitus: Code(s): E11.65 - Type 2 diabetes mellitus with hyperglycemia Category: Medical Plan: This is a 65-year-old female with a history of type 2 diabetes being treated with metformin 1500 mg a day with poor glycemic control and no known microvascular macrovascular complications. The plan is to talk to the patient about initiating a G LP 1 agonist namely Mounjaro. Started Mounjaro 2.5 mg Q weekly. Went over side effects of Mounjaro including but not limited to nausea, vomiting and rare risk of pancreatitis. Explained these with the help of an lang interpreter. We will have patient follow up with Emily Chaudhary NP in 4 weeks for the diabetes (2) Age related osteoporosis: Code(s): M81.0 - Age-related osteoporosis without current pathological fracture Category: Medical Plan: History of osteoporosis on DEXA with partial secondary workup. Plan is to complete the secondary workup by checking a 24 hour urine for calcium and creatinine, phosphorus level, urine immunofixation. Will ensure 1200 mg of calcium I continued vitamin-D supplementation. Assuming secondary workup is negative would strongly consider the use of anabolic agent either Forteo or Tymlos i considering history of stroke 2 years ago a relative contraindication to Evenity. We will have her follow up in 3 months' time for the osteoporosis Orders: Orders Lipid Panel Today E11.65 - Type 2 diabetes mellitus with hyperglycemia Creatinine, 24 Hr Group Today E11.65 - Type 2 diabetes mellitus with hyperglycemia, M81.0 - Age-related osteoporosis without current pathological fracture Calcium, 24 Hr Ur Today E11.65 - Type 2 diabetes mellitus with hyperglycemia, M81.0 - Age-related osteoporosis without current pathological fracture Phosphorus Today E11.65 - Type 2 diabetes mellitus with hyperglycemia, M81.0 - Age-related osteoporosis without current pathological fracture Immunofixation, Random Urine Today E11.65 - Type 2 diabetes mellitus with hyperglycemia, M81.0 - Age-related osteoporosis without current pathological fracture AMB Hemoglobin A1c Today E11.65 - Type 2 diabetes mellitus with hyperglycemia Referrals Nutrition/Dietitian Referral E11.65 - Type 2 diabetes mellitus with hyperglycemia Medications: New tirzepatide (Mounjaro) for 4 weeks 2.5 mg (0.5 mL) subcut QWEEK 2 mL 4RF Coding Level of Care Code Est Pt Level 4 (56869) Complex EM visit Add On G2211 Diagnoses Uncontrolled diabetes mellitus E11.65 Age related osteoporosis M81.0
[2025-08-01 10:56] VITALS: BMI 24.6
[2025-08-01 11:09] LABS: Glucose, Whole Blood 161 mg/dL (60-115)
--- OUTSIDE RECORDS SUMMARY | 2025-08-01 13:18 | XMS_ITS | Clinical Summary ---
Author Organization [facility] Address [address] [place] [id number] Phone Care Team Providers Care Drill Presser Name Role Phone Gila Bragg MD Primary Care Provider [phone] Allergies No known active allergies Medications cyclobenzaprine (FLEXERIL) 10 mg tablet Take 1 tablet (10 mg total) by mouth 2 (two) times a day if needed for muscle spasms for up to 5 days. 10 tablet 12/14/2024 Active Medical History Medical History Date Comments Diabetes mellitus (CMS/HCC V24, CMS/[facility] V28) Fibromyalgia Social History Tobacco Use Types [...] 10/07/2022 Social Influencers of Health Screening 10/07/2022 Depression Screening 11/10/2024 COVID-19 Vaccine (1 - 2023-2 5 season) 2025 Influenza Vaccine (#1) 2025 RSV Immunization Adult [...] patient's age to complete this topic Insurance [facility] [id number] Care Teams Drill Presser Relationship Specialty Start Date End Date Gila Bragg MD [id number] [place] [phone] PCP - General Internal Medicine 06/21/21
== END 2025-08-01 11:42 | disposition home or self-care (01) ==
LOC: HO.ENCR 10:47
PROVIDERS: PCP Internal Medicine; Visit Provider Internal Medicine Endocrinology, Diabetes & Metabolism
DX: E11.65 Type 2 diabetes mellitus with hyperglycemia (principal); M81.0 Age-related osteoporosis without current pathological fracture
CPT/HCPCS: 99214

== ENCOUNTER → 2025-08-01 10:47 | Outpatient (BNVA) | payer OTHER, SELFPAY | PROVIDERS: PCP Internal Medicine; Visit Provider Internal Medicine Endocrinology, Diabetes & Metabolism | DX: E11.65 Type 2 diabetes mellitus with hyperglycemia (principal); Z79.4 Long term (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 of insulin | CPT/HCPCS: 82947; 83036; 99212 ==

== ENCOUNTER 2025-08-30 10:58 | Outpatient (AMB) | payer OTHER, SELFPAY ==
[2025-08-30 11:01] VITALS: BP 124/66; PULSE 87; O2SAT 96; BMI 25.3
--- NOTE | 2025-08-30 11:01 | MHC.OFFVIS ---
Vital Signs 08/30/25 11:01 Height 5 ft 2.64 in Weight 141 lb 1.533 oz BMI 25.3 BP 124/66 Blood Pressure Location Lt brachial Position Sitting Pulse 87 Pulse Source Pulse Oximeter Pulse Oximetry (%) 96 Oxygen Delivery Method Room Air Intake Visit Reasons: T2DM Intake Note: Patient present today to follow up on Type 2 Diabetes Mellitus. Last Diabetic Eye exam: 09/28/2024 Last Podiatry Visit: Does not see a Ballet Master/Mistress Random Glucose:200? mg/dl HgA1C: 7.7% 08/01/2025 Drawer Liner Required: Yes Drawer Liner Language: Insurance Auditor Services: Drawer Liner Present Drawer Liner Name: Torsten [id number] Information Interpreted: non-clinical & clinical Accompanied by: Self / Same As Patient Allergies lisinopril Allergy (Unknown, Verified 08/30/25 11:09) rash gabapentin Adverse Reaction (Mild, Verified 08/30/25 11:09) Unable to control pain HPI Comments Details: This is a 64-year-old female with a past medical history of asthma, chronic pain, needle phobia, depression and anxiety, hypertension, fibromyalgia and hyperlipidemia presenting for diabetic management. [place] video bath mixer: Torsten [id number] She denies family history of type 1 and type 2 diabetes. C-peptide normal 2.47, MINDY and islet cell antibody negative and BNP within normal range 09/03/2024. Hemoglobin A1c 7.7% 08/01/2025. Her becky reader is not working properly. It is not saving any information. She was taking care of her mother in [place] for a couple months. She was not able to take medicine consistently or follow her normal diet. Since then she has had some dietary indiscretion. Current medication regimen: Metformin ER 1500 mg daily and Mounjaro 2.5 mg weekly. She started Mounjaro a month ago. Denies side effects. Past medication: Lantus discontinued due to hypoglycemia. Hypoglycemia symptoms: Denies recent episodes Hyperglycemia symptoms: None Microvascular complications: neuropathy, nephropathy (microalbuminuria) Macrovascular complications: No known Hypertension: treated with amlodipine and losartan. Hyperlipidemia: treated with atorvastatin. LDL at goal. ROS: Constitutional: No fevers, chills or night sweats. Eyes: No double vision or loss of vision or current blurry vision. Respiratory: No shortness of breath Cardiovascular: No chest pain Gastrointestinal: No anorexia, nausea, vomiting or diarrhea. No abdominal pain Neurologic: No headache, dizziness, syncope Skin: No open wounds. Physical exam: Constitutional: Alert, in no distress. Neck: Supple, Full range of motion. No lymphadenopathy. No palpable thyroid masses. Respiratory: Clear to auscultation. Cardiovascular: S1 S2 regular. No murmurs. Feet: Warm and well perfused. Intact DP pulses. No open wounds. [facility] Medical History (Updated 08/30/25 @ 12:17 by CHENG La) Hyperlipidemia Hypoglycemia Controlled type 2 diabetes mellitus Needle phobia Diabetes mellitus with hyperglycemia Fibromyalgia Encounter for general adult medical examination with abnormal findings Anxiety, generalized Vitamin D deficiency Back spasm Hypertension, essential Surgical History History of abdominal hysterectomy Family History Father Parkinson disease Mother Osteoporosis HTN (hypertension) Maternal Grandmother Cancer of kidney Maternal Grandfather Stroke Brother No problems noted. Brother No problems noted. Brother No problems noted. Sister No problems noted. Sister No problems noted. Sister No problems noted. Son No problems noted. Son No problems noted. Daughter No problems noted. Social History Housing: Apartment Alcohol intake: never Patient Tobacco Use Status: Never used Tobacco e-Cigarette/Vaping Use: Never Used service: No Current occupational status: employed Cognitive needs: No Hearing needs: No Vision needs: No Physical Exam Vital Signs: Last Vital Signs Pulse 87 08/30/25 11:01 BP 124/66 08/30/25 11:01 Pulse Ox 96 08/30/25 11:01 Oxygen Delivery Method Room Air 08/30/25 11:01 BMI result Body Mass Index 25.3 Results Reviewed Results Reviewed: Laboratory Tests 11/16/24 03/30/25 16:12 10:12 Plt Count 318 Creatinine 0.73 Estimated GFR > 60 Hemoglobin A1c % 6.6 H AST 24 ALT 32 H LDL Cholesterol Direct 68 TSH 1.42 Urine Creatinine 34.44 Urine Microalbumin 11.0 Microalb/Creat Ratio 31.9 H Assessment & Plan Assessment & Plan (1) Controlled type 2 diabetes mellitus: Code(s): E11.9 - Type 2 diabetes mellitus without complications Category: Medical Qualifiers: Diabetes mellitus long-term insulin use: without long-term use Diabetes mellitus complication status: with kidney complications Diabetes mellitus complication detail: with diabetic microalbuminuria Qualified Code(s): E11.29 - Type 2 diabetes mellitus with other diabetic kidney complication; R80.9 - Proteinuria, unspecified (2) Hypertension, essential: Code(s): I10 - Essential (primary) hypertension Category: Medical (3) Hyperlipidemia: Code(s): E78.5 - Hyperlipidemia, unspecified Category: Medical Qualifiers: Hyperlipidemia type: pure hypercholesterolemia Qualified Code(s): E78.00 - Pure hypercholesterolemia, unspecified Plan In summary this is a 65-year-old female with suboptimally controlled type 2 diabetes. Continue metformin extended release to 1500 mg daily. Increase Mounjaro to 5 mg weekly. I sent a prescription for a new reader to her pharmacy. I also advised the patient to contact the embedded nurse if the pharmacy does not dispense it due to insurance. She was also told she can download the [employer] sarah on her phone and use this instead of the reader. She is trying to get back on track with her diet and exercise plan. She has seen the dietitian. Reviewed treatment of hypo and hyperglycemia. She has glucose tablets. Hypertension is controlled. Continue losartan. Continue amlodipine. Continue atorvastatin for hyperlipidemia and cardiovascular risk reduction. Have fasting lab work completed prior to next visit. Follow up in 8 weeks for type 2 diabetes. Orders: Orders Aspartate Amino Transferase Today E11.29 - Type 2 diabetes mellitus with other diabetic kidney complication, R80.9 - Proteinuria, unspecified, Z79.4 - alf (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 of insulin Vitamin B12 Today E11.29 - Type 2 diabetes mellitus with other diabetic kidney complication, R80.9 - Proteinuria, unspecified, Z79.4 - alf (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 of insulin, Z91.89 - Other specified personal risk factors, not elsewhere classified Hemoglobin A1c Today R73.9 - Hyperglycemia, unspecified Creatinine Today E11.29 - Type 2 diabetes mellitus with other diabetic kidney complication, E11.9 - Type 2 diabetes mellitus without complications, R80.9 - Proteinuria, unspecified, Z79.4 - intermission coordinator (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 of insulin Alanine Aminotransferase Today E11.29 - Type 2 diabetes mellitus with other diabetic kidney complication, R80.9 - Proteinuria, unspecified, Z79.4 - alf (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 of insulin Lipid Panel Today E11.29 - Type 2 diabetes mellitus with other diabetic kidney complication, E78.5 - Hyperlipidemia, unspecified, R80.9 - Proteinuria, unspecified, Z79.4 - alf (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 of insulin Microalbumin, Random (w Creat) Today E11.9 - Type 2 diabetes mellitus without complications Medications: New tirzepatide (Mounjaro) Replaces Mounjaro 2.5 mg. 5 mg (0.5 mL) subcut QWEEK 2 mL 2RF Refilled blood-glucose,insurance account manager,cont ([employer] Becky [address] [place]) use as directed to monitor blood glucose continuously 1 ea 0RF E10.43 - Type 1 diabetes mellitus with diabetic autonomic (poly)neuropathy, E11.29 - Type 2 diabetes mellitus with other diabetic kidney complication, R80.9 - Proteinuria, unspecified, Z79.4 - intermission coordinator (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 of insulin Discontinued tirzepatide (Mounjaro) for 4 weeks Discontinued Reason: Doctor's Order 2.5 mg (0.5 mL) subcut QWEEK 2 mL 4RF Coding Level of Care Code Est Pt Level 4 (09389) Complex EM visit Add On G2211 Diagnoses Controlled type 2 diabetes mellitus with microalbuminuria, without long-term current use of insulin E11.29; R80.9 Diabetes mellitus continuous churn buttermaker insulin use: without continuous churn buttermaker use Diabetes mellitus complication status: with kidney complications Diabetes mellitus complication detail: with diabetic microalbuminuria Hypertension, essential I10 Pure hypercholesterolemia E78.00 Hyperlipidemia type: pure hypercholesterolemia
[2025-08-30 11:20] LABS: Glucose, Whole Blood 200 mg/dL (60-115)
== END 2025-08-30 11:40 | disposition home or self-care (01) ==
LOC: HO.ENCR 10:59
PROVIDERS: PCP Internal Medicine; Visit Provider Physician Assistant Medical
DX: E11.29 Type 2 diabetes mellitus with other diabetic kidney complication (principal); R80.9 Proteinuria, unspecified; I10 Essential (primary) hypertension; E78.00 Pure hypercholesterolemia, unspecified

== ENCOUNTER → 2025-08-30 10:58 | Outpatient (BNVA) | payer OTHER, SELFPAY | PROVIDERS: PCP Internal Medicine; Visit Provider Physician Assistant Medical | DX: E11.29 Type 2 diabetes mellitus with other diabetic kidney complication (principal); R80.9 Proteinuria, unspecified; I10 Essential (primary) hypertension; E78.00 Pure hypercholesterolemia, unspecified | CPT/HCPCS: 82947; 99212 ==

== ENCOUNTER 2025-09-29 10:15 | Outpatient (AMB) | payer OTHER, SELFPAY ==
--- NOTE | 2025-09-29 10:34 | A.OFFVIS_ITS ---
VS Expanded 09/29/25 10:35 09/29/25 10:48 Height 5 ft 2.64 in 5 ft 2 in Weight 143 lb 143 lb BMI 25.6 26.2 Intake Visit Reasons: Type 2 diabetes mellitus with hyperglycemia Allergies lisinopril Allergy (Unknown, Verified 08/30/25 11:09) rash gabapentin Adverse Reaction (Mild, Verified 08/30/25 11:09) Unable to control pain Nutrition Presentation Details: Pt presents for MNT for T2DM Food frequency Fruits 0-1 a day Vegetables 3 times a week Fish 0 to once a week Dairy 2 times per day Patient reports having 3 meals a day working on choosing low sugar beverages Breakfast may be cereal with milk or sandwich with ham and cheese and may have coffee with diet sugar Lunch may be a fruit or yogurt Dinner rice beans chicken or root vegetables and cod or chicken, drinks water or juice Snacks on crackers or peanut butter or fruit Physical activity activities of daily living HLO-Ldiiqek-Xf.Jeor Equation Height: 5 ft 2 in Weight: 143 lb Resting Metabolic Rate: 1161.28 Calculated Activity Level: Sedentary Calories Needed to Maintain Weight: 1393.54 Diagnosis Nutrition problem #1: altered nutrition labs As related to (etiology) #1: diagnosis and physical inactivity As evidenced by (sign/symptom) #1: elevated HgbA1c [facility] Medical History (Updated 08/30/25 @ 12:17 by CHENG La) Hyperlipidemia Hypoglycemia Controlled type 2 diabetes mellitus Needle phobia Diabetes mellitus with hyperglycemia Fibromyalgia Encounter for general adult medical examination with abnormal findings Anxiety, generalized Vitamin D deficiency Back spasm Hypertension, essential Surgical History History of abdominal hysterectomy Family History Father Parkinson disease Mother Osteoporosis HTN (hypertension) Maternal Grandmother Cancer of kidney Maternal Grandfather Stroke Brother No problems noted. Brother No problems noted. Brother No problems noted. Sister No problems noted. Sister No problems noted. Sister No problems noted. Son No problems noted. Son No problems noted. Daughter No problems noted. Social History Housing: Apartment Alcohol intake: never Patient Tobacco Use Status: Never used Tobacco e-Cigarette/Vaping Use: Never Used service: No Current occupational status: employed Cognitive needs: No Hearing needs: No Vision needs: No Assessment & Plan Assessment & Plan (1) Type 2 diabetes mellitus: Code(s): E11.9 - Type 2 diabetes mellitus without complications Category: Medical Qualifiers: Diabetes mellitus complication detail: with diabetic microalbuminuria Diabetes mellitus complication status: with kidney complications Diabetes mellitus skilled nursing insulin use: with termite control servicer use Qualified Code(s): E11.29 - Type 2 diabetes mellitus with other diabetic kidney complication; R80.9 - Proteinuria, unspecified; Z79.4 - bed bug exterminator (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 of insulin Plan: current wt: 65kg (10/04 ) est kcal needs as per MSJ: 1400 est protein needs as per 1 g/kg BW: 70 est fluid needs as per 30 ml/kg BW: 2000 Recommended fiber > 12 g /day and gradually increase up to 25-28 g /day or as tolerated Nutrition topics discussed : Reviewed (R), Pt verbalized understanding (V) , not applicable (N/A) R, : Healthy Plate Method Concept: R, : Carbohydrates: food sources of carbohydrates, relationship of carbohydrates to blood glucose, fatty liver GI health. Recommended total amount of carbohydrates per meals and snack. Differences between simple carbohydrates and complex carbohydrates R, : Lean protein foods including vegan , vegetarian sources of protein. Benefits of protein (including but not limited to healing, nutritional value , benefits in weight loss, glucose control R, : Fats : Source of fats, benefits of fats. Difference between saturated and unsaturated fats. Saturated fats and its contribution to inflammation R, V, N/A: Fiber: food sources and role of fiber in the diet (including but not limited to its role as a prebiotic, benefits in constipation, role in IBS , role in glucose control and cholesterol level) R, : Hydration: role of hydration and prevention of dehydration or over hydration. Foods and water content. R, V, N/A: Vitamins and Minerals in foods and supplements R, V, N/A: Interpreting food labels, including serving size, macronutrients, vitamins, minerals, allergens, ingredient list , % daily value Patient Instructions: Work at reducing carbohydrates to 45 g or less per meal, following healthy plate method Choose a snack consisting of 20 g of carbs or less and including at least and oz of protein Choose low sugar beverages read food labels Coding Level of Care Code Nutr Indiv Intake (36391) Diagnoses Type 2 diabetes mellitus with diabetic microalbuminuria, with long-term current use of insulin E11.29; R80.9; Z79.4 Diabetes mellitus complication detail: with diabetic microalbuminuria Diabetes mellitus complication status: with kidney complications Diabetes mellitus skilled nursing insulin use: with skilled nursing use Time Spent (min) 30
[2025-09-29 10:35] VITALS: BMI 25.6
[2025-10-03 10:34] VITALS: BMI 26.2
== END 2025-09-29 11:13 | disposition home or self-care (01) ==
LOC: HO.ENCR 10:15
PROVIDERS: PCP Internal Medicine; Visit Provider Dietitian, Registered
DX: E11.29 Type 2 diabetes mellitus with other diabetic kidney complication (principal); R80.9 Proteinuria, unspecified; Z79.4 Long term (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 of insulin

== ENCOUNTER → 2025-09-29 10:15 | Outpatient (BNVA) | payer OTHER, SELFPAY | PROVIDERS: PCP Internal Medicine; Visit Provider Dietitian, Registered | DX: E11.8 Type 2 diabetes mellitus with unspecified complications (principal); R80.9 Proteinuria, unspecified; Z79.4 Long term (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 of insulin | CPT/HCPCS: 97802 ==

== ENCOUNTER 2025-10-13 12:56 | Outpatient (AMB) | payer OTHER, SELFPAY ==
--- NOTE | 2025-10-13 13:02 | A.OFFVIS_ITS ---
Vital Signs 10/13/25 13:03 Height 5 ft 2 in Weight 140 lb BMI 25.6 BP 116/70 Intake Visit Reasons: New Patient Annual/DO NOT RS Grooming Salon Manager Required: Yes Grooming Salon Manager Language: Marketing Education Teacher Services: Grooming Salon Manager Present (in person) Grooming Salon Manager Name: Maritza ETIENNE Information Interpreted: non-clinical & clinical Supply Chain Procurement Manager: Supply Chain Procurement Manager Present (Maritza ETIENNE) Accompanied by: Self / Same As Patient Allergies lisinopril Allergy (Unknown, Verified 10/13/25 13:05) rash gabapentin Adverse Reaction (Mild, Verified 10/13/25 13:05) Unable to control pain Post menopausal: Yes HPI Comments Details: Presenting for annual exam. No complaints. Last Pap/HPV?, the patient is status post hysterectomy for SUSANNE 3 according to her no records available Last Mammogram was in 12/04, BI-RADS 1 Last screening colonoscopy was a year ago, the recommendation was to repeat in 5 years [facility] Medical History (Updated 10/13/25 @ 13:27 by Reece Kaplan MD) Hyperlipidemia Hypoglycemia Controlled type 2 diabetes mellitus Needle phobia Diabetes mellitus with hyperglycemia Fibromyalgia Encounter for general adult medical examination with abnormal findings Anxiety, generalized Vitamin D deficiency Back spasm Hypertension, essential Surgical History (Updated 10/13/25 @ 13:34 by Reece Kaplan MD) History of abdominal hysterectomy Family History Father Parkinson disease Mother Osteoporosis HTN (hypertension) Maternal Grandmother Cancer of kidney Maternal Grandfather Stroke Brother No problems noted. Brother No problems noted. Brother No problems noted. Sister No problems noted. Sister No problems noted. Sister No problems noted. Son No problems noted. Son No problems noted. Daughter No problems noted. Maternal Uncle Lung cancer Social History Household Members: Significant Other Housing: House Alcohol intake: never Patient Tobacco Use Status: Never used Tobacco e-Cigarette/Vaping Use: Never Used Use of substances other than those prescribed or required for medical reasons: No service: No Current occupational status: retired Sexually active: Yes Sexual orientation: Straight/Heterosexual Gender identity: Female Cognitive needs: No Hearing needs: No Vision needs: No Female Reproductive History Menstrual Menopause type: surgical Total pregnancies: 4 Full term: 3 Number of Living Children: 3 Ab spontaneous: 1 Date of Mammogram: 12/08/24 Date of last Bone Density Screenin06/08/25 Review of Systems Const All systems reviewed & are unremarkable except as noted in HPI and below Card Reports as per HPI Resp Reports as per HPI GI Reports as per HPI and Reports no additional complaints Reports as per HPI Physical Exam Vital Signs: Last Vital Signs BP 116/70 10/13/25 13:03 BMI result Body Mass Index 25.6 Const General: cooperative, healthy appearing and comfortable Chest Chest palpation & inspection: normal inspection of the chest and normal palpation of entire chest wall Breast/axilla inspection: normal inspection of the breasts and normal inspection of the axillae Breast/axilla palpation: normal palpation of the breasts, normal palpation of the axillae and no axillary lymphadenopathy Resp Effort & Inspection: normal respiratory effort Auscultation: clear to auscultation bilaterally Percussion: percussion normal Cardio Palpation: normal PMI Rate: regular rate Rhythm: regular rhythm Heart sounds: no murmurs and no rubs Peripheral pulses: Peripheral pulses 2+ throughout GI Inspection: Yes normal to inspection Palpation (GI): Soft to palpation, nontender, no guarding, not rigid and No hepatosplenomegaly present Percussion: Yes normal to percussion Auscultation: normal bowel sounds Rectal Exam - Female: deferred General: Yes bladder normal to palpation External Female Exam: No lesion Speculum Exam - Vagina: normal appearance of the vagina, normal palpation, normal vaginal discharge and not erythematous Speculum Exam - Cervix: Cervix absent Bimanual exam- vagina & uterus: normal bimanual exam, normal palpation and bladder normal to palpation Bimanual Exam- Adnexa, other: normal adnexae, no masses and no tenderness Assessment & Plan Assessment & Plan (1) Well woman exam: Code(s): Z01.419 - Encounter for gynecological examination (general) (routine) without abnormal findings Category: Medical Plan: Co testing done since the patient has history of hysterectomy for SUSANNE 3 with no recent Pap smear results record Counseled the patient about the recommended dietary allowance of 1200 mg of Calcium & 600 IU of vitamin D. Mammogram ordered. The patient was instructed to perform monthly self-breast exams and schedule annual exam in a year. All questions answered and the patient verbalized understanding. Orders: Orders MM tomosynthesis screening BI Today Z12.31 - Encounter for screening mammogram for malignant neoplasm of breast Coding Level of Care Code New Pt Prev Care 40-64y(07246) Diagnoses Well woman exam Z01.419
[2025-10-13 13:03] VITALS: BP 116/70; BMI 25.6
== END 2025-10-13 13:37 | disposition home or self-care (01) ==
LOC: HO.HWS 12:57
PROVIDERS: PCP Internal Medicine; Visit Provider Obstetrics & Gynecology
DX: Z01.419 Encounter for gynecological examination (general) (routine) without abnormal findings (principal)
CPT/HCPCS: 99386; 99459

== ENCOUNTER 2025-10-13 12:56 | Outpatient (REF) | payer OTHER, SELFPAY | END 2025-10-13 12:57 | disposition home or self-care (01) | LOC: HO.LNP 12:56 | PROVIDERS: PCP Internal Medicine; Visit Provider Obstetrics & Gynecology | DX: Z01.419 Encounter for gynecological examination (general) (routine) without abnormal findings (principal) | CPT/HCPCS: 87626; 88175 ==

== ENCOUNTER 2025-10-14 14:07 | Outpatient (AMB) | payer OTHER, SELFPAY ==
--- NOTE | 2025-10-14 14:09 | A.OFFVIS_ITS ---
Vital Signs 10/14/25 14:10 Height 5 ft 2 in Weight 140 lb BMI 25.6 BP 141/80 H Blood Pressure Location Lt brachial Position Sitting Respiration 16 Pulse 90 Pulse Source Pulse Oximeter Pulse Oximetry (%) 96 Oxygen Delivery Method Room Air Intake Visit Reasons: CHRONIC PAIN Purchasing Manager/Sales Required: Yes Purchasing Manager/Sales Language: Insert Operator Services: Purchasing Manager/Sales Present Purchasing Manager/Sales Name: Dg [id number] Accompanied by: Self / Same As Patient Allergies lisinopril Allergy (Unknown, Verified 10/14/25 14:09) rash gabapentin Adverse Reaction (Mild, Verified 10/14/25 14:09) Unable to control pain HPI 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 She reports experiencing pain in all her joints. Past x-rays of her neck and back revealed age-related changes and some arthritis. The patient has a known history of fibromyalgia, which is thought to be related to her small joint pains. She has tried diclofenac cream for the pain, which she reports does not help. She is not currently taking other treatments such as ibuprofen, nor is she using heat or ice. Taking muscle relaxers with minimal relief. - Location: The patient reports pain in all her joints, with her neck and back being most affected. - Severity: The neck is reported to be more painful than the back. - Relieving Factors: Diclofenac cream has been tried without providing relief. - Analgesia: The patient has used diclofenac cream without benefit and reports not taking ibuprofen, Tylenol. Minimal relief with Lyrica. PREVIOUS: The patient is a 64-year-old female presenting with chronic pain management. She reports experiencing pain in the joints of her neck, arms, hands, and the soles of her feet for approximately two years. She also endorses inflammation, tenderness to palpation across bilateral trapezius muscles. The pain is associated with fibromyalgia, which she has been diagnosed with. The patient has attempted physical therapy in the past, but it did not provide relief. She has not undergone any needling therapies or x-rays of her neck area. She experiences swelling in her back and has been unable to sleep for three weeks. The patient is currently taking pregabalin 175 mg twice a day, but reports it is ineffective in managing her pain. She does not take any anti-inflammatory medica tions or muscle relaxers. She uses cannabis-derived gums for pain relief. The patient reports that her pain worsens with prolonged sitting and improves with avoidance of heavy lifting. The patient has a history of diabetes, but no known issues with blood pressure, kidneys, or liver. - Pain located in joints of neck, arms, hands, and soles of feet - Duration of pain is approximately two years - Pain worsens with prolonged sitting and improves with avoidance of heavy lifting - Experiences numbness in legs when standing after sitting for extended periods - Uses cannabis-derived gums for pain relief - Affect: Reports feeling desperate and crying due to pain - Analgesia: Currently taking pregabalin 175 mg twice daily, but reports it is ineffective - Adverse Effects: None reported - Activities of Daily Living: Pain interferes with ability to perform tasks, such as making a fist or holding objects - Aberrant Drug Related Behaviors: None reported [facility] Medical History (Updated 10/13/25 @ 13:27 by Reece Kaplan MD) Hyperlipidemia Hypoglycemia Controlled type 2 diabetes mellitus Needle phobia Diabetes mellitus with hyperglycemia Fibromyalgia Encounter for general adult medical examination with abnormal findings Anxiety, generalized Vitamin D deficiency Back spasm Hypertension, essential Surgical History (Updated 10/13/25 @ 13:34 by Reece Kaplan MD) History of abdominal hysterectomy Family History Father Parkinson disease Mother Osteoporosis HTN (hypertension) Maternal Grandmother Cancer of kidney Maternal Grandfather Stroke Brother No problems noted. Brother No problems noted. Brother No problems noted. Sister No problems noted. Sister No problems noted. Sister No problems noted. Son No problems noted. Son No problems noted. Daughter No problems noted. Maternal Uncle Lung cancer Social History Household Members: Significant Other Housing: House Alcohol intake: never Patient Tobacco Use Status: Never used Tobacco e-Cigarette/Vaping Use: Never Used service: No Current occupational status: retired Sexual orientation: Straight/Heterosexual Gender identity: Female Cognitive needs: No Hearing needs: No Vision needs: No Review of Systems Narrative - Musculoskeletal: Reports generalized arthralgia. - Neck: Reports neck pain, which is worse than her back pain. - Back: Reports back pain. Physical Exam Exam Exam: General: awake, alert, oriented. Answers questions appropriately. Fully engaged in examination. Skin: warm, dry, intact HEENT: Normocephalic. Hearing intact. Cardiac: External chest normal in appearance. Respiratory: No cough, audible wheezing or stridor. Abdomen: without gross distension. MS: No obvious swelling or deformities. Able to transition from sit to stand unassisted. Ambulates with bilaterally normal heel strike and toe off Tenderness to palpation across upper middle trapezius bilaterally. Decreased cervical range of motion Neurological: Oriented to person, place, time and situation. Thought process intact. No gait abnormalities appreciated. Psychiatric: Appropriate mood and affect. Good judgment and insight. Vital Signs: Last Vital Signs Pulse 90 10/14/25 14:10 Resp 16 10/14/25 14:10 BP 141/80 H 10/14/25 14:10 Pulse Ox 96 10/14/25 14:10 Oxygen Delivery Method Room Air 10/14/25 14:10 BMI result Body Mass Index 25.6 Results Reviewed Results Reviewed: 04/2025 XR/XR cervical spine w flex/ext TECHNIQUE: AP oblique lateral and atlantoodontoid views. Lateral views during flexion and extension position. FINDINGS: Craniocervical junction is intact. Marginal osteophyte formation decreased intervertebral disc height C6-7 and to a lesser extent C4-5 and C5-6 levels. No gross malalignment. No malalignment during flexion and extension position. No lytic or blastic lesions. IMPRESSION: Multilevel cervical spondylosis pronounced at C6-7 without acute fracture or gross listhesis. No instability. FINDINGS: 04/2025 XR/XR lumbar spine 4V min No acute cortical disruption or malalignment. Facet joint hypertrophy at L5-S1. Osteopenia versus the process. Spina bifida occulta S1. IMPRESSION: Mild multilevel spondylosis without acute fracture or listhesis no gross change. 04/2025 XR/XR pelvis 1-2V FINDINGS: Bony pelvis is intact. Coxofemoral joints are intact with normal alignment. Spina bifida occulta S1. Mild degenerative changes in the symphysis pubis. Osteopenia versus osteoporosis. IMPRESSION: No acute fracture. Assessment & Plan Assessment & Plan (1) Chronic pain syndrome: Code(s): G89.4 - Chronic pain syndrome Category: Medical (2) Cervicalgia: Code(s): M54.2 - Cervicalgia Category: Medical (3) Myofascial neck pain: Code(s): M54.2 - Cervicalgia Category: Medical Plan The patient will be scheduled for trapezius trigger point injections to address her myofascial neck pain, which she identifies as her most significant issue. The procedure will be performed in the office by Dr. Roland. If the trigger point injections do not provide sufficient relief, the next step will be to consider diagnostic injections into the joints. The treatment plan will focus on one area at a time, with management of other painful areas to follow once her neck pain is better controlled. An appointment has been made for the patient to return for the procedure. Patient was informed and verbally consented to the use of an ambient scribe for clinic note documentation during this visit. Patient Instructions: - We will start by treating your neck pain, as that is what bothers you the most. - You will need to make an appointment to come back to the office for trigger point injections, which are injections into the muscles of your neck and shoulder area. - If these shots in the muscle do not help your pain, we can then talk about doing injections into the joints. - Once your neck pain improves, we will start to work on treating the other areas where you have pain. - An appointment has been scheduled for you to have the injection procedure on November 02, at 8:45 AM. Coding Level of Care Code Est Pt Level 3 (23339) Complex visit Add On G2211 Diagnoses Chronic pain syndrome G89.4 Cervicalgia M54.2 Myofascial neck pain M54.2
[2025-10-14 14:10] VITALS: BP 141/80; PULSE 90; RESP 16; O2SAT 96; BMI 25.6
--- OUTSIDE RECORDS SUMMARY | 2025-10-14 18:20 | XMS_ITS | Clinical Summary ---
Author Organization [facility] Address [address] [place] [phone] Phone Care Team Providers Care Track Hoe Operator Name Role Phone Gila Bragg MD Primary Care Provider Allergies No known active allergies Medications cyclobenzaprine (FLEXERIL) 10 mg tablet Take 1 tablet (10 mg total) by mouth 2 (two) times a day if needed for muscle spasms for up to 5 days. 10 tablet 12/14/2024 Active Medical History Medical History Date Comments Diabetes mellitus (CMS/HCC V24, CMS/[facility] V28) Fibromyalgia Social History Tobacco [...] Last Done Comments Breast Cancer Screening 1962 Colorectal Cancer Screening: Colonoscopy 1962 DTaP,Tdap,and Td Vaccines (1 - Tdap) 1981 Cervical Cancer Screening: P ap Smear 1983 Pneumococcal Vaccine: 50+ Ye ars (1 of 1 - PCV) 2012 Zoster Vaccines (1 of 2) 2012 HIV Screening 10/07/2022 Hepatitis C Screening 10/07/2022 Social Influencers of Health Screening 10/07/2022 Depression Screening 11/10/2024 COVID-19 Vaccine (1 - 2024-2 6 season) 2025 Influenza Vaccine (#1) 2025 RSV [...] patient's age to complete this topic Insurance [facility] [place] [id number] Care Teams Track Hoe Operator Relationship Specialty Start Date End Date Gila Bragg MD [address] [place] [phone] PCP - General Internal Medicine 06/21/21
== END 2025-10-14 14:34 | disposition home or self-care (01) ==
PROVIDERS: PCP Internal Medicine; Visit Provider Registered Nurse Emergency
DX: G89.4 Chronic pain syndrome (principal); M54.2 Cervicalgia
CPT/HCPCS: 99213

== ENCOUNTER → 2025-10-14 14:07 | Outpatient (BNVA) | payer OTHER, SELFPAY | PROVIDERS: PCP Internal Medicine; Visit Provider Registered Nurse Emergency | DX: G89.4 Chronic pain syndrome (principal); M54.2 Cervicalgia | CPT/HCPCS: 99212 ==

== ENCOUNTER 2025-10-25 10:46 | Outpatient (REF) | payer OTHER, SELFPAY ==
[2025-10-25 12:07] LABS: Total Hemoglobin (HGBA1C) 2426.9717 umol/L
[2025-10-25 12:30] LABS: Alanine Aminotransferase 44 U/L (0-31); Anion Gap 11 (12-20); Aspartate Amino Transferase 23 U/L (5-31); Blood Urea Nitrogen 16 mg/dL (9-16); Calcium 9.4 mg/dL (8.4-10.2); Carbon Dioxide 26 mmol/L (22-29); Chloride 108 mmol/L (96-108); Cholesterol 146 mg/dL (<200); Estimated Glomerular Filt Rate > 60; HDL Cholesterol 38 mg/dL (>40); Potassium 4.5 mmol/L (3.3-5.1); Sodium 140 mmol/L (135-145); Triglycerides 51 mg/dL (<150)
[2025-10-25 13:00] LABS: Vitamin B12 616 pg/mL (200-900)
[2025-10-25 13:02] LABS: Microalbum/Creatinine Ratio Ur 14.4 ug/mg cr (<30)
== END 2025-10-25 10:47 | disposition home or self-care (01) ==
LOC: HO.LAB 10:46
PROVIDERS: Absent Provider Internal Medicine Endocrinology, Diabetes & Metabolism; PCP Internal Medicine; Visit Provider Physician Assistant Medical
DX: E11.65 Type 2 diabetes mellitus with hyperglycemia (principal); E11.29 Type 2 diabetes mellitus with other diabetic kidney complication; M81.0 Age-related osteoporosis without current pathological fracture; E78.00 Pure hypercholesterolemia, unspecified; I10 Essential (primary) hypertension; R80.9 Proteinuria, unspecified; Z91.89 Other specified personal risk factors, not elsewhere classified; Z79.4 Long term (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 of insulin; Z79.85 Long-term (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 of injectable non-insulin antidiabetic drugs
CPT/HCPCS: 36415; 80048; 80061; 82043; 82570; 82607; 82947; 83036; 84100; 84450; 84460; 86335; 99212

== ENCOUNTER 2025-10-25 10:46 | Outpatient (AMB) | payer OTHER, SELFPAY ==
[2025-10-25 10:48] VITALS: BP 124/82; PULSE 92; O2SAT 98; BMI 26.6
--- NOTE | 2025-10-25 10:48 | A.OFFVIS_ITS ---
Vital Signs 10/25/25 10:48 Height 5 ft 2 in Weight 145 lb 4.554 oz BMI 26.6 BP 124/82 Blood Pressure Location Rt brachial Position Sitting Pulse 92 Pulse Source Pulse Oximeter Pulse Oximetry (%) 98 Oxygen Delivery Method Room Air Intake Visit Reasons: Type II diabetes Intake Note: Patient present today to follow up on Type 2 Diabetes Mellitus. Last Diabetic Eye exam: 09/28/2024 Last Podiatry Visit: Does not see a [employer] Random Glucose: 131 mg/dl HgA1C: 7.2% Arts Administrator Required: Yes Arts Administrator Language: Delivery Table Operator Services: Arts Administrator Present Arts Administrator Name: Kalpana [id number] Information Interpreted: non-clinical & clinical Accompanied by: Self / Same As Patient Allergies lisinopril Allergy (Unknown, Verified 10/25/25 10:53) rash gabapentin Adverse Reaction (Mild, Verified 10/25/25 10:53) Unable to control pain Medication List - Last Reconciled 10/25/25 by CHENG La albuterol sulfate 0.63 mg (3 mL) inhalation QID PRN amlodipine 10 mg PO DAILY aspirin (Adult Low Dose Aspirin) 81 mg PO DAILY atorvastatin 40 mg PO BEDTIME [Blood pressure monitor As directed] blood sugar diagnostic (FreeStyle Lite Strips) As directed to check glucose 2 times daily blood-glucose meter (FreeStyle Lite Meter kit) As directed to monitor blood sugar blood-glucose sensor (FreeStyle Becky 3 Plus Sensor device) apply new sensor every 14 days to monitor glucose continuously blood-glucose,forecast analyst,cont (FreeStyle Becky 3 [place]) use as directed to monito r blood glucose continuously cyclobenzaprine 5 mg PO BEDTIME PRN diclofenac sodium 3% 1 appl topical BID ergocalciferol (vitamin D2) 50 mcg PO DAILY escitalopram oxalate 10 mg PO DAILY 90 days glucose (Dex4 Glucose) 16 grams (4 x 4 gram) PO Q15M PRN lancets (FreeStyle Lancets) Use to monitor blood glucose 2 times daily. losartan 25 mg PO DAILY nut.tx.gluc.intol,lac-free,soy (Glucerna oral liquid) 1 ea PO DAILY 28 days pregabalin 150 mg PO BEDTIME 90 days tirzepatide (Mounjaro) 2.5 mg (0.5 mL) subcut QWEEK tizanidine 2 mg PO TID [Updraft machine As directed] HPI Comments Details: This is a 65-year-old female with a past medical history of asthma, chronic pain, needle phobia, depression and anxiety, hypertension, fibromyalgia and hyperlipidemia presenting for diabetic management. She denies family history of type 1 and type 2 diabetes. C-peptide normal 2.47, MINDY and islet cell antibody negative and BNP within normal range 09/03/2024. Hemoglobin A1c 7.2% down from 7.7% 08/01/2025. Reviewed Becky data CGM active 92% G MO 6.4% Very high 0% High 6% Target range 94% Low 0% My interpretation is that the patient has blood sugars within target range throughout 24 hours. She eats 2 meals per day. Current medication regimen: She stopped the Metformin 3 weeks ago. She did not increase Mounjaro to 5 mg because her sensor alerted her to low blood sugars frequenlty. She is only taking Mounjaro 2.5 mg weekly. Past medication: Lantus discontinued due to hypoglycemia. Hypoglycemia symptoms: Endorses frequent low sugars during the day. The lowest was 59. She experiences no symptoms and treats with candy, but she has started not to treat them and they normalize. In the past she did have symptoms with low blood sugars. She is not confirming with fingersticks, but she has a working glucometer. Hyperglycemia symptoms: None Microvascular complications: neuropathy, nephropathy (microalbuminuria) Macrovascular complications: No known Hypertension: treated with amlodipine and losartan. Hyperlipidemia: treated with atorvastatin. LDL at goal. ROS: Constitutional: No fevers, chills or night sweats. Eyes: No double vision or loss of vision or current blurry vision. Respiratory: No shortness of breath Cardiovascular: No chest pain Gastrointestinal: No anorexia, nausea, vomiting or diarrhea. No abdominal pain Neurologic: No headache, dizziness, syncope Skin: No open wounds. Physical exam: Constitutional: Alert, in no distress. Neck: Supple, Full range of motion. No lymphadenopathy. No palpable thyroid masses. Respiratory: Clear to auscultation. Cardiovascular: S1 S2 regular. No murmurs. [facility] Medical History (Updated 10/13/25 @ 13:27 by Reece Kaplan MD) Hyperlipidemia Hypoglycemia Controlled type 2 diabetes mellitus Needle phobia Diabetes mellitus with hyperglycemia Fibromyalgia Encounter for general adult medical examination with abnormal findings Anxiety, generalized Vitamin D deficiency Back spasm Hypertension, essential Surgical History (Updated 10/25/25 @ 10:55 by LOWELL Dahl) History of cataract surgery History of abdominal hysterectomy Family History Father Parkinson disease Mother Osteoporosis HTN (hypertension) Maternal Grandmother Cancer of kidney Maternal Grandfather Stroke Brother No problems noted. Brother No problems noted. Brother No problems noted. Sister No problems noted. Sister No problems noted. Sister No problems noted. Son No problems noted. Son No problems noted. Daughter No problems noted. Maternal Uncle Lung cancer Social History Household Members: Significant Other Housing: House Alcohol intake: never Patient Tobacco Use Status: Never used Tobacco e-Cigarette/Vaping Use: Never Used service: No Current occupational status: retired Sexual orientation: Straight/Heterosexual Gender identity: Female Cognitive needs: No Hearing needs: No Vision needs: No Physical Exam Vital Signs: Last Vital Signs Pulse 92 10/25/25 10:48 BP 124/82 10/25/25 10:48 Pulse Ox 98 10/25/25 10:48 Oxygen Delivery Method Room Air 10/25/25 10:48 BMI result Body Mass Index 26.6 Office Procedures Glucose Monitoring Details Details: See HPI 20566 - Glucose monitoring, continuous-physician I&R Procedure code (CPT) selection complete Results AMB Hemoglobin A1c AMB Hemoglobin A1c 7.2 % Last Edit by LOWELL Dahl on 10/25/25 11:06 Results Reviewed Results Reviewed: Laboratory Last Values Glucose (Clinic) 131 mg/dL (60-115) H 10/25/25 10:57 Laboratory Tests 11/16/24 03/30/25 16:12 10:12 Plt Count 318 Creatinine 0.73 Estimated GFR > 60 Hemoglobin A1c % 6.6 H AST 24 ALT 32 H LDL Cholesterol Direct 68 TSH 1.42 Urine Creatinine 34.44 Urine Microalbumin 11.0 Microalb/Creat Ratio 31.9 H Assessment & Plan Assessment & Plan (1) Controlled type 2 diabetes mellitus: Code(s): E11.9 - Type 2 diabetes mellitus without complications Category: Medical (2) Hypertension, essential: Code(s): I10 - Essential (primary) hypertension Category: Medical (3) Hyperlipidemia: Code(s): E78.5 - Hyperlipidemia, unspecified Category: Medical Qualifiers: Hyperlipidemia type: pure hypercholesterolemia Qualified Code(s): E78.00 - Pure hypercholesterolemia, unspecified Plan In summary this is a 65-year-old female with controlled type 2 diabetes per CGM data. Continue Mounjaro 2.5 mg weekly. We discussed the recent recall, and she did receive a letter about her sensors the other day. This may explain the frequent low alerts during which she is asymptomatic. Advised patient to check a fingerstick glucose if she has alerted to higher low blood sugar by the sensor. She is going to contact the manufacture about this. She is doing better with her diet. She has seen the dietitian. Reviewed treatment of hypo and hyperglycemia. She has glucose tablets. Hypertension is controlled. Continue losartan. Continue amlodipine. Continue atorvastatin for hyperlipidemia and cardiovascular risk reduction. Reminded to have lab work done. The patient elects to call if she is confirming low blood sugars with fingerstick checks. Deferred sooner follow up. Schedule routine diabetic follow up in 3 months. Orders: Orders AMB Hemoglobin A1c Today E11.29 - Type 2 diabetes mellitus with other diabetic kidney complication, R80.9 - Proteinuria, unspecified, Z13.9 - Encounter for screening, unspecified, Z79.4 - FDC (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 of insulin AMB Glucose Monitoring Today E11.9 - Type 2 diabetes mellitus without complications Medications: New tirzepatide (Mounjaro) for 4 weeks 2.5 mg (0.5 mL) subcut QWEEK 2 mL 3RF Discontinued metformin ER Discontinued Reason: Doctor's Order 1,500 mg (3 x 500 mg) PO DAILY 270 tabs 1RF tirzepatide (Mounjaro) Replaces Mounjaro 2.5 mg. Discontinued Reason: Doctor's Order 5 mg (0.5 mL) subcut QWEEK 2 mL 2RF Coding Level of Care Code Est Pt Level 4 (60932) Diagnoses Controlled type 2 diabetes mellitus E11.9 Hypertension, essential I10 Pure hypercholesterolemia E78.00 Hyperlipidemia type: pure hypercholesterolemia CPT Codes Details - CPT: 07907 - Glucose monitoring, continuous-physician I&R ([id number])
[2025-10-25 11:01] LABS: Glucose, Whole Blood 131 mg/dL (60-115)
--- OUTSIDE RECORDS SUMMARY | 2025-10-25 13:51 | XMS_ITS | Clinical Summary ---
Author Organization [facility] Address [address] [place] [phone] Phone Care Team Providers Care Anode Machine Operator Name Role Phone Gila Bragg MD Primary Care Provider Allergies No known active allergies Medications cyclobenzaprine (FLEXERIL) 10 mg tablet Take 1 tablet (10 mg total) by mouth 2 (two) times a day if needed for muscle spasms for up to 5 days. 10 tablet 12/14/2024 Active Medical History Medical History Date Comments Diabetes mellitus (CMS/[facility] V24, CMS/[facility] V28) Fibromyalgia Social History Tobacco Use Types Packs/Day Years Used Date Smoking Tobacco: Never Assessed Comments Unknown Sex and Gender Information Value Date Recorded Sex Assigned at Female 12/14/2024 9:06 AM EST Legal Sex Female 9:24 AM EST Gender Identity Female 12/14/2024 9:06 AM EST Sexual Orientation Straight 12/14/2024 9: 06 AM EST Last Filed Vital Signs Vital Sign Reading [...] patient's age to complete this topic Insurance [facility] [id number] Care Teams Anode Machine Operator Relationship Specialty Start Date End Date Gila Bragg MD [address] [place] [phone] PCP - General Internal Medicine 06/21/21
== END 2025-10-25 11:25 | disposition home or self-care (01) ==
LOC: HO.ENCR 10:46
PROVIDERS: PCP Internal Medicine; Visit Provider Physician Assistant Medical
DX: E11.29 Type 2 diabetes mellitus with other diabetic kidney complication (principal); R80.9 Proteinuria, unspecified; Z79.4 Long term (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 of insulin; I10 Essential (primary) hypertension; E78.00 Pure hypercholesterolemia, unspecified

== ENCOUNTER 2025-10-27 11:21 | Outpatient (REF) | payer OTHER, SELFPAY ==
[2025-10-27 13:35] LABS: Creatinine, mg/dL 75.02
[2025-10-27 14:24] LABS: Total Volume 24 Hour Urine 1525 mL
--- OUTSIDE RECORDS SUMMARY | 2025-10-27 14:58 | XMS_ITS | Clinical Summary ---
Author Organization [facility] Address [address] [place] [phone] Phone Care Team Providers Care County Treasurer Name Role Phone Gila Bragg MD Primary Care Provider [phone] Allergies No known active allergies Medications cyclobenzaprine (FLEXERIL) 10 mg tablet Take 1 tablet (10 mg total) by mouth 2 (two) times a day if needed for muscle spasms for up to 5 days. 10 tablet 12/14/2024 Active Medical History Medical History Date Comments Diabetes mellitus (CMS/[facility] V24, CMS/[facility] V28) Fibromyalgia Social History Tobacco Use [...] patient's age to complete this topic Insurance [facility] [place] [id number] Care Teams County Treasurer Relationship Specialty Start Date End Date Gila Bragg MD [address] [place] [phone] PCP - General Internal Medicine 06/21/21
== END 2025-10-27 11:22 | disposition home or self-care (01) ==
LOC: HO.LNP 11:21
PROVIDERS: Visit Provider Internal Medicine Endocrinology, Diabetes & Metabolism
DX: E11.65 Type 2 diabetes mellitus with hyperglycemia (principal); M81.0 Age-related osteoporosis without current pathological fracture
CPT/HCPCS: 82340; 82570

== ENCOUNTER 2025-11-02 08:10 | Outpatient (AMB) | payer OTHER, SELFPAY ==
[2025-11-02 08:18] VITALS: BP 119/70; PULSE 86; RESP 16; O2SAT 98; BMI 26.0
--- NOTE | 2025-11-02 08:18 | MHC.OFFVIS ---
Vital Signs 11/02/25 08:18 Height 5 ft 2 in Weight 142 lb BMI 26.0 BP 119/70 Blood Pressure Location Lt brachial Position Sitting Respiration 16 Pulse 86 Pulse Source Pulse Oximeter Pulse Oximetry (%) 98 Oxygen Delivery Method Room Air Intake Visit Reasons: TPI: B/l Trapezius Intake Note: Bilateral trapezius trigger point injections with Ropicacaine Hydrochloride injection 100mg/209mL Batch :[id number] EXPIRY: and Triamcinolone Acetonide 40mg per mL LOT: [id number] EXP:2027-04. Director Traffic And Planning Required: No Accompanied by: Self / Same As Patient Allergies lisinopril Allergy (Unknown, Verified 11/02/25 08:23) rash gabapentin Adverse Reaction (Mild, Verified 11/02/25 08:23) Unable to control pain [facility] Medical History (Updated 11/02/25 @ 08:55 by Gian Roland MD) Hyperlipidemia Hypoglycemia Controlled type 2 diabetes mellitus Needle phobia Diabetes mellitus with hyperglycemia Fibromyalgia Encounter for general adult medical examination with abnormal findings Anxiety, generalized Vitamin D deficiency Back spasm Hypertension, essential Surgical History (Updated 10/25/25 @ 10:55 by LOWELL Dahl) History of cataract surgery History of abdominal hysterectomy Family History Father Parkinson disease Mother Osteoporosis HTN (hypertension) Maternal Grandmother Cancer of kidney Maternal Grandfather Stroke Brother No problems noted. Brother No problems noted. Brother No problems noted. Sister No problems noted. Sister No problems noted. Sister No problems noted. Son No problems noted. Son No problems noted. Daughter No problems noted. Maternal Uncle Lung cancer Social History Household Members: Significant Other Housing: House Alcohol intake: never Patient Tobacco Use Status: Never used Tobacco e-Cigarette/Vaping Use: Never Used service: No Current occupational status: retired Sexual orientation: Straight/Heterosexual Gender identity: Female Cognitive needs: No Hearing needs: No Vision needs: No Physical Exam Vital Signs: Last Vital Signs Pulse 86 11/02/25 08:18 Resp 16 11/02/25 08:18 BP 119/70 11/02/25 08:18 Pulse Ox 98 11/02/25 08:18 Oxygen Delivery Method Room Air 11/02/25 08:18 BMI result Body Mass Index 26.0 Assessment & Plan Assessment & Plan (1) Myofascial pain syndrome: Code(s): M79.18 - Myalgia, other site Category: Medical Plan Bilateral trapezius muscle trigger point injection. After obtaining informed consent the patient was positioned sitting on the examination bed. Time-out was performed delineating name and date of of the patient nature of the procedure. Patient agreed to go for the procedure. The trapezius muscles were palpated and most tender points were delineated. After that the area were prepped with ChloraPrep and 5 cc of ropivacaine mixed with Kenalog 20 mg was injected into the right trapezius muscle and after that into the left trapezius muscle. Upon completion of the injections needle was withdrawn sterile Band-Aid was applied. Patient tolerated the procedure well. Coding Level of Care Code Procedure Only Diagnoses Myofascial pain syndrome M79.18
== END 2025-11-02 09:07 | disposition home or self-care (01) ==
LOC: HO.PMC 08:11
PROVIDERS: PCP Internal Medicine; Visit Provider Anesthesiology
DX: M79.18 Myalgia, other site (principal)
CPT/HCPCS: 20552

== ENCOUNTER → 2025-11-02 08:10 | Outpatient (BNVA) | payer OTHER, SELFPAY | PROVIDERS: PCP Internal Medicine; Visit Provider Anesthesiology | DX: M79.18 Myalgia, other site (principal) | CPT/HCPCS: 20552 ==